=== PATIENT | male | born 1965 | race Caucasian/White ===

== ENCOUNTER 2019-05-18 08:43 | Emergency (ER) | payer MEDICARE, MEDICAID, SELFPAY ==
[2019-05-18 08:57] VITALS: BMI 25.1
[2019-05-18 08:58] VITALS: BP 149/86; PULSE 85; RESP 20; TEMP 36.5; O2SAT 95
[2019-05-18 09:58] VITALS: BP 152/92; PULSE 83; RESP 18; O2SAT 96
--- NOTE | 2019-05-18 09:59 | W.ED.SOB ---
HPI - SOB/Dyspnea General: Chief Complaint: Shortness of Breath/Dyspnea Stated Complaint: SOB Time Seen by Provider: 05/18/19 09:59 PFSH ED PFSH: Social History Smoking and tobacco status: current every day smoker Course Vital Signs: Vital signs: Vital Signs Temperature 97.7 F 05/18/19 08:58 Pulse Rate 85 05/18/19 08:58 Respiratory Rate 20 H 05/18/19 08:58 Blood Pressure 149/86 05/18/19 08:58 Pulse Oximetry 95 05/18/19 08:58 Discharge Plan Discharge Prescriptions: No Action albuterol sulfate 90 mcg/actuation Hfa Aerosol Inhaler 2 puff INHALATION 6XD PRN (Reason: Bronchospasm) RF: 0 Coding Level of Care Code ED Piano Mechanic for Franklin Engel
--- NOTE | 2019-05-18 09:59 | W.ED.SOB ---
HPI - SOB/Dyspnea General: Chief Complaint: Shortness of Breath/Dyspnea Stated Complaint: SOB Time Seen by Provider: 05/18/19 09:59 Source: patient Mode of arrival: ambulatory Limitations: no limitations History of Present Illness: HPI Narrative: Patient is a 53-year-old male with a history of COPD here for a refill request of his albuterol inhaler. Patient states he has to use his albuterol inhaler every few days and normally takes this in conjunction with an Advair inhaler. States he is currently having trouble with his Medicaid and has not been able to get these filled. Patient denies fever/chills. He is in no respiratory distress. MD elicited complaint: shortness of breath Pertinent past history: COPD Onset (ago): day(s) Timing: constant Severity: mild Known history of: COPD Associated symptoms: Reports no associated symptoms; Deny chest congestion, chest pain, fever(s), hemoptysis, lightheadedness, palpitations or syncope Review of Systems Const: Denies: fever, chills, body aches, change in appetite, change in weight or fatigue Card: Denies: chest pain, palpitations, irregular heart rhythm, edema, swelling of feet/ankles, lightheadedness, syncope or pre-syncope Resp: Reports: shortness of breath; Denies: productive cough, non-productive cough, pain on inspiration, change in phlegm color, coughing up blood or chest congestion PFSH ED PFSH: Social History Smoking and tobacco status: current every day smoker Physical Exam Const: COMMON NORMALS: no apparent distress, average body habitus, oriented x3, no limitations, alert and well nourished Resp: COMMON NORMALS: normal respiratory effort and clear to auscultation bilaterally AUSCULTATION: clear to auscultation bilaterally Cardio: COMMON NORMALS: regular rate and regular rhythm RATE: regular rate RHYTHM: regular rhythm Neuro: COMMON NORMALS: oriented x3 SENSORIUM/ORIENTATION: Yes alert Skin: COMMON NORMALS: no rashes or lesions noted GENERAL SKIN EXAM: no rashes or lesions noted Course Vital Signs: Vital signs: Vital Signs Temperature 97.7 F 05/18/19 08:58 Pulse Rate 84 05/18/19 10:26 Respiratory Rate 18 05/18/19 10:24 Blood Pressure 152/92 05/18/19 10:24 Pulse Oximetry 96 05/18/19 10:24 MDM - SOB/Dyspnea MDM Narrative: Medical decision making narrative: Patient refuses any form of work-up today including labs or x-ray imaging. Ultimately based on vitals and patient's clinical appearance I do not feel these are going to change person. Patient will be given an Albuterol inhaler here and given a prescription for his Advair. Recommend he follow-up with PCP once his Medicaid goes through. Return to ED precautions given. Discharge Plan Discharge Patient Disposition: Home, Self-Care Clinical Impression: COPD (chronic obstructive pulmonary disease) Qualifiers: COPD type: unspecified COPD Qualified Code(s): J44.9 - Chronic obstructive pulmonary disease, unspecified Condition: Stable Prescriptions: New Advair Diskus 250-50 mcg/dose blister with device 1 inh INHALATION BID Qty: 14 RF: 0 No Action albuterol sulfate 90 mcg/actuation Hfa Aerosol Inhaler 2 puff INHALATION 6XD PRN (Reason: Bronchospasm) RF: 0 Discharge Orders: Discharge Order (Routine); Ordered 05/18/19 Ordered By: Joie Lugo Referrals: Olinda Meraz DO [Family Provider] - Discharge Diet: Usual diet Discharge Activity: Increase activity as tolerated Activity Restrictions/Additional Instructions: Follow up with primary care as soon as you get your Medicaid approved. Discharge Date/Time: 05/18/19 10:26 Coding Level of Care Code ED [facility] for Franklin Engel
--- NOTE | 2019-05-18 10:01 | PC.NURSE ---
Patient reports that he is out of his inhaler and has been unable to get medications filled as he is having problems with covering his medications. Patient declined Joie's request for chest xray and stated he just needed his medication.
[2019-05-18] MEDS: albuterol 8 gm MDI 2 PUFF INHALATION (10:21)
[2019-05-18 10:24] VITALS: BP 152/92; PULSE 83; PULSE 85; RESP 18; O2SAT 94; O2SAT 96
[2019-05-18 10:26] VITALS: PULSE 84
== END 2019-05-18 10:26 | disposition home or self-care (01) ==
PROVIDERS: Emergency Provider Physician Assistant; Family Provider Family Medicine
DX: J44.9 Chronic obstructive pulmonary disease, unspecified (principal); F17.200 Nicotine dependence, unspecified, uncomplicated
CPT/HCPCS: 94640; 99281; 99282; J3535

== ENCOUNTER 2020-05-09 17:29 | Inpatient (IN) | payer MEDICARE, MEDICAID, SELFPAY ==
[2020-05-09] VITALS (18 sets, daily range): BP systolic 106–191; BP diastolic 59–119; PULSE 86–113; RESP 14–33; TEMP 37.3; O2SAT 90–100; BMI 27.6
--- NOTE | 2020-05-09 17:32 | ECG_ITS ---
[facility] Test Date: 2020-05-09 Pat Name: Kervin Karimi Department: Room: Gender: Male Pulverizer Operator: : 1965 Requested By: Mikayla Noramn Order Number: [id number] Bora MD: MARA HDEZ Measurements Intervals [place] Rate: 106 P: 79 AR: 151 QRS: 85 QRSD: 102 T: 76 QT: 308 QTc: 410 Interpretive Statements SINUS TACHYCARDIA POSSIBLE RIGHT ATRIAL ENLARGEMENT [0.25mV P WAVE] POSSIBLE LEFT ATRIAL ENLARGEMENT [-0.1mV P WAVE IN V1/V2] INCOMPLETE RIGHT BUNDLE BRANCH BLOCK [90+ ms QRS DURATION, TERMINAL R IN V1/V2, 40+ ms S IN I/aVL/V4/V5/V6] ABNORMAL RHYTHM ECG Compared to ECG 01/29/2019 18:06:39 Sinus rhythm no longer present Indeterminate axis no longer present Electronically Signed On 05-09-2020 18:15:12 C D STRIPPER by MARA HDEZ [id number]
--- NOTE | 2020-05-09 17:32 | XRR_ITS ---
PROCEDURE INFORMATION: Exam: XR Chest, 1 View Exam date and time: 05/09/2020 6:11 PM Age: 54 years old Clinical indication: Cough and shortness of breath; Additional info: Short of breath TECHNIQUE: Imaging protocol: XR of the chest Views: 1 view. COMPARISON: CR Chest 1 [place] [id number] 01/29/2019 1:21 PM FINDINGS: Lungs: There is a streaky airspace opacities in the right upper lobe and left retrocardiac region. No consolidation. No pleural effusion or pneumothorax. Pleural spaces: See Lungs finding. Heart/Mediastinum: Stable cardiomediastinal silhouette. Bones/joints: Unremarkable. XR/XR chest 1V portable [id number] IMPRESSION: Streaky opacities in the right upper lobe and left retrocardiac region, which may represent atelectasis or pneumonia in the adequate clinical setting.
[2020-05-09] MEDS: ipratropium-albuterol 3 mL Neb 9 ML INHALATION (17:58)
--- NOTE | 2020-05-09 18:08 | W.ED.SOB ---
HPI - SOB/Dyspnea General: Chief Complaint: Shortness of Breath/Dyspnea Stated Complaint: SOB/ COUGH Time Seen by Provider: 05/09/20 17:31 History of Present Illness: HPI Narrative: This patient is a 54-year-old gentleman who presents by EMS. He is here with severe shortness of breath that is been going on for several days. He has a history of COPD. He uses oxygen at home. He supposed to just use it at night but he has been using it during the day. He said he has been using 4 L nasal cannula. EMS reports that he was not on oxygen when they arrived. Also complains of coughing up green sputum. He denies history of heart problems or heart failure. He does have a history of drug abuse. He has not had any exposure to Covid that he is aware of. He said he has nebulizer treatments at home but he has not been using them as he supposed to. He is in quite a bit of distress. MD elicited complaint: shortness of breath and cough Pertinent past history: COPD and other (Drug use, unknown if IV) Onset (ago): day(s) (Several) Context: medication noncompliance Timing: constant and progressively worsening Severity: severe Exacerbating factors: lying flat, movement, coughing, talking and deep breaths Relieving factors: oxygen Known history of: COPD and recurrent pneumonia Associated symptoms: Reports chest congestion, chest pain, cough, extremity pain, lightheadedness and myalgias; Deny abdominal pain, fever(s), nausea or vomiting Treatment prior to arrival: oxygen, bronchodilator and other (Solu-Medrol) Review of Systems General: Reports: 10 or more systems reviewed and unremarkable except in HPI and below Const: Reports: fatigue and malaise; Denies: fever(s) or chills Eyes: Denies: change in vision ENMT: Denies: odynophagia Card: Reports: chest pain and lightheadedness Resp: Reports: dyspnea, productive cough, wheezing and chest congestion GI: Denies: abdominal pain, nausea or vomiting : Denies: flank pain Musc: Reports: extremity pain Skin/Breast: Denies: rash Neuro: Denies: headache(s), numbness in extremities or weakness in extremities Haroldo/Lymph: Denies: easy bruising or easy bleeding PFS ED PFSH: Medical History Asthma COPD (chronic obstructive pulmonary disease) Depression Nicotine abuse ILIR (obstructive sleep apnea) Pancreatitis seroquel related PUD (peptic ulcer disease) Surgical History H/O hernia repair Family History Other CAD (coronary artery disease) Cancer Social History Smoking and tobacco status: current every day smoker cigarettes Packs smoked per day: 0.5 Second hand smoke exposure: Yes Alcohol intake: never Substance/Drug Use: current Substance/Drug use frequency: few times a month Substance/Drug use type: Marijuana Physical Exam Const: COMMON NORMALS: patient oriented x3 and alert GENERAL APPEARANCE: in distress, anxious and appears older than stated age ORIENTATION/CONSCIOUSNESS: Yes awake, Yes oriented to person and Yes confused HENMT: HEAD & SCALP: normal to inspection FACE & SINUS: normal facial exam Eye: GENERAL EYE: appearance normal, both eyes and all related structures Neck/C-Spine: COMMON NORMALS: supple, no meningeal signs and no JVD Chest: COMMONS NORMALS: normal inspection of the chest Resp: EFFORT & INSPECTION: Yes tachypneic, Yes respiratory distress, Yes labored, Yes retractions and Yes uses accessory muscles AUSCULTATION: wheezes (Bilateral, severe) and diminished lung sounds (Left greater than right) Cardio: COMMON NORMALS: no JVD, regular rhythm and No murmurs present (Cardio) RATE: tachycardic RHYTHM: regular rhythm GI: COMMON NORMALS: Normal to inspection, nondistended, normoactive bowel sounds present, Soft to palpation and non-tender INSPECTION: Yes normal to inspection AUSCULTATION: Yes normoactive bowel sounds PALPATION: Yes Soft to palpation Back/Pelvis: COMMON NORMALS: thoracic and lumbar spine normal to inspection Extremity: COMMON NORMALS: normal to inspection Neuro: COMMON NORMALS: patient oriented x3, moves all extremities, no focal motor deficits and no sensory deficits noted SENSORIUM/ORIENTATION: Yes alert and Yes oriented to person MENINGEAL SIGNS: Yes no meningeal signs Psych: COMMON NORMALS: mental status grossly normal, cooperative and normal affect Skin: COMMON NORMALS: no rashes or lesions noted and turgor normal GENERAL SKIN EXAM: no rashes or lesions noted and turgor normal Procedures Intubation Time out performed: Yes sedative: Etomidate Mg Given: 20 paralytic: Succinylcholine Mg Given: 125 Laryngoscope: fiber optic video scope ET Tube Size: 8 Tube Secured Location: lips (22) Tube Placement Confirmation: visualized tube passing through cords, equal breath sounds bilaterally, no breath sounds over epigastrium and confirmation by capnometry Patient Tolerated Procedure: well Intubation Complications: none Additional Comments: Area was edematous, copious purulent material in the airway. I placed the OG tube with the video laryngoscope as well. Placed and confirmed placement with x-ray and air. Course ED course: Patient presented by ambulance with respiratory distress. He had markedly decreased breath sounds particularly on the left. He had significant wheezing throughout. He is somewhat confused and a difficult historian. He has a history of COPD as well as pneumonia. He also has a history of substance abuse and is a smoker. Covid was done and was negative. Chest x-ray does show some bilateral infiltrates. He coughed up some very thick copious yellow sputum while in the ED. We tried him on BiPAP for a while however his pH dropped from 7.2-7.15 and his CO2 went from 70-90. He did not improve clinically and we decided to go ahead and intubate him. He was alert enough to discuss this with me and seem to understand the plan. He was intubated and will be admitted to the ICU. I gave him antibiotics for pneumonia. His blood pressure has been elevated. I did also give morphine and Ativan to help him tolerate the BiPAP mask which was making him quite anxious. Vital Signs: Vital signs: Vital Signs Temperature 99.1 F 05/09/20 17:34 Pulse Rate 97 05/09/20 21:26 Respiratory Rate 14 05/09/20 21:26 Blood Pressure 128/73 05/09/20 21:26 Pulse Oximetry 96 05/09/20 21:26 MDM - SOB/Dyspnea MDM Narrative: Medical decision making narrative: COPD exacerbation. Pneumonia. Covid. CHF. SC. PE. Septic emboli. Lab Data: Labs: Lab Results 05/09/20 05/09/20 05/09/20 Range/Units 18:03 18:03 18:03 WBC 9.9 (4.0-10.0) 10^3/ uL RBC 5.04 (4.1-5.3) 10^6/u L Hgb 14.2 (11.7-16.6) g/dL Hct 47.0 (42.0-52.0) % MCV 93.3 (80-94) fL MCH 28.2 (28.0-34.0) pg MCHC 30.2 (30.0-36.0) g/dL RDW 13.8 (12.1-15.1) % Plt Count 226 (130-400) 10^3/c mm MPV 11.2 H (7.4-10.4) fL Neut % (Auto) 75.6 % Lymph % (Auto) 12.0 % Dickinson % (Auto) 10.9 % Eos % (Auto) 0.9 % Baso % (Auto) 0.3 % Neut # (Auto) 7.52 (1.8-7.7) 10^3/u L Lymph # (Auto) 1.2 (0.8-4.8) 10^3/u L Dickinson # (Auto) 1.1 H (0.2-0.9) 10^3/u L Eos # (Auto) 0.1 (0.0-0.8) 10^3/u L Baso # (Auto) 0.0 (0.0-0.1) 10^3/u L Nucleated RBC % (a uto) 0 % Nucleated RBCs # 0.0 /100WBC PT 13.50 (12.1-14.9) SECO NDS INR 1.00 (0.8-1.2) D-Dimer 0.61 H (0-0.59) ug/mIFE U Specimen Type Sample Site ABG pH (7.35-7.45) ABG pCO2 (35-45) mmHg ABG pO2 (80.0-100.0) mmH g ABG HCO3 (22-26) mmol/L ABG Base Excess (-2.0-2.0) mmol/ L Everardo Test Hematocrit (42-52) % O2 Delivery Device O2 Liters/Min % Intensive Care Ambulance Paramedic ID Sodium 139 (136-145) mmol/L Potassium 5.2 H (3.5-5.1) mmol/L Chloride 98 (98-107) mmol/L Carbon Dioxide 30 H (22-29) mmol/L Anion Gap 16.2 (5-19) BUN 14 (6-20) mg/dL Creatinine 0.9 (0.7-1.2) mg/dL GFR Calculation 87.6 L (90-130) mL/min Glucose 102 (65-115) mg/dL Calculated Osmolal ity 289 (285-295) mOsm/k g Lactic Acid (0.5-2.2) mmol/L Calcium 8.4 L (8.5-10.5) mg/dL Total Bilirubin 0.3 (0.15-1.2) mg/dL AST 20 (0-40) U/L ALT 16 (0-41) U/L Alkaline Phosphata se 104 (40-130) IU/L Troponin T Baselin e (0-15) ng/L NT-Pro-B Natriuret Pep 154 H (0-125) pg/mL Total Protein 6.6 (6.6-8.7) g/dL Albumin 3.6 (3.5-5.2) g/dL Globulin 3.0 (1.3-4.6) g/dL Urine Color (Yellow) Urine Appearance (CLEAR) Urine pH (5-7) Ur Specific Gravit y (1.005-1.030) Urine Protein (Negative) Urine Glucose (UA) (Normal) Urine Ketones (Negative) Urine Blood (Negative) Urine Nitrate (Negative) Urine Bilirubin (Negative) Urine Urobilinogen (Negative) mg/dL Ur Leukocyte Homa ase (Negative) Urine RBC (0-2) /hpf Urine WBC (0-5) /hpf Ur Squamous Epith Cells (0-5) /hpf Amorphous Sediment /hpf Urine Bacteria (NONE) /hpf Hyaline Casts /lpf Urine Mucus /hpf Urine Opiates Scre en (Negative) ng/mL Ur Barbiturates Sc reen (Negative) ng/mL Ur Phencyclidine S crn (Negative) ng/mL Ur Amphetamines Sc reen (Negative) ng/mL U Benzodiazepines Scrn (Negative) ng/mL Urine Cocaine Scre en (Negative) ng/mL U Marijuana (THC) Screen (Negative) ng/mL SARS-CoV-2 Ag (Rap id) (Negative) 05/09/20 05/09/20 05/09/20 Range/Units 18:03 18:03 18:03 WBC (4.0-10.0) 10^3/ uL RBC (4.1-5.3) 10^6/u L Hgb (11.7-16.6) g/dL Hct (42.0-52.0) % MCV (80-94) fL MCH (28.0-34.0) pg MCHC (30.0-36.0) g/dL RDW (12.1-15.1) % Plt Count (130-400) 10^3/c mm MPV (7.4-10.4) fL Neut % (Auto) % Lymph % (Auto) % Dickinson % (Auto) % Eos % (Auto) % Baso % (Auto) % Neut # (Auto) (1.8-7.7) 10^3/u L Lymph # (Auto) (0.8-4.8) 10^3/u L Dickinson # (Auto) (0.2-0.9) 10^3/u L Eos # (Auto) (0.0-0.8) 10^3/u L Baso # (Auto) (0.0-0.1) 10^3/u L Nucleated RBC % (a uto) % Nucleated RBCs # /100WBC PT (12.1-14.9) SECO NDS INR (0.8-1.2) D-Dimer (0-0.59) ug/mIFE U Specimen Type Sample Site ABG pH (7.35-7.45) ABG pCO2 (35-45) mmHg ABG pO2 (80.0-100.0) mmH g ABG HCO3 (22-26) mmol/L ABG Base Excess (-2.0-2.0) mmol/ L Everardo Test Hematocrit (42-52) % O2 Delivery Device O2 Liters/Min % Intensive Care Ambulance Paramedic ID Sodium (136-145) mmol/L Potassium (3.5-5.1) mmol/L Chloride (98-107) mmol/L Carbon Dioxide (22-29) mmol/L Anion Gap (5-19) BUN (6-20) mg/dL Creatinine (0.7-1.2) mg/dL GFR Calculation (90-130) mL/min Glucose (65-115) mg/dL Calculated Osmolal ity (285-295) mOsm/k g Lactic Acid 1.1 (0.5-2.2) mmol/L Calcium (8.5-10.5) mg/dL Total Bilirubin (0.15-1.2) mg/dL AST (0-40) U/L ALT (0-41) U/L Alkaline Phosphata se (40-130) IU/L Troponin T Baselin e 16 H (0-15) ng/L NT-Pro-B Natriuret Pep (0-125) pg/mL Total Protein (6.6-8.7) g/dL Albumin (3.5-5.2) g/dL Globulin (1.3-4.6) g/dL Urine Color Yellow (Yellow) Urine Appearance Clear (CLEAR) Urine pH 5 (5-7) Ur Specific Gravit y 1.025 (1.005-1.030) Urine Protein 3+ H (Negative) Urine Glucose (UA) Norm (Normal) Urine Ketones Negative (Negative) Urine Blood 2+ H (Negative) Urine Nitrate Negative (Negative) Urine Bilirubin Neg (Negative) Urine Urobilinogen Norm (Negative) mg/dL Ur Leukocyte Homa ase Negative (Negative) Urine RBC 0-4 H (0-2) /hpf Urine WBC 0-4 H (0-5) /hpf Ur Squamous Epith Cells 0-4 H (0-5) /hpf Amorphous Sediment 1+ /hpf Urine Bacteria 1+ H (NONE) /hpf Hyaline Casts 0-4 H /lpf Urine Mucus 2+ /hpf Urine Opiates Scre en (Negative) ng/mL Ur Barbiturates Sc reen (Negative) ng/mL Ur Phencyclidine S crn (Negative) ng/mL Ur Amphetamines Sc reen (Negative) ng/mL U Benzodiazepines Scrn (Negative) ng/mL Urine Cocaine Scre en (Negative) ng/mL U Marijuana (THC) Screen (Negative) ng/mL SARS-CoV-2 Ag (Rap id) (Negative) 05/09/20 05/09/20 05/09/20 Range/Units 18:03 18:16 18:25 WBC (4.0-10.0) 10^3/ uL RBC (4.1-5.3) 10^6/u L Hgb (11.7-16.6) g/dL Hct (42.0-52.0) % MCV (80-94) fL MCH (28.0-34.0) pg MCHC (30.0-36.0) g/dL RDW (12.1-15.1) % Plt Count (130-400) 10^3/c mm MPV (7.4-10.4) fL Neut % (Auto) % Lymph % (Auto) % Dickinson % (Auto) % Eos % (Auto) % Baso % (Auto) % Neut # (Auto) (1.8-7.7) 10^3/u L Lymph # (Auto) (0.8-4.8) 10^3/u L Dickinson # (Auto) (0.2-0.9) 10^3/u L Eos # (Auto) (0.0-0.8) 10^3/u L Baso # (Auto) (0.0-0.1) 10^3/u L Nucleated RBC % (a uto) % Nucleated RBCs # /100WBC PT (12.1-14.9) SECO NDS INR (0.8-1.2) D-Dimer (0-0.59) ug/mIFE U Specimen Type Arterial Sample Site Brachial, left ABG pH 7.26 L (7.35-7.45) ABG pCO2 70.5 H* (35-45) mmHg ABG pO2 60.0 L (80.0-100.0) mmH g ABG HCO3 31.9 H (22-26) mmol/L ABG Base Excess 2.4 H (-2.0-2.0) mmol/ L Everardo Test Pos Hematocrit 47.2 (42-52) % O2 Delivery Device Nc O2 Liters/Min 4.0 % Intensive Care Ambulance Paramedic ID jmn Sodium (136-145) mmol/L Potassium (3.5-5.1) mmol/L Chloride (98-107) mmol/L Carbon Dioxide (22-29) mmol/L Anion Gap (5-19) BUN (6-20) mg/dL Creatinine (0.7-1.2) mg/dL GFR Calculation (90-130) mL/min Glucose (65-115) mg/dL Calculated Osmolal ity (285-295) mOsm/k g Lactic Acid (0.5-2.2) mmol/L Calcium (8.5-10.5) mg/dL Total Bilirubin (0.15-1.2) mg/dL AST (0-40) U/L ALT (0-41) U/L Alkaline Phosphata se (40-130) IU/L Troponin T Baselin e (0-15) ng/L NT-Pro-B Natriuret Pep (0-125) pg/mL Total Protein (6.6-8.7) g/dL Albumin (3.5-5.2) g/dL Globulin (1.3-4.6) g/dL Urine Color (Yellow) Urine Appearance (CLEAR) Urine pH (5-7) Ur Specific Gravit y (1.005-1.030) Urine Protein (Negative) Urine Glucose (UA) (Normal) Urine Ketones (Negative) Urine Blood (Negative) Urine Nitrate (Negative) Urine Bilirubin (Negative) Urine Urobilinogen (Negative) mg/dL Ur Leukocyte Homa ase (Negative) Urine RBC (0-2) /hpf Urine WBC (0-5) /hpf Ur Squamous Epith Cells (0-5) /hpf Amorphous Sediment /hpf Urine Bacteria (NONE) /hpf Hyaline Casts /lpf Urine Mucus /hpf Urine Opiates Scre en Negative (Negative) ng/mL Ur Barbiturates Sc reen Negative (Negative) ng/mL Ur Phencyclidine S crn Negative (Negative) ng/mL Ur Amphetamines Sc reen Positive H (Negative) ng/mL U Benzodiazepines Scrn Negative (Negative) ng/mL Urine Cocaine Scre en Negative (Negative) ng/mL U Marijuana (THC) Screen Positive H (Negative) ng/mL SARS-CoV-2 Ag (Rap id) Negative (Negative) Critical Care Time Critical Care Time: Total Critical Care Time: 40 Attestation: I provided 40 minutes of critical care time to this patient exclusive of other procedures. This time included multiple reevaluations of respiratory status, vitals, pH and other ABG results. I adjusted the BiPAP for decreasing sats. Consultation with hospitalist for admission to the ICU. History per EMS and family members. Discharge Plan Discharge Admit Provider: Jennie Ramírez Coding Level of Care Code ED Linen Controller for Chg Fwd Exam Comprehensive
[2020-05-09 18:12] LABS: Basophils % 0.3 %; Eosinophils # 0.1 10^3/uL (0.0-0.8); Eosinophils % 0.9 %; Hemoglobin 14.2 g/dL (11.7-16.6); Lymphocytes # 1.2 10^3/uL (0.8-4.8); Mean Corpuscular HGB Conc 30.2 g/dL (30.0-36.0); Mean Corpuscular Hemoglobin 28.2 pg (28.0-34.0); Mean Corpuscular Volume 93.3 fL (80-94); Mean Platelet Volume 11.2 fL (7.4-10.4); Monocytes # 1.1 10^3/uL (0.2-0.9); Monocytes % 10.9 %; Neutrophils # 7.52 10^3/uL (1.8-7.7); Neutrophils % 75.6 %; Nucleated Red Blood Cells % 0 %; Platelet Count 226 10^3/cmm (130-400); Red Blood Count 5.04 10^6/uL (4.1-5.3); Red Cell Distribution Width 13.8 % (12.1-15.1); White Blood Count 9.9 10^3/uL (4.0-10.0)
--- NOTE | 2020-05-09 18:23 | PC.NURSE ---
EKG done at 1748 and shown to ER doctor
[2020-05-09 18:27] LABS: ABG PH Result 7.26 (7.35-7.45); Arterial Blood Gas Hematocrit 47.2 % (42-52); Base Excess ABG 2.4 mmol/L (-2.0-2.0); Blood Gas Allen Test Pos; Blood Gas Sample Site Brachial, left; Blood Gas Sample Type Arterial; HCO3 ABG 31.9 mmol/L (22-26); Oxygen Device NC
[2020-05-09 18:28] LABS: ABG PCO2 70.5 mmHg (35-45)
[2020-05-09 18:33] LABS: Troponin(5th) Baseline 16 ng/L (0-15)
[2020-05-09 18:34] LABS: Lactic Sepsis W/Reflex 1.1 mmol/L (0.5-2.2)
[2020-05-09 18:40] LABS: Alanine Aminotransferase 16 U/L (0-41); Albumin Level 3.6 g/dL (3.5-5.2); Alkaline Phosphatase 104 IU/L (40-130); Blood Urea Nitrogen 14 mg/dL (6-20); Calcium 8.4 mg/dL (8.5-10.5); Carbon Dioxide 30 mmol/L (22-29); Chloride 98 mmol/L (98-107); Glomerular Filtration Rate 87.6 mL/min (90-130); Glucose 102 mg/dL (65-115); NT Pro B Type Natriuretic Pept 154 pg/mL (0-125); Osmolality Calculated 289 mOsm/kg (285-295); Sodium 139 mmol/L (136-145); Total Bilirubin 0.3 mg/dL (0.15-1.2); Total Protein 6.6 g/dL (6.6-8.7)
[2020-05-09 18:43] LABS: Anion Gap 16.2 (5-19); Aspartate Amino Transferase 20 U/L (0-40); Potassium 5.2 mmol/L (3.5-5.1)
[2020-05-09] MEDS: morphine 4 mg/mL SDV 1 mL IVP (18:43)
[2020-05-09] MEDS: LORazepam 2 mg/mL INJ 1 mL 1 MG IVP (18:43)
[2020-05-09 18:47] LABS: Amphetamines Screen Urine Positive (Negative); Barbiturates Screen Urine Negative (Negative); Benzodiazepines Screen Urine Negative (Negative); Cocaine Screen Urine Negative (Negative); Opiate Screen Urine Negative (Negative); PCP Screen Urine Negative (Negative); THC Screen Urine Positive (Negative)
[2020-05-09 18:49] LABS: Specific Gravity, Urine 1.025 (1.005-1.030); Urine Appearance Clear (CLEAR); Urine Color Yellow (Yellow); pH Urine 5 (5-7)
[2020-05-09 18:50] LABS: Add Urine Microscopic? YES; Amorphous Sediment Urine 1+ /hpf; Bacteria Urine 1+ /hpf; Bilirubin Urine Neg (Negative); Blood Urine 2+ (Negative); Glucose Urine UA Norm (Normal); Hyaline Casts Urine 0-4 /lpf; Ketones Urine Negative (Negative); Leukocyte Esterase Urine Negative (Negative); Mucus Urine 2+ /hpf; Nitrate Urine Negative (Negative); Protein Urine 3+ (Negative); RBC Urine 0-4 /hpf (0-2); Squamous Epithelial Cell Urine 0-4 /hpf (0-5); Urobilinogen Urine Norm (Negative); WBC Urine 0-4 /hpf (0-5)
[2020-05-09 18:52] LABS: SARS Covid-2 Antigen Negative (Negative)
[2020-05-09 19:10] LABS: D Dimer 0.61 ug/mIFEU (0-0.59)
--- NOTE | 2020-05-09 19:32 | ECG_ITS ---
[facility] Test Date: 2020-05-09 Pat Name: Kervin Karimi Department: Room: ICU07 Gender: Male Pediatrics Hospitalist: : 1965 Requested By: Mikayla Norman Order Number: [id number] Bora MD: Edvin Godwin M.D. Measurements Intervals [place] Rate: 117 P: IN: QRS: 92 QRSD: 109 T: 72 QT: 316 QTc: 441 Interpretive Statements Sinus tachycardia Possible left atrial enlargement BORDERLINE RIGHT AXIS DEVIATION [QRS AXIS > 90] INCOMPLETE RIGHT BUNDLE BRANCH BLOCK [90+ ms QRS DURATION, TERMINAL R IN V1/V2, 40+ ms S IN I/aVL/V4/V5/V6] ABNORMAL RHYTHM ECG Compared to ECG 05/09/2020 17:48:27 Sinus tachycardia no longer present Electronically Signed On 05-10-2020 16:10:14 DOUGHNUT DOUGH MIXER by Edvin Godwin M.D. [id number]
--- NOTE | 2020-05-09 19:53 | P.HP_ITS ---
Providers/Chief Complaint Primary Care Provider: Gerry Calixto MD Chief Complaint: SOB/ COUGH History of Present Illness Kervin Karimi is a 54 year old male who has history of polysubstance abuse, oxygen dependent COPD, presented today with chief complaint of respiratory distress. Patient is endorsing that usually he uses 2 to 3 L of oxygen at night but recently because of respiratory stress he has started using 4 L [id number]. He called EMS because of respiratory distress however at the time of EMS evaluation he was not on any supplemental oxygen. He was put on nonrebreather mask. Initial ABG revealed hypoxia and hypercapnic respiratory failure, repeat blood gas showed worsening hence he was intubated in the ER before my interview with him. When I entered the room Dr. Roberts had just intubated him with a ET size 8, e tomidate and succinylcholine were used, he was very agitated propofol was increased up to 30 and fentanyl 50 mcg IV push was given, I requested fentanyl infusion as well, patient had thick copious yellowish-green secretions in his ET tube, during intubation a lot of pharyngeal secretions were noted. He was given ceftriaxone and azithromycin in the ER, no leukocytosis but he meets sepsis criteria with tachypnea and tachycardia, chest x-ray showing bilateral perihilar infiltrates, daughter also called us to update regarding his heavy polysubstance abuse history. In the ER he tested positive for marijuana and methamphetamines. Hyperkalemia evident on BMP. Lactic acid normal. EKG unremarkable troponin not significantly high. Post intubation chest x-ray revealed endotracheal tube 3 to 4 cm above lance because of his active agitation his endotracheal tube was not advanced. His O2 saturation was 97 to 98% on ventilator settings PRVC FiO2 50%, PEEP 8, tidal volume 550 respiratory rate 14 Review of Systems General: Reports: ROS unobtainable due to endotracheal tube Medications/Allergies Home Medications Medication Instructions Recorded Confirmed Last Taken Type albuterol sulfate 90 mcg/actuation 2 puff INHALATION 6XD PRN #18 gm 11/30/19 03/29/20 Unknown Rx aerosol inhaler fluticasone 250 mcg-salmeterol 50 1 inh INHALATION BID #14 each 11/30/19 03/29/20 Unknown Rx mcg/dose blistr powdr for inhalation oxygen-air delivery systems #1 11/30/19 03/29/20 Unknown History albuterol sulfate 2.5 mg/0.5 mL 2.5 mg INHALATION Q20M 03/29/20 03/29/20 Unknown History solution for nebulization budesonide-formoterol HFA 80 2 puff INHALATION BID #10.2 g 03/29/20 03/29/20 Unknown Rx mcg-4.5 mcg/actuation aerosol inhaler varenicline 0.5 mg (11)-1 mg (42) See Rx Instructions PO PER PKG DIR 03/29/20 03/29/20 Unknown Rx tablets in a dose pack #53 ea Allergies Allergy/AdvReac Type Severity Reaction Status Date / Time No Known Allergies Allergy Verified 03/29/20 10:33 PFSH Acute PFSH: Medical History Asthma COPD (chronic obstructive pulmonary disease) Depression Nicotine abuse ILIR (obstructive sleep apnea) Pancreatitis seroquel related PUD (peptic ulcer disease) Surgical History H/O hernia repair Family History Other CAD (coronary artery disease) Cancer Social History Smoking and tobacco status: current every day smoker cigarettes Packs smoked per day: 0.5 Second hand smoke exposure: Yes Alcohol intake: never Substance/Drug Use: current Substance/Drug use frequency: few times a month Substance/Drug use type: Marijuana Vitals/I&O/Wt Last Vital Signs Temp 99.1 F 05/09/20 17:34 Pulse 98 05/09/20 19:25 Resp 33 H 05/09/20 18:46 BP 167/98 05/09/20 18:46 Pulse Ox 96 05/09/20 19:25 Weight last 48 hrs Weight 89.811 kg Physical Exam Narrative: EXAM NARRATIVE: Middle-age male who appears stated age Facial flushing noticed, track conti noticed on upper extremities No active cellulitis Patient very agitated, currently intubated with ET tube size 8 on PRVC settings mentioned in HPI Conjunctival hyperemia bilaterally Copious yellowish-green mucoid secretions noted S1, S2 sinus tachycardia Abdomen soft, nondistended Lower extremity no edema gangrene ulcer Neuro exam limited because of mechanical intubation and current agitation Data : 05/09/20 18:03 05/09/20 18:03 Micro: Microbiology 05/09/20 17:48 Blood Culture - Preliminary Blood SPECIMEN COLLECTED 05/09/20 18:03 Blood Culture - Preliminary Blood SPECIMEN COLLECTED A&P Assessment and plan (1) Acute on chronic respiratory failure with hypoxia and hypercapnia: Status: Acute (2) Polysubstance abuse: Status: Acute (3) COPD exacerbation: Status: Acute (4) Sepsis: Status: Acute (5) Hyperkalemia: Status: Acute Additional A&P Information Acute hypoxic hypercapnic respiratory failure requiring mechanical ventilation Patient tested positive for marijuana and methamphetamine, history of IV drug abuse and alcohol abuse We will request alcohol level Currently intubated and sedated PRVC vent settings tidal volume 550 respiratory rate 14 PEEP 8 FiO2 50% Sedated with propofol and fentanyl, propofol at 30 and fentanyl running at 50 He is hypertensive and tachycardic Sepsis with COPD exacerbation Considering polysubstance abuse and alcohol dependence I would cover him for strep pneumo and Klebsiella Most likely etiology is pneumonia Copious yellowish-green pharyngeal secretions noted Patient is afebrile without leukocytosis, x-ray showing bilateral perihilar infiltrates, D-dimer 0.6 We will cover him with ceftriaxone and azithromycin, Mucomyst+ DuoNeb Check urine antigen Keep him on CIWA protocol Add thiamine before D5 half-normal maintenance fluid Hyperkalemia Mild hyperkalemia potassium 5.2, we will check CPK and phosphorus level along magnesium No XU noted No EKG changes of hyperkalemia Monitor for now Full code N.p.o. DVT prophylaxis Lovenox Attestations Medical Necessity Statement*: Need ICU for acute hypoxic hypercapnic respiratory failure anticipating stay in the hospital cross more than 2 midnights Time Spent in Patient Care: (>than 50% of time spent in counselling and/or direct pt care on unit) . 40mins Coding Level of Care Code Acute Security Consultant for [facility] Fwd Diagnoses Acute on chronic respiratory failure with hypoxia and hypercapnia J96.21; J96.22 Polysubstance abuse F19.10 COPD exacerbation J44.1 Sepsis A41.9 Hyperkalemia E87.5
[2020-05-09 20:09] LABS: Arterial Blood Gas Hematocrit 46.4 % (42-52); Base Excess ABG 0.1 mmol/L (-2.0-2.0); Blood Gas Allen Test Pos; Blood Gas Sample Site Radial, left; Blood Gas Sample Type Arterial; HCO3 ABG 32.3 mmol/L (22-26); Oxygen Device BIPAP
[2020-05-09 20:10] LABS: ABG PCO2 93.2 mmHg (35-45); ABG PH Result 7.15 (7.35-7.45)
[2020-05-09] MEDS: succinylcholine 20 mg/mL SDV 10mL 125 MG IVP (20:25)
--- NOTE | 2020-05-09 20:32 | PC.NURSE ---
EKG done at 2030 and shown to ER doctor and hospitalist
[2020-05-09] MEDS: propofol 1,000 MG/100 ML INJ 5.4 MG IV (20:35)
--- NOTE | 2020-05-09 20:35 | XRR_ITS ---
PROCEDURE INFORMATION: Exam: XR Chest, 1 View Exam date and time: 05/09/2020 8:39 PM Age: 54 years old Clinical indication: Device placement; Ett placement (vent status); Additional info: Tube placement TECHNIQUE: Imaging protocol: XR of the chest Views: 1 view. COMPARISON: CR XR chest 1V portable [id number] 05/09/2020 5:51 PM FINDINGS: Tubes, catheters and devices: Endotracheal tube is in satisfactory position. A feeding tube is in place. Lungs: There is mildly increased bilateral interstitial markings, possible hazy airspace opacities in the right lung. No consolidation. The lung bases are excluded. Pleural spaces: Unremarkable. No pleural effusion. No pneumothorax. Heart/Mediastinum: Stable cardiomediastinal silhouette. Prominent central pulmonary arteries. Bones/joints: Unremarkable. XR/XR chest 1V portable [id number] IMPRESSION: 1. Nonspecific imaging findings, which can be seen with mild pulmonary congestion or pneumonia. Clinical correlation is recommended. 2. Enlarged central pulmonary arteries, suggestive of pulmonary hypertension.
[2020-05-09] MEDS: fentaNYL 50 mcg/mL INJ 2mL IVP (20:38)
[2020-05-09] MEDS: fentaNYL 50 mcg/mL INJ 2mL 100 MCG IVP (20:45)
--- NOTE | 2020-05-09 21:13 | PC.RESP ---
ET tube pushed down 2 cm to 26 a the lip.
[2020-05-09 21:15] LABS: Troponin 5 2HR 17.42 ng/L (0-15); Troponin 5 2HR Delta 1.42 ABS# (0-10)
[2020-05-09 21:23] LABS: NT Pro B Type Natriuretic Pept 183 pg/mL (0-125)
[2020-05-09 21:28] LABS: Creatine Phosphokinase 215 U/L (39-308); Magnesium 1.8 mg/dL (1.7-2.3); Phosphorus 3.4 mg/dL (2.5-4.5)
[2020-05-09 21:47] LABS: ABG PH Result 7.19 (7.35-7.45); Arterial Blood Gas Hematocrit 42.5 % (42-52); Blood Gas Sample Site Radial, left; Blood Gas Sample Type Arterial; Blood Gas Tidal Volume 0.55; HCO3 ABG 31.9 mmol/L (22-26); Oxygen Device VENT; PO2 ABG 89.1 mmHg (80.0-100.0)
[2020-05-09 21:48] LABS: ABG PCO2 84.3 mmHg (35-45)
--- NOTE | 2020-05-09 21:50 | PC.NURSE ---
icu will call back for report
[2020-05-09] MEDS: cefTRIAXone 1,000 MG in sodium chloride 0.9% (plus) 50 ML 100 MG IV (21:53)
[2020-05-09 23:20] LABS: ABG PH Result 7.25 (7.35-7.45); Arterial Blood Gas Hematocrit 46.9 % (42-52); Blood Gas Sample Site Radial, left; Blood Gas Sample Type Arterial; Blood Gas Tidal Volume 0.55; HCO3 ABG 31.7 mmol/L (22-26); Oxygen Device VENT; PO2 ABG 72.9 mmHg (80.0-100.0)
[2020-05-09 23:21] LABS: ABG PCO2 72.2 mmHg (35-45)
[2020-05-09] MEDS: azithromycin 500 MG in sodium chloride 0.9% 250 ML 250 MG IV (23:38)
[2020-05-09 23:41] LABS: Alcohol Level < 10 mg/dL (0-10)
[2020-05-10] VITALS (48 sets, daily range): BP systolic 95–139; BP diastolic 54–74; PULSE 60–100; RESP 16–18; TEMP 36.5–37; O2SAT 91–97
[2020-05-10 00:29] LABS: Troponin 5 6HR 20.82 ng/L (0-15); Troponin 5 6HR Delta 4.82 ng/L (0-12)
[2020-05-10] MEDS: propofol 1,000 MG/100 ML INJ 16.2 MG IV (00:48)
[2020-05-10] MEDS: azithromycin 500 MG in sodium chloride 0.9% 250 ML 250 MG IV ×2 (00:49→22:51)
[2020-05-10] MEDS: enoxaparin 40 mg/0.4 mL Syringe SUBCUT ×2 (00:49→22:51)
[2020-05-10] MEDS: dextrose 5%-sod chloride 0.45% 1,000 ML 75 ML IV ×2 (00:50→11:22)
--- NOTE | 2020-05-10 02:59 | PC.NURSE ---
Addendum entered by Jacob Ling RN 05/10/20 03:57: verified waste with RN Original Note: PROPOFOL WASTE 50 mL wasted with Jarrell Ling RN
[2020-05-10 04:38] LABS: ABG PH Result 7.27 (7.35-7.45); Arterial Blood Gas Hematocrit 41.8 % (42-52); Base Excess ABG 2.2 mmol/L (-2.0-2.0); Blood Gas Sample Site Brachial, left; Blood Gas Sample Type Arterial; Blood Gas Tidal Volume 0.55; Oxygen Device VENT; PO2 ABG 75.1 mmHg (80.0-100.0)
[2020-05-10 05:08] LABS: ABG PCO2 67.3 mmHg (35-45)
[2020-05-10 05:23] LABS: Basophils % 0.1 %; Lymphocytes # 0.3 10^3/uL (0.8-4.8); Lymphocytes % 3.7 %; Mean Corpuscular HGB Conc 30.2 g/dL (30.0-36.0); Mean Corpuscular Hemoglobin 28.5 pg (28.0-34.0); Mean Corpuscular Volume 94.3 fL (80-94); Mean Platelet Volume 11.2 fL (7.4-10.4); Monocytes # 0.3 10^3/uL (0.2-0.9); Neutrophils # 7.63 10^3/uL (1.8-7.7); Nucleated Red Blood Cells % 0 %; Platelet Count 230 10^3/cmm (130-400); Red Blood Count 4.56 10^6/uL (4.1-5.3); Red Cell Distribution Width 14.1 % (12.1-15.1); White Blood Count 8.2 10^3/uL (4.0-10.0)
[2020-05-10] MEDS: LORazepam 2 mg/mL INJ 1 mL IVP (05:27)
--- NOTE | 2020-05-10 05:30 | PC.NURSE ---
FENTANYL MAX per Dr. Ramírez, fentanyl may be increased to 200
[2020-05-10 05:38] LABS: Blood Urea Nitrogen 25 mg/dL (6-20); Calcium 8.2 mg/dL (8.5-10.5); Carbon Dioxide 30 mmol/L (22-29); Chloride 98 mmol/L (98-107); Glucose 134 mg/dL (65-115); Osmolality Calculated 288 mOsm/kg (285-295); Sodium 136 mmol/L (136-145)
[2020-05-10 05:39] LABS: Creatinine Clr Calc Pharmacy 50.3938
[2020-05-10 05:40] LABS: Anion Gap 13.9 (5-19); Potassium 5.9 mmol/L (3.5-5.1)
[2020-05-10] MEDS: ipratropium-albuterol 3 mL Neb INHALATION ×3 (08:16→19:57)
[2020-05-10] MEDS: acetylcysteine 200 mg/mL SDV 4 mL 100 MG INHALATION ×3 (08:16→20:02)
[2020-05-10] MEDS: thiamine 100 mg Tablet PO (08:44)
[2020-05-10] MEDS: folic acid 1 mg Tablet PO (08:44)
[2020-05-10] MEDS: multivitamin therapeutic Tablet 1 TAB PO (08:45)
[2020-05-10] MEDS: cefTRIAXone 1,000 MG in sodium chloride 0.9% (plus) 50 ML 100 MG IV (08:45)
--- NOTE | 2020-05-10 09:48 | PC.PHAR ---
pt unable to verify medications due to being intubated-ext med history shows symbicort 80-4.5mcg 2 puffs bid filled on 05/08/20-proair 2 puffs 6 times a day filled on 05/08/20-chantix starting month filled on 03/29/20-called daughter jerri no answer
[2020-05-10] MEDS: piperacillin-tazobactam 3.375 GM in sodium chloride 0.9% (plus) 50 ML IV ×2 (09:53→17:00)
--- NOTE | 2020-05-10 13:39 | P.PN_ITS ---
Subjective Subjective: Interval history: Patient was seen and examined this morning. Currently he is intubated and sedated. No acute events overnight, continues to remain on mechanical ventilation. PRVC: Tidal volume 540, rate 17, PEEP 10, FiO2 45%. Vitals/I&O/Wt Last Vital Signs Temp 98.6 F 05/10/20 11:00 Pulse 77 05/10/20 13:22 Resp 17 05/10/20 11:51 BP 108/67 05/10/20 12:00 Pulse Ox 93 05/10/20 12:00 05/09/20 05/10/20 05/10/20 22:59 06:59 14:59 Intake Total 50.45 / 50.45 527.564 / 578.014 933.033 / 933.033 Output Total 100 / 100 100 / 100 Balance 50.45 / 50.45 427.564 / 478.014 833.033 / 833.033 Weight last 48 hrs Weight 89.811 kg Physical Exam Narrative: EXAM NARRATIVE: Currently intubated and sedated. Off sedation GCS is 10 T. HENMT: COMMON NORMALS: normocephalic and atraumatic HEAD & SCALP: normocephalic and atraumatic Resp: EFFORT & INSPECTION: Yes symmetric chest movement OTHER: Expiratory wheezing present in both the lungs, no crackles no rhonchi present. Cardio: COMMON NORMALS: regular rate, regular rhythm, S1 normal heart sound present, S2 normal heart sound present, No gallops present (Cardio), No murmurs present (Cardio), No rub (Cardio) and Peripheral pulses 2+ throughout RATE: regular rate RHYTHM: regular rhythm HEART SOUNDS: S1 normal heart sound present and S2 normal heart sound present PERIPHERAL PULSES: Peripheral pulses 2+ throughout GI: COMMON NORMALS: Normal to inspection, nondistended, normoactive bowel sounds present, Soft to palpation, non-tender, No hepatosplenomegaly present and no masses AUSCULTATION: Yes normoactive bowel sounds PALPATION: Yes Soft to palpation and Yes No hepatosplenomegaly present RECTAL EXAM: Yes deferred Extremity: COMMON NORMALS: no clubbing, cyanosis or edema and no pedal edema Urinary Catheter Management^: Ramirez: Cath Placed During This Visit: yes Reason for Continuing Indwelling Catheter: Accurate Measurement of Urinary Output in Critically Ill Patients Urinary Catheter Date of Insertion: 05/09/20 Urinary Catheter Time of Insertion: 20:34 Data : 05/10/20 04:07 05/10/20 04:07 Micro: Microbiology 05/09/20 17:48 Blood Culture - Preliminary Blood SPECIMEN COLLECTED 05/09/20 18:03 Blood Culture - Preliminary Blood SPECIMEN COLLECTED A&P Assessment and plan (1) Acute on chronic respiratory failure with hypoxia and hypercapnia: Acute on chronic hypoxic hypercapnic respiratory failure secondary to COPD exacerbation secondary to pneumonia. ABG: pH 7.27, PCO2: 67, PO2: 75 FiO2: 45% P/F : 75/0.75 On mechanical ventilation: PRVC: Tidal volume 540, rate 17, PEEP 10, FiO2 45%. Solu-Medrol 60 IV every 12H DuoNebS X-ray chest: Blood cultures: Sputum culture: Lactic acid; 1.1 Zosyn 3.375 g every 8 hours Status: Acute (2) Sepsis: Sepsis secondary pneumonia. Plan is 1 Status: Acute (3) Pneumonia: Status: Acute (4) COPD exacerbation: Status: Acute (5) Alcohol abuse: Currently on CIWA protocol: Continue IV hydration, folic acid, thiamine. Status: Acute (6) XU (acute kidney injury): Likely prerenal secondary to dehydration secondary to alcohol abuse. Baseline serum creatinine 0.9. Monitor BMP Avoid nephrotoxic Continue IV hydration Status: Acute (7) Polysubstance abuse: Status: Acute (8) Asthma: COPD asthma overlap syndrome. Plan is 1 Status: Acute Attestations Medical Necessity Statement*: Patient needs to be in hospital for the management of respiratory failure. Critical Care Time: 40 minutes of critical care time was spent on the, mechanical ventilation review, telemetry review, medication and chart review. Critical Care Time (min): 40 Coding Level of Care Code Acute Swaging Machine Adjuster for [facility] Fwd Diagnoses Acute on chronic respiratory failure with hypoxia and hypercapnia J96.21; J96.22 Sepsis A41.9 Pneumonia J18.9 COPD exacerbation J44.1 Alcohol abuse F10.10 XU (acute kidney injury) N17.9 Polysubstance abuse F19.10 Asthma J45.909
[2020-05-10] MEDS: HYDROmorphone 1 mg/mL INJ 1 mL IVP (23:27)
[2020-05-11] VITALS (41 sets, daily range): BP systolic 121–154; BP diastolic 61–91; PULSE 85–103; RESP 13–18; TEMP 36.4–37; O2SAT 92–97
[2020-05-11] MEDS: dextrose 5%-sod chloride 0.45% 1,000 ML 75 ML IV ×2 (00:45→08:59)
[2020-05-11] MEDS: piperacillin-tazobactam 3.375 GM in sodium chloride 0.9% (plus) 50 ML IV ×3 (01:36→17:07)
[2020-05-11] MEDS: HYDROmorphone 1 mg/mL INJ 1 mL IVP (02:00)
[2020-05-11] MEDS: ipratropium-albuterol 3 mL Neb INHALATION ×4 (02:04→19:48)
[2020-05-11 02:30] LABS: Arterial Blood Gas Hematocrit 44.5 % (42-52); Blood Gas Allen Test Pos; Blood Gas Operator Identificat HARKR; Blood Gas Sample Site Radial, right; Blood Gas Sample Type Arterial; Oxygen Device VENT; PO2 ABG 64.9 mmHg (80.0-100.0)
[2020-05-11 02:42] LABS: ABG PCO2 88.4 mmHg (35-45); ABG PH Result 7.11 (7.35-7.45)
[2020-05-11] MEDS: propofol 1,000 MG/100 ML INJ 8.1 MG IV (02:46)
[2020-05-11 04:59] LABS: ABG PCO2 62.2 mmHg (35-45); ABG PH Result 7.25 (7.35-7.45); Base Excess ABG -1.6 mmol/L (-2.0-2.0); HCO3 ABG 26.9 mmol/L (22-26); Oxygen Device VENT; PO2 ABG 69.4 mmHg (80.0-100.0)
[2020-05-11 05:00] LABS: Arterial Blood Gas Hematocrit 40.2 % (42-52); Blood Gas Sample Type ARTERIAL
[2020-05-11 05:45] LABS: Basophils % 0.1 %; Hematocrit 42.4 % (42.0-52.0); Hemoglobin 12.7 g/dL (11.7-16.6); Lymphocytes # 0.3 10^3/uL (0.8-4.8); Lymphocytes % 2.1 %; Mean Corpuscular Hemoglobin 28.2 pg (28.0-34.0); Mean Corpuscular Volume 94.2 fL (80-94); Mean Platelet Volume 10.9 fL (7.4-10.4); Monocytes # 0.5 10^3/uL (0.2-0.9); Monocytes % 4.2 %; Neutrophils # 11.82 10^3/uL (1.8-7.7); Neutrophils % 93.1 %; Nucleated Red Blood Cells % 0 %; Platelet Count 217 10^3/cmm (130-400); Red Cell Distribution Width 14.1 % (12.1-15.1); White Blood Count 12.7 10^3/uL (4.0-10.0)
[2020-05-11 06:13] LABS: Alanine Aminotransferase 10 U/L (0-41); Alkaline Phosphatase 76 IU/L (40-130); Anion Gap 15.8 (5-19); Aspartate Amino Transferase 13 U/L (0-40); Blood Urea Nitrogen 46 mg/dL (6-20); Calcium 7.9 mg/dL (8.5-10.5); Carbon Dioxide 25 mmol/L (22-29); Chloride 98 mmol/L (98-107); Globulin 3.5 g/dL (1.3-4.6); Glomerular Filtration Rate 19.6 mL/min (90-130); Glucose 168 mg/dL (65-115); Osmolality Calculated 294 mOsm/kg (285-295); Potassium 4.8 mmol/L (3.5-5.1); Sodium 134 mmol/L (136-145); Total Bilirubin 0.2 mg/dL (0.15-1.2); Total Protein 6.5 g/dL (6.6-8.7)
[2020-05-11] MEDS: acetylcysteine 200 mg/mL SDV 4 mL 100 MG INHALATION ×4 (07:41→19:59)
[2020-05-11] MEDS: sodium chloride 0.9% 1,000 ML 999 ML IV (08:58)
[2020-05-11] MEDS: folic acid 1 mg Tablet PO (08:58)
[2020-05-11] MEDS: multivitamin therapeutic Tablet 1 TAB PO (08:58)
[2020-05-11] MEDS: thiamine 100 mg Tablet PO (08:58)
[2020-05-11] MEDS: chlordiazePOXIDE 25 mg Capsule 50 MG PO ×2 (08:58→17:07)
[2020-05-11] MEDS: propofol 1,000 MG/100 ML INJ 16.2 MG IV ×3 (08:59→21:19)
[2020-05-11 09:54] LABS: Blood Gas Allen Test POS
--- NOTE | 2020-05-11 14:57 | PM.PN ---
Subjective Subjective: Interval history: Patient was seen and examined this morning.He remains intubated sedated and on mechanical vent. Serum creatinine has worsened to;3.3 as compared to admission serum creatinine of 0.9. He remain afebrile. His other Vitals and labs have been reviewed. Medications: Reviewed: Yes Vitals/I&O/Wt Last Vital Signs Temp 97.8 F 05/11/20 11:00 Pulse 86 05/11/20 14:28 Resp 14 05/11/20 14:28 BP 134/78 05/11/20 14:00 Pulse Ox 95 05/11/20 14:28 05/10/20 05/11/20 05/11/20 22:59 06:59 14:59 Intake Total 149 / 0470.083 6102.490 / 2762.523 875.853 / 875.853 Output Total 100 / 300 450 / 750 350 / 350 Balance 49 / 579.798 7698.490 / 2012.523 525.853 / 525.853 Weight last 48 hrs Weight 89.811 kg Physical Exam Narrative: EXAM NARRATIVE: Currently intubated and sedated. Off sedation GCS is 10 T. HENMT: COMMON NORMALS: normocephalic and atraumatic HEAD & SCALP: normocephalic and atraumatic Resp: EFFORT & INSPECTION: Yes symmetric chest movement OTHER: Expiratory wheezing present in both the lungs, no crackles no rhonchi present. Cardio: COMMON NORMALS: regular rate, regular rhythm, S1 normal heart sound present, S2 normal heart sound present, No gallops present (Cardio), No murmurs present (Cardio), No rub (Cardio) and Peripheral pulses 2+ throughout RATE: regular rate RHYTHM: regular rhythm HEART SOUNDS: S1 normal heart sound present and S2 normal heart sound present PERIPHERAL PULSES: Peripheral pulses 2+ throughout GI: COMMON NORMALS: Normal to inspection, nondistended, normoactive bowel sounds present, Soft to palpation, non-tender, No hepatosplenomegaly present and no masses AUSCULTATION: Yes normoactive bowel sounds PALPATION: Yes Soft to palpation and Yes No hepatosplenomegaly present RECTAL EXAM: Yes deferred Extremity: COMMON NORMALS: no clubbing, cyanosis or edema and no pedal edema Urinary Catheter Management^: Ramirez: Cath Placed During This Visit: yes Reason for Continuing Indwelling Catheter: Accurate Measurement of Urinary Output in Critically Ill Patients Urinary Catheter Date of Insertion: 05/09/20 Urinary Catheter Time of Insertion: 20:34 Data : 05/11/20 05:19 05/11/20 14:17 Micro: Microbiology 05/09/20 18:03 Blood Culture - Preliminary Blood Gram positive cocci 05/09/20 17:48 Blood Culture - Preliminary Blood NEGATIVE TO DATE A&P Assessment and plan (1) Acute on chronic respiratory failure with hypoxia and hypercapnia: Acute on chronic hypoxic hypercapnic respiratory failure secondary to COPD exacerbation secondary to pneumonia. ABG: pH 7.27, PCO2: 67, PO2: 75 FiO2: 45% P/F : 75/0.75 On mechanical ventilation: PRVC: Tidal volume 540, rate 17, PEEP 10, FiO2 45%. Solu-Medrol 60 IV every 24 H DuoNebS X-ray chest: Blood cultures: Sputum culture: Lactic acid; 1.1 Zosyn 3.375 g every 8 hours Status: Acute (2) Sepsis: Sepsis secondary pneumonia. Plan is 1 Status: Acute (3) Pneumonia: Status: Acute (4) COPD exacerbation: Status: Acute (5) Alcohol abuse: Currently on CIWA protocol: Continue IV hydration, folic acid, thiamine. Status: Acute (6) XU (acute kidney injury): Likely prerenal secondary to dehydration secondary to alcohol abuse. Baseline serum creatinine 0.9. Monitor BMP Avoid nephrotoxic Continue IV hydration Status: Acute (7) Polysubstance abuse: Status: Acute (8) Asthma: COPD asthma overlap syndrome. Plan is 1 Status: Acute Additional A&P Information Acute hypoxic hypercapnic respiratory failure requiring mechanical ventilation Patient tested positive for marijuana and methamphetamine, history of IV drug abuse and alcohol abuse We will request alcohol level Currently intubated and sedated PRVC vent settings tidal volume 550 respiratory rate 14 PEEP 8 FiO2 50% Sedated with propofol and fentanyl, propofol at 30 and fentanyl running at 50 He is hypertensive and tachycardic Sepsis with COPD exacerbation Considering polysubstance abuse and alcohol dependence I would cover him for strep pneumo and Klebsiella Most likely etiology is pneumonia Copious yellowish-green pharyngeal secretions noted Patient is afebrile without leukocytosis, x-ray showing bilateral perihilar infiltrates, D-dimer 0.6 We will cover him with ceftriaxone and azithromycin, Mucomyst+ DuoNeb Check urine antigen Keep him on CIWA protocol Add thiamine before D5 half-normal maintenance fluid Hyperkalemia Mild hyperkalemia potassium 5.2, we will check CPK and phosphorus level along magnesium No XU noted No EKG changes of hyperkalemia Monitor for now Full code N.p.o. DVT prophylaxis Lovenox Attestations Medical Necessity Statement*: Needs to be in hospital for management of respiratory failure, pneumonia, alcohol withdrawal. Coding Level of Care Code Acute Wallpaper Installer for g Fwd Diagnoses Acute on chronic respiratory failure with hypoxia and hypercapnia J96.21; J96.22 Sepsis A41.9 Pneumonia J18.9 COPD exacerbation J44.1 Alcohol abuse F10.10 XU (acute kidney injury) N17.9 Polysubstance abuse F19.10 Asthma J45.909
[2020-05-11 15:12] LABS: Anion Gap 15.1 (5-19); Blood Urea Nitrogen 52 mg/dL (6-20); Calcium 8.1 mg/dL (8.5-10.5); Carbon Dioxide 25 mmol/L (22-29); Chloride 98 mmol/L (98-107); Glomerular Filtration Rate 20.3 mL/min (90-130); Glucose 130 mg/dL (65-115); Osmolality Calculated 292 mOsm/kg (285-295); Potassium 5.1 mmol/L (3.5-5.1); Sodium 133 mmol/L (136-145)
[2020-05-11] MEDS: sodium chloride 0.9% 1,000 ML 75 ML IV (17:06)
--- NOTE | 2020-05-11 18:29 | PC.NURSE ---
[address] Thomas. Discussed plan of care. Reviwed labs, I&O, and meds. Orders for 1L bolus, Librium jozef, and BMP @ 1500. 1610 Dr[address] Thomas at bedside. Reported low UOP, color change to NGT output, and reviewed labs. Orders to give patient a sedation vacation. 1715 Patient woke up, opened his eyes to command, moved all extremities, shook his head No to question of pain. Sedation restated.
--- NOTE | 2020-05-11 19:00 | PC.NURSE ---
1200 Reported 1 of 4 blood cultures positive to Dr. Thomas.
[2020-05-11] MEDS: azithromycin 500 MG in sodium chloride 0.9% 250 ML 250 MG IV (22:15)
[2020-05-11] MEDS: enoxaparin 30 mg/0.3 mL Syringe SUBCUT (22:16)
--- NOTE | 2020-05-11 23:00 | PC.NURSE ---
Bladder scan completed based on low u/o. 800+ mL resulted from scan. RN flushed and irrigated chambers cath. Large amounts of sediment with instant clear/pale urine backwash. No further issues.
[2020-05-12] VITALS (38 sets, daily range): BP systolic 101–135; BP diastolic 56–77; PULSE 75–93; RESP 14–18; TEMP 36.4–37.4; O2SAT 91–96
[2020-05-12] MEDS: propofol 1,000 MG/100 ML INJ 16.2 MG IV (01:50)
[2020-05-12] MEDS: piperacillin-tazobactam 3.375 GM in sodium chloride 0.9% (plus) 50 ML IV ×3 (01:59→17:28)
[2020-05-12] MEDS: ipratropium-albuterol 3 mL Neb INHALATION ×4 (03:34→20:08)
[2020-05-12] MEDS: acetylcysteine 200 mg/mL SDV 4 mL 100 MG INHALATION ×4 (03:35→20:10)
[2020-05-12 04:28] LABS: Arterial Blood Gas Hematocrit 41.1 % (42-52); Base Excess ABG -4.3 mmol/L (-2.0-2.0); Blood Gas Allen Test Pos; Blood Gas Sample Type Arterial; Carboxyhemoglobin 0.4 %THgb (0.4-20.1); HCO3 ABG 25.4 mmol/L (22-26); Ionized Calcium Level - ABG 1.2 mmol/L (1.1-1.4); Methemoglobin 0.6 % (0.4-1.5); PO2 ABG 84.7 mmHg (80.0-100.0); Potassium Level - ABG 5.1 mmol/L (3.5-5.0); Total Hemoglobin 13.4 g/dL (14-18)
[2020-05-12 04:29] LABS: ABG PCO2 67.8 mmHg (35-45); ABG PH Result 7.18 (7.35-7.45)
[2020-05-12 04:37] LABS: Basophils % 0.1 %; Eosinophils # 0.1 10^3/uL (0.0-0.8); Eosinophils % 0.4 %; Hematocrit 41.1 % (42.0-52.0); Hemoglobin 12.1 g/dL (11.7-16.6); Lymphocytes # 0.4 10^3/uL (0.8-4.8); Lymphocytes % 3.7 %; Mean Corpuscular HGB Conc 29.4 g/dL (30.0-36.0); Mean Corpuscular Hemoglobin 28.3 pg (28.0-34.0); Mean Corpuscular Volume 96.3 fL (80-94); Mean Platelet Volume 10.8 fL (7.4-10.4); Monocytes # 0.5 10^3/uL (0.2-0.9); Neutrophils # 10.13 10^3/uL (1.8-7.7); Neutrophils % 91.1 %; Nucleated Red Blood Cells % 0 %; Platelet Count 212 10^3/cmm (130-400); Red Blood Count 4.27 10^6/uL (4.1-5.3); Red Cell Distribution Width 14.4 % (12.1-15.1); White Blood Count 11.1 10^3/uL (4.0-10.0)
[2020-05-12 05:03] LABS: Alanine Aminotransferase 8 U/L (0-41); Albumin Level 2.8 g/dL (3.5-5.2); Alkaline Phosphatase 92 IU/L (40-130); Anion Gap 16.3 (5-19); Aspartate Amino Transferase 11 U/L (0-40); Blood Urea Nitrogen 60 mg/dL (6-20); Calcium 7.7 mg/dL (8.5-10.5); Carbon Dioxide 24 mmol/L (22-29); Chloride 100 mmol/L (98-107); Globulin 3.5 g/dL (1.3-4.6); Glomerular Filtration Rate 19.6 mL/min (90-130); Glucose 102 mg/dL (65-115); NT Pro B Type Natriuretic Pept 311 pg/mL (0-125); Osmolality Calculated 297 mOsm/kg (285-295); Potassium 5.3 mmol/L (3.5-5.1); Sodium 135 mmol/L (136-145); Total Bilirubin 0.2 mg/dL (0.15-1.2); Total Protein 6.3 g/dL (6.6-8.7)
--- NOTE | 2020-05-12 05:37 | PC.NURSE ---
New orders: RN notified MD Darrell delivery professional of pt's pH result;7.18. MD also updated on pt status, and current sedation level. No indication of pt overbreathing/underbreathing vent settings, or any other respiratory distress. End tidal CO2 volume fluctuates between 30-40. Pt calm, and well rested throughout shift. MD gave orders to bag pt for 5 minsin attempts to hyperventilate, increase sedation meds, and repeat ABG at 0600. RT and RN at bedside manually bagging pt. Gtt changed, (See MAR). End tidal CO2 ivone significantly. Bagging then stopped. RT placed pt back on vent with ordered vent setting changes.
[2020-05-12] MEDS: propofol 1,000 MG/100 ML INJ 26.9 MG IV ×4 (05:55→16:36)
--- NOTE | 2020-05-12 06:00 | XRR_ITS ---
PROCEDURE INFORMATION: Exam: XR Chest, 1 View Exam date and time: 05/12/2020 5:51 AM Age: 54 years old Clinical indication: Condition or disease; Lung condition and disease; Pneumonia; Cough and shortness of breath; Additional info: Pna TECHNIQUE: Imaging protocol: XR of the chest Views: 1 view. COMPARISON: CR XR chest 1V portable [id number] 05/09/2020 8:22 PM FINDINGS: Tubes, catheters and devices: Endotracheal tube is in satisfactory position. Feeding tube is in satisfactory position. Lungs: See Pleural spaces finding. Pleural spaces: There is a small left pleural effusion. There is airspace opacities in the lower lungs. No pneumothorax. Heart/Mediastinum: Stable cardiomediastinal silhouette. Bones/joints: Unremarkable. XR/XR chest 1V portable [id number] IMPRESSION: Bibasilar airspace opacities and small left pleural effusion. Pneumonia should be excluded clinically. Mild pulmonary edema can have this appearance.
[2020-05-12 06:26] LABS: Blood Gas Allen Test Pos; Blood Gas Operator Identificat JB; Blood Gas Sample Site Radial, right; Blood Gas Sample Type Arterial; Oxygen Device VENT
[2020-05-12 06:38] LABS: ABG PH Result 7.27 (7.35-7.45); Arterial Blood Gas Hematocrit 36.8 % (42-52); Base Excess ABG -2.4 mmol/L (-2.0-2.0); HCO3 ABG 25.2 mmol/L (22-26); PO2 ABG 65.4 mmHg (80.0-100.0)
[2020-05-12] MEDS: sodium chloride 0.9% 1,000 ML 75 ML IV ×2 (07:15→19:25)
[2020-05-12] MEDS: chlordiazePOXIDE 25 mg Capsule 50 MG PO ×2 (09:49→17:27)
[2020-05-12] MEDS: multivitamin therapeutic Tablet 1 TAB PO (09:50)
[2020-05-12] MEDS: folic acid 1 mg Tablet PO (09:50)
[2020-05-12] MEDS: thiamine 100 mg Tablet PO (09:50)
--- NOTE | 2020-05-12 14:40 | PC.SOCIAL ---
Pg 2 IMM Pt is intubated at this time. Left a message on pt's daughter's voicemail & explained IMM. SS number provided if she has any questions. Left a copy a pt's bedside. Initialed, dated, & timed a copy & placed in chart.
[2020-05-12 15:58] LABS: ABG PCO2 51.5 mmHg (35-45); ABG PH Result 7.28 (7.35-7.45); Alveolar-Arterial Oxygen Gradi 28.4 mmHg (5-10); Arterial Blood Gas Hematocrit 37.2 % (42-52); Base Excess ABG -3.2 mmol/L (-2.0-2.0); Blood Gas Allen Test Pos; Blood Gas Sample Site Brachial, right; Blood Gas Sample Type Arterial; Carboxyhemoglobin 0.6 %THgb (0.4-20.1); HGB O2 Sat 92.6 % (95-100); Ionized Calcium Level - ABG 1.1 mmol/L (1.1-1.4); Methemoglobin 1.1 % (0.4-1.5); Oxygen Device VENT; Oxygen Saturation ABG 94.2; Potassium Level - ABG 4.7 mmol/L (3.5-5.0); Total Hemoglobin 12.1 g/dL (14-18)
[2020-05-12 17:00] LABS: Anion Gap 16.8 (5-19); Blood Urea Nitrogen 68 mg/dL (6-20); Carbon Dioxide 22 mmol/L (22-29); Chloride 102 mmol/L (98-107); Glomerular Filtration Rate 20.3 mL/min (90-130); Glucose 114 mg/dL (65-115); Osmolality Calculated 303 mOsm/kg (285-295); Potassium 4.8 mmol/L (3.5-5.1); Sodium 136 mmol/L (136-145)
--- NOTE | 2020-05-12 17:30 | P.PN_ITS ---
Subjective Subjective: Interval history: Mr. Araujo was seen and examined this morning,he continues to remain on mechanical ventilation.Off sedation GCS : 10 T Serum creatinine has peaked: 3.2, though BUN is trending up:68, Solu-Medrol use can contribute to trending up. Chest x-ray in the morning : Bibasilar airspace opacities and small left pleural effusion. ABG: pH: 7.28, PCO2: 51, PO2: 74, FiO2: 50% Medications: Reviewed: Yes Vitals/I&O/Wt Last Vital Signs Temp 97.5 F L 05/12/20 15:00 Pulse 81 05/12/20 17:00 Resp 18 05/12/20 17:12 BP 111/70 05/12/20 17:00 Pulse Ox 93 05/12/20 17:00 05/12/20 05/12/20 05/12/20 06:59 14:59 22:59 Intake Total 1558.465 / 2729.918 355.593 / 355.593 104.035 / 459.628 Output Total 1100 / 1500 600 / 600 Balance 458.465 / 1229.918 355.593 / 355.593 -495.965 / -140.372 Physical Exam Narrative: EXAM NARRATIVE: Currently intubated and sedated. Off sedation GCS is 10 T. HENMT: COMMON NORMALS: normocephalic and atraumatic HEAD & SCALP: normocephalic and atraumatic Resp: EFFORT & INSPECTION: Yes symmetric chest movement OTHER: B/L Diminished Breath sounds. Cardio: COMMON NORMALS: regular rate, regular rhythm, S1 normal heart sound present, S2 normal heart sound present, No gallops present (Cardio), No murmurs present (Cardio), No rub (Cardio) and Peripheral pulses 2+ throughout RATE: regular rate RHYTHM: regular rhythm HEART SOUNDS: S1 normal heart sound present and S2 normal heart sound present PERIPHERAL PULSES: Peripheral pulses 2+ throughout GI: COMMON NORMALS: Normal to inspection, nondistended, normoactive bowel sounds present, Soft to palpation, non-tender, No hepatosplenomegaly present and no masses AUSCULTATION: Yes normoactive bowel sounds PALPATION: Yes Soft to palpation and Yes No hepatosplenomegaly present RECTAL EXAM: Yes deferred Extremity: COMMON NORMALS: no clubbing, cyanosis or edema and no pedal edema Urinary Catheter Management^: Ramirez: Cath Placed During This Visit: yes Reason for Continuing Indwelling Catheter: Accurate Measurement of Urinary Output in Critically Ill Patients Urinary Catheter Date of Insertion: 05/09/20 Urinary Catheter Time of Insertion: 20:34 Data : 05/12/20 03:07 05/12/20 16:35 Micro: Microbiology 05/09/20 18:03 Blood Culture - Preliminary Blood Coagulase negativ staphylococc A&P Assessment and plan (1) Acute on chronic respiratory failure with hypoxia and hypercapnia: Acute on chronic hypoxic hypercapnic respiratory failure secondary to COPD exacerbation secondary to pneumonia. Chest x-ray : Bibasilar airspace opacities and small left pleural effusion. ABG: pH: 7.28, PCO2: 51, PO2: 74, FiO2: 50% On mechanical ventilation: PRVC: Tidal volume 600, rate 18, PEEP 10, FiO2 45%. Initially on Solu-Medrol 60 IV every 24 H have been Discontinued DuoNebS Monitor X-ray chest: Blood cultures: Coagulase negative staph: Likely skin contaminant. Sputum culture: Lactic acid; 1.1 Zosyn 3.375 g every 8 hours Azithromycin 500 mg I.V Daily Status: Acute (2) Sepsis: Sepsis secondary pneumonia. Plan is 1 Status: Acute (3) Pneumonia: Status: Acute (4) COPD exacerbation: Status: Acute (5) Alcohol abuse: Currently on CIWA protocol: Continue IV hydration, folic acid, thiamine. Status: Acute (6) XU (acute kidney injury): Likely prerenal secondary to dehydration secondary to alcohol abuse. Baseline serum creatinine 0.9. Monitor BMP Avoid nephrotoxic Continue IV hydration Status: Acute (7) Polysubstance abuse: Status: Acute (8) Asthma: COPD asthma overlap syndrome. Plan is 1 Status: Acute Additional A&P Information Acute hypoxic hypercapnic respiratory failure requiring mechanical ventilation Patient tested positive for marijuana and methamphetamine, history of IV drug abuse and alcohol abuse Currently intubated and sedated PRVC vent settings tidal volume 600 respiratory rate 18 PEEP 10 FiO2: 40% Sedated with propofol and fentanyl, and versed Sepsis with COPD exacerbation Considering polysubstance abuse and alcohol dependence I would cover him for strep pneumo and Klebsiella Most likely etiology is pneumonia Copious yellowish-green pharyngeal secretions noted Patient is afebrile without leukocytosis, x-ray showing bilateral perihilar infiltrates, D-dimer 0.6 We will cover him with Zosyn and azithromycin, Mucomyst+ DuoNeb Check urine antigen Monitor CIWA protocol thiamine Folic Acid N.S @125 CC/HR Hyperkalemia: Resolved Full code N.p.o. DVT prophylaxis Lovenox Attestations Medical Necessity Statement*: Needs to be in hospital for management of hypercapnic respiratory failure as well sepsis secondary to pneumonia Coding Level of Care Code Acute Production Operations Manager for [facility] Fwd Exam Detailed Diagnoses Acute on chronic respiratory failure with hypoxia and hypercapnia J96.21; J96.22 Sepsis A41.9 Pneumonia J18.9 COPD exacerbation J44.1 Alcohol abuse F10.10 XU (acute kidney injury) N17.9 Polysubstance abuse F19.10 Asthma J45.909
--- NOTE | 2020-05-12 18:34 | PC.NURSE ---
sputum to lab.
[2020-05-12] MEDS: propofol 1,000 MG/100 ML INJ 21.6 MG IV ×2 (19:25→23:00)
--- NOTE | 2020-05-12 19:52 | PC.NURSE ---
Received bed side shift report from off going nurse. Pt's plan of care reviewed. Pt is currently intubate and sedated. Pt appears to be resting comfortably at this time. Respirations are even and unlabored. No s/sx of distress noted. Pt responds to pain stimuli but falls back to sleep. Pt is currently on 150mcg of Fentanly, 40mcg/kg/min of Propofol, and 3mg/hr of versed. Pt is sating 93% on vent with settings of 45% Fi02, 600 Tv, PEEP of 10, and a rate of 18. Bed in lowest and locked position, call light within reach, x's 4 rails up, x's 2 soft wrist restraints. Bed alarm on. Will continue to monitor pt.
--- NOTE | 2020-05-12 20:52 | PC.PHAR ---
Vancomycin is dosed at 1000mg IVPB every 24 hours to produce a predicted trough level of 17.63 (population based pharmacokinetic analysis) A trough level has been ordered from the lab to be obtained before the fourth dose to confirm and adjust if needed.
[2020-05-12] MEDS: vancomycin 1,000 MG in sodium chloride 0.9% 250 ML 250 MG IV (21:32)
[2020-05-12] MEDS: enoxaparin 30 mg/0.3 mL Syringe SUBCUT (21:33)
[2020-05-12] MEDS: azithromycin 500 MG in sodium chloride 0.9% 250 ML 250 MG IV (22:38)
[2020-05-13] VITALS (41 sets, daily range): BP systolic 104–152; BP diastolic 61–89; PULSE 74–94; RESP 17–19; TEMP 36.4–36.9; O2SAT 92–95
[2020-05-13] MEDS: piperacillin-tazobactam 3.375 GM in sodium chloride 0.9% (plus) 50 ML IV ×3 (02:17→17:45)
[2020-05-13] MEDS: ipratropium-albuterol 3 mL Neb INHALATION ×4 (03:09→20:09)
[2020-05-13] MEDS: acetylcysteine 200 mg/mL SDV 4 mL 100 MG INHALATION ×3 (03:15→20:09)
[2020-05-13] MEDS: propofol 1,000 MG/100 ML INJ 16.2 MG IV ×5 (03:15→23:28)
[2020-05-13] MEDS: sodium chloride 0.9% 1,000 ML 125 ML IV ×3 (03:19→17:55)
[2020-05-13 04:52] LABS: ABG PCO2 53.1 mmHg (35-45); ABG PH Result 7.26 (7.35-7.45); Arterial Blood Gas Hematocrit 38.2 % (42-52); Base Excess ABG -4.1 mmol/L (-2.0-2.0); Blood Gas Allen Test Pos; Blood Gas Operator Identificat JB; Blood Gas Sample Site Radial, left; Blood Gas Sample Type Arterial; Carboxyhemoglobin 0.5 %THgb (0.4-20.1); HCO3 ABG 23.5 mmol/L (22-26); HGB O2 Sat 91.9 % (95-100); Ionized Calcium Level - ABG 1.1 mmol/L (1.1-1.4); Methemoglobin 1.1 % (0.4-1.5); Oxygen Device VENT; Oxygen Saturation ABG 93.5; PO2 ABG 72.1 mmHg (80.0-100.0); Potassium Level - ABG 4.7 mmol/L (3.5-5.0); Total Hemoglobin 12.5 g/dL (14-18)
--- NOTE | 2020-05-13 05:44 | PC.NURSE ---
Pt noted to have 100mL of urine in chambers at end of shift. Sediment is seen throughout chambers tubing. Bladder distention noted when palpated. Tried irrigating chambers with sterile irrigation solution but was unable to flush past chambers cath. Removed 14F chambers and placed an 18F chambers using aseptic technique. 900mL of cloudy/sediment urine return noted. Inflated bulb with 10mL of NS. Pt tolerated well.
[2020-05-13 05:51] LABS: Basophils % 0.2 %; Eosinophils % 0.1 %; Hematocrit 39.4 % (42.0-52.0); Hemoglobin 11.8 g/dL (11.7-16.6); Mean Corpuscular HGB Conc 29.9 g/dL (30.0-36.0); Mean Corpuscular Volume 93.6 fL (80-94); Mean Platelet Volume 10.6 fL (7.4-10.4); Monocytes # 0.8 10^3/uL (0.2-0.9); Monocytes % 8.8 %; Neutrophils # 7.22 10^3/uL (1.8-7.7); Neutrophils % 78.8 %; Nucleated Red Blood Cells % 0 %; Platelet Count 222 10^3/cmm (130-400); Red Blood Count 4.21 10^6/uL (4.1-5.3); Red Cell Distribution Width 14.5 % (12.1-15.1); White Blood Count 9.2 10^3/uL (4.0-10.0)
[2020-05-13 06:08] LABS: Alanine Aminotransferase 8 U/L (0-41); Albumin Level 2.8 g/dL (3.5-5.2); Alkaline Phosphatase 71 IU/L (40-130); Anion Gap 15.9 (5-19); Aspartate Amino Transferase 11 U/L (0-40); Blood Urea Nitrogen 74 mg/dL (6-20); Calcium 7.8 mg/dL (8.5-10.5); Carbon Dioxide 22 mmol/L (22-29); Chloride 104 mmol/L (98-107); Globulin 3.3 g/dL (1.3-4.6); Glucose 86 mg/dL (65-115); Osmolality Calculated 305 mOsm/kg (285-295); Potassium 4.9 mmol/L (3.5-5.1); Sodium 137 mmol/L (136-145); Total Bilirubin 0.2 mg/dL (0.15-1.2); Total Protein 6.1 g/dL (6.6-8.7)
[2020-05-13] MEDS: chlordiazePOXIDE 25 mg Capsule 50 MG PO ×2 (08:16→17:44)
[2020-05-13] MEDS: thiamine 100 mg Tablet PO (08:16)
[2020-05-13] MEDS: folic acid 1 mg Tablet PO (08:16)
[2020-05-13] MEDS: multivitamin therapeutic Tablet 1 TAB PO (08:16)
[2020-05-13] MEDS: pantoprazole 40 mg SDV IVP ×2 (08:46→21:42)
--- NOTE | 2020-05-13 09:32 | PC.CHAP ---
Pastoral Care Encounter/Spiritual Assessment Type of Contact [] Declined electronic scale subassembler visit [] Patient/Family/Request visit [] Outpatient visit [] Follow-up visit [] Physician referral [] Code/Alert [x] Routine visit [] Staff referral [] Actively dying [] Patient sleeping [] Family support [] [] Out of room [] Palliative care [] [] Receiving care in room [] Pre-surgical visit [] Trauma [] Long length of stay [x] ICU visit [x] Other: ventilator x Relational/Emotional Strength [] Patient feels connected with others/family/visitors/staff [] Distress [] Loneliness/isolation [] Abandonment Spirituality of Patient [] Person of Breana [] Attends Mosque of their Breana [] Believes in Prayer [] Reads Bible or Shinto materials [] There are Spiritual issues to be addressed Choker Hooker Interventions [x] Prayer [] Active listening [] Non-anxious presence [] Spiritual/emotional support [] Crisis/trauma care [] Spiritual counseling [] Bereavement support [] Provided bereavement packet [] Provided Bible/devotional materials [] Provided toy/stuffed animal, coloring book to patient or family member [] Provided Communion [] Anointing/[place] [] Salvation [x] Completed spiritual assessment [] Other: Impact on Illness or Injury [] Angry [] Fearful [] Anxious [] Often cries [] Exhaustion [] Unable to work [] Unable to attend religion [] Unable to walk/stand [] Unable to read [] Unable to drive [] Unable to eat/drink [] Unable to sleep [] Unable to be with family [] Patient intubated [] Other: Summary Time spent with patient
--- NOTE | 2020-05-13 17:52 | P.PN_ITS ---
Subjective Subjective: Interval history: Cr at 3.2, U/O 2200ml, afebrile, net + 6 L since admission Medications: Reviewed: Yes Vitals/I&O/Wt Last Vital Signs Temp 98.3 F 05/13/20 15:00 Pulse 89 05/13/20 16:00 Resp 18 05/13/20 17:18 BP 135/79 05/13/20 16:00 Pulse Ox 93 05/13/20 16:00 05/13/20 05/13/20 05/13/20 06:59 14:59 22:59 Intake Total 1221.232 / 3046.643 1420.253 / 1420.253 Output Total 1000 / 1600 800 / 800 Balance 221.232 / 1446.643 620.253 / 620.253 Physical Exam Narrative: EXAM NARRATIVE: GEN:intubated, sedated CVS: S1S2 N RS: CTA B/L Abd: Soft, nt/nd , bs+ TRAIL CONSTRUCTION WORKER: unable to assess Urinary Catheter Management^: Ramirez: Cath Placed During This Visit: yes Reason for Continuing Indwelling Catheter: Accurate Measurement of Urinary Output in Critically Ill Patients Urinary Catheter Date of Insertion: 05/09/20 Urinary Catheter Time of Insertion: 20:34 Data : 05/13/20 04:38 05/13/20 04:38 A&P Assessment and plan (1) Acute on chronic respiratory failure with hypoxia and hypercapnia: Acute on chronic hypoxic hypercapnic respiratory failure secondary to COPD exacerbation, secondary to pneumonia. Net +6L since admission lasix 40mg iv today Status: Acute (2) Sepsis: Sepsis secondary pneumonia. on zosyn, vanc currently d/c vancomycin , check MRSA swab, vanc level in am Status: Acute (3) Pneumonia: currently on zosyn and vanc s/c vanc Status: Acute (4) COPD exacerbation: Status: Acute (5) Alcohol abuse: Currently on CIWA protocol: Continue IV hydration, folic acid, thiamine. intubated, sedated currently Status: Acute (6) XU (acute kidney injury): Likely prerenal secondary to dehydration secondary to alcohol abuse. Baseline serum creatinine 0.9. worsening, stop IVF today net + 6L since admissiobn, trial of lasix check echo to estimate EF Status: Acute (7) Polysubstance abuse: Status: Acute (8) Asthma: COPD asthma overlap syndrome. Plan is 1 Status: Acute Attestations Medical Necessity Statement*: ongoing respireatory support, mechanical ventilation Coding Level of Care Code Acute Machine Splitter for Chg Fwd Diagnoses Acute on chronic respiratory failure with hypoxia and hypercapnia J96.21; J96.22 Sepsis A41.9 Pneumonia J18.9 COPD exacerbation J44.1 Alcohol abuse F10.10 XU (acute kidney injury) N17.9 Polysubstance abuse F19.10 Asthma J45.909
[2020-05-13] MEDS: FUROsemide 10 mg/mL SDV 4mL 40 MG IVP (21:44)
[2020-05-13] MEDS: enoxaparin 30 mg/0.3 mL Syringe SUBCUT (23:29)
[2020-05-13] MEDS: azithromycin 500 MG in sodium chloride 0.9% 250 ML 250 MG IV (23:29)
[2020-05-14] VITALS (40 sets, daily range): BP systolic 117–176; BP diastolic 59–85; PULSE 83–102; RESP 18–20; TEMP 36.8–37.6; O2SAT 83–94
[2020-05-14] MEDS: acetylcysteine 200 mg/mL SDV 4 mL 100 MG INHALATION ×3 (02:59→20:22)
[2020-05-14] MEDS: ipratropium-albuterol 3 mL Neb INHALATION ×4 (02:59→20:22)
[2020-05-14] MEDS: piperacillin-tazobactam 3.375 GM in sodium chloride 0.9% (plus) 50 ML IV ×3 (03:12→18:08)
[2020-05-14 04:39] LABS: ABG PCO2 51.3 mmHg (35-45); ABG PH Result 7.24 (7.35-7.45); Arterial Blood Gas Hematocrit 41.1 % (42-52); Blood Gas Allen Test Pos; Blood Gas Sample Site Radial, left; Blood Gas Sample Type Arterial; Carboxyhemoglobin 0.6 %THgb (0.4-20.1); HCO3 ABG 21.8 mmol/L (22-26); HGB O2 Sat 92.7 % (95-100); Ionized Calcium Level - ABG 1.2 mmol/L (1.1-1.4); Oxygen Saturation ABG 94.1; PO2 ABG 72.5 mmHg (80.0-100.0); Potassium Level - ABG 4.5 mmol/L (3.5-5.0); Total Hemoglobin 13.4 g/dL (14-18)
[2020-05-14 04:40] LABS: Alveolar-Arterial Oxygen Gradi 24.1 mmHg (5-10); Oxygen Device VENT
[2020-05-14] MEDS: propofol 1,000 MG/100 ML INJ 16.2 MG IV ×2 (05:10→11:15)
[2020-05-14 05:40] LABS: Basophils % 0.2 %; Eosinophils # 0.1 10^3/uL (0.0-0.8); Eosinophils % 0.6 %; Hematocrit 41.5 % (42.0-52.0); Hemoglobin 12.6 g/dL (11.7-16.6); Lymphocytes % 12.2 %; Mean Corpuscular HGB Conc 30.4 g/dL (30.0-36.0); Mean Corpuscular Hemoglobin 28.1 pg (28.0-34.0); Mean Corpuscular Volume 92.6 fL (80-94); Mean Platelet Volume 10.3 fL (7.4-10.4); Monocytes % 11.6 %; Nucleated Red Blood Cells % 0 %; Platelet Count 221 10^3/cmm (130-400); Red Blood Count 4.48 10^6/uL (4.1-5.3); Red Cell Distribution Width 14.8 % (12.1-15.1); White Blood Count 8.5 10^3/uL (4.0-10.0)
[2020-05-14 05:51] LABS: D Dimer 0.89 ug/mIFEU (0-0.59)
[2020-05-14 05:52] LABS: Vancomycin Random 7.2 ug/mL (20.0-40.0)
[2020-05-14 06:18] LABS: Alanine Aminotransferase 14 U/L (0-41); Albumin Level 2.9 g/dL (3.5-5.2); Alkaline Phosphatase 83 IU/L (40-130); Anion Gap 18.4 (5-19); Aspartate Amino Transferase 20 U/L (0-40); Calcium 8.3 mg/dL (8.5-10.5); Carbon Dioxide 21 mmol/L (22-29); Chloride 107 mmol/L (98-107); Globulin 3.4 g/dL (1.3-4.6); Glomerular Filtration Rate 18.9 mL/min (90-130); Glucose 73 mg/dL (65-115); Osmolality Calculated 318 mOsm/kg (285-295); Potassium 4.4 mmol/L (3.5-5.1); Sodium 142 mmol/L (136-145); Total Bilirubin 0.3 mg/dL (0.15-1.2); Total Protein 6.3 g/dL (6.6-8.7)
[2020-05-14 06:20] LABS: Lactate (Lactic Acid level) 0.6 mmol/L (0.5-2.2)
[2020-05-14 06:21] LABS: NT Pro B Type Natriuretic Pept 451 pg/mL (0-125)
[2020-05-14 06:34] LABS: Blood Urea Nitrogen 85 mg/dL (6-20)
[2020-05-14] MEDS: thiamine 100 mg Tablet PO (08:57)
[2020-05-14] MEDS: chlordiazePOXIDE 25 mg Capsule 50 MG PO (08:57)
[2020-05-14] MEDS: folic acid 1 mg Tablet PO (08:58)
[2020-05-14] MEDS: multivitamin therapeutic Tablet 1 TAB PO (08:58)
--- NOTE | 2020-05-14 09:08 | USCV_ITS ---
Kervin Karimi Age: 54 Gender: M : 1965 Exam Date: 05/14/2020 09:49 Ordering Phys: Ana Denson MD Technologist: Chase Jo Exam Location: [facility] [place]_ Indication: AFIB HISTORY: ? PE PROCEDURES: The venous duplex Doppler examination of both lower extremities was performed in the standard fashion. The following venous structures were evaluated: common femoral vein, profunda vein, proximal portion of the greater saphenous vein, superficial femoral vein, and the popliteal vein. In addition, the posterior tibial and peroneal trunk were evaluated. Bilaterally, the common femoral, superficial femoral, profunda femoral, popliteal, posterior tibial, greater saphenous veins, and the peroneal trunk were identified and interrogated in the standard fashion. These veins were found to be easily compressible with spontaneous blood flow. No evidence of insufficiency or thrombus noted. FINDINGS: Normal 2-D Doppler and augmentation and compressibility throughout the lower extremity venous structures. Additional imaging through the proximal calf veins also reveals no thrombus. Limited evaluation of the greater saphenous vein is patent with no thrombus.. CONCLUSIONS No evidence of right lower extremity DVT. No evidence of left lower extremity DVT. Vinicio Cook MD (Electronically Signed) Final Date: 14 May 2020 11:53 S
--- NOTE | 2020-05-14 09:08 | CT_ITS ---
WS: [id number] CT CHEST TECHNIQUE: Noncontrast CT of the chest with coronal and sagittal reformatted images. CLINICAL INFORMATION: persistent hypoxia COMPARISON: None. DLP: 1493.[address] scans at [facility] use at least one of these dose optimization techniques: automat ed exposure control; mA and/or kV adjustment per patient size (includes targeted exams where dose is matched to clinical indication); or iterative reconstruction. FINDINGS: Small bilateral pleural effusions with consolidative atelectasis in the left lower lobe. Air bronchog ellis left lower lobe. Recommend correlation for pneumonia.Small amount of compressive atelectasis rig ht lower lobe. Mild chronic emphysematous changes. Upper lungs are well aerated. Endotracheal tube with tip above th e lance. Enteric tube with tip in the stomach. No mediastinal or hilar lymphadenopathy. No axillary lymphadenopathy. Adrenal glands are normal. Partially visualized cholelithiasis. CT/CT chest wo con [id number] IMPRESSION: 1. Small bilateral pleural effusions with compressive atelectasis left lower l obe with air bronchograms. Recommend correlation for pneumonia. 2. Slight patchy atelectasis right lower lobe. 3. Upper lungs are well aerated. 4. Partially visualized cholelithiasis. 5. Endotracheal tube and enteric tube.
--- NOTE | 2020-05-14 09:28 | PC.CHAP ---
Pastoral Care Encounter/Spiritual Assessment Type of Contact [] Declined chart snatcher visit [] Patient/Family/Request visit [] Outpatient visit [] Follow-up visit [] Physician referral [] Code/Alert [x] Routine visit [] Staff referral [] Actively dying [] Patient sleeping [] Family support [] [] Out of room [] Palliative care [] [] Receiving care in room [] Pre-surgical visit [] Trauma [] Long length of stay [x] ICU visit [x] Other:ventilator Relational/Emotional Strength [] Patient feels connected with others/family/visitors/staff [] Distress [] Loneliness/isolation [] Abandonment Spirituality of Patient [] Person of Breana [] Attends Pentecostal of their Breana [] Believes in Prayer [] Reads Bible or Restorationist materials [] There are Spiritual issues to be addressed Environmental Protection Specialist Interventions [x] Prayer [] Active listening [] Non-anxious presence [] Spiritual/emotional support [] Crisis/trauma care [] Spiritual counseling [] Bereavement support [] Provided bereavement packet [] Provided Bible/devotional materials [] Provided toy/stuffed animal, coloring book to patient or family member [] Provided Communion [] Anointing/[place] [] Salvation [x] Completed spiritual assessment [] Other: Impact on Illness or Injury [] Angry [] Fearful [] Anxious [] Often cries [] Exhaustion [] Unable to work [] Unable to attend druze [] Unable to walk/stand [] Unable to read [] Unable to drive [] Unable to eat/drink [] Unable to sleep [] Unable to be with family [] Patient intubated [] Other: Summary Time spent with patient
[2020-05-14] MEDS: pantoprazole 40 mg SDV IVP (10:02)
[2020-05-14] MEDS: enoxaparin 100 mg/mL Syringe 90 MG SUBCUT (10:03)
--- NOTE | 2020-05-14 11:43 | PC.NURSE ---
CT Patient was taken to ct at 1115 by two nurses and RT. All vitals were WNL and patient tolerated well.
--- NOTE | 2020-05-14 14:38 | US_ITS ---
WS: [id number] ULTRASOUND RENAL TECHNIQUE: Ultrasound examination of both kidneys. CLINICAL INFORMATION: renal failure COMPARISON: None. FINDINGS: Tiny parenchymal calcifications. No obstruction. RIGHT: Echogenicity: Normal. Cortical thickness: 2.0 cm; Normal. Hydronephrosis: None. Perinephric fluid: None. Right kidney measures: 10.1 cm x 6.7 cm x 6.4 cm. LEFT: Simple left renal cyst measuring 2.5 x 1.9 x 2.8 cm Echogenicity: Normal. Cortical thickness: 3.5 cm; Normal. Hydronephrosis: None. Perinephric fluid: None. Left kidney measures: 10.9 cm x 6.6 cm x 8.8 cm. Normal visualized aorta. Ramirez catheter. US/US renal BI* [id number] IMPRESSION: 1. Simple left renal cyst measuring 2.5 x 1.9 x 2.8cm 2. No hydronephrosis in either kidney. 3. Ramirez catheter.
--- NOTE | 2020-05-14 14:39 | P.CONIM_ITS ---
Providers/Reason For Consult Consulting Physican/Specialty*: Nephrology Reason for Consult*: Eval for XU Attending Physician: Ana Denson MD Primary Care Provider: Gerry Calixto MD History of Present Illness History of Present Illness Thank you for consultation, today I had the pleasure of reviewing Mr. Karimi for evaluation of acute kidney injury. Initially presented on with increasing shortness of breath. Following admission to the emergency room, he developed respiratory failure from hypoxia (lowest pO2 of 60) and hypercapnia despite nonrebreather mask. He has since been intubated in the intensive care unit. He has required considerable amount of sedation given his history of polysubstance abuse and difficulty keeping him calm. In the emergency room he tested positive for marijuana and methamphetamines. He was initially treated with combination antibiotics including Rocephin, azithromycin to cover for pneumonia. Given the acute kidney injury, he did receive some intravenous fluid and yesterday received normal saline at 125 mL/h. Because of increasing wheezing it was felt to have hypervolemia and was given intravenous diuretics, producing a robust volume of urine of 4.175L yesterday. On admission serum creatinine 0.9, the following day to increase to 1.9, up to 3.3 on the , the remained in the low 3 range, today 3.4 marginally increasing from yesterday. No imaging of his lungs are available at this time on admission urinalysis demonstrated 3+ urinary protein, 2+ blood but no RBCs. Blood pressure when he first arrived 160/119, following admission, will his blood pressure dropped down to 95/54 Other germane testing includes CPK of 215 on admission mild decrease in bicarb level, normokalemia. No exposure to IV contrast, unknown use of other potentially nephrotoxic substances prior to hospitalization including anti-inflammatory medications etc. Review of systems is unobtainable given altered mental status, critical status. Review of Systems Narrative: Review of systems is unobtainable given altered mental status, critical status. Meds/Allergies Home Medications and Allergies Home Medications Medication Instructions Recorded Confirmed Last Taken Type Unable to Assess 05/10/20 05/10/20 Unknown History Allergies Allergy/AdvReac Type Severity Reaction Status Date / Time No Known Allergies Allergy Verified 03/29/20 10:33 Current Medications Current Medications Generic Name Dose Route Start Last Admin Trade Name Freq PRN Reason Stop Dose Admin Acetylcysteine 100 mg 05/11/20 09:00 05/14/20 08:19 Acetylcysteine 200 Mg/Ml Sdv 4 Ml INHALATION 100 mg Q6H.RESPIRATORY NATALIE Administration Albuterol/Ipratropium 3 ml 05/13/20 21:00 05/14/20 14:00 Ipratropium-Albuterol 3 Ml Neb INHALATION 3 ml Q6H.RESPIRATORY NATALIE Administration Chlordiazepoxide 50 mg 05/11/20 09:00 05/14/20 08:57 Chlordiazepoxide 25 Mg Capsule PO 50 mg BID NATALIE Administration Folic Acid 1 mg 05/10/20 09:00 05/14/20 08:58 Folic Acid 1 Mg Tablet PO 1 mg DAILY NATALIE Administration Fentanyl 1,000 mcg/ Sodium 100 mls @ 0 mls/hr 05/09/20 20:45 05/14/20 13:30 Chloride IV 80 mcg/hr .Q0M NATALIE 8 mls/hr Titration Protocol Per Protocol Midazolam HCl 100 mg/ Sodium 100 mls @ 0 mls/hr 05/10/20 03:15 05/14/20 13:30 Chloride IV 1 mg/hr .Q0M NATALIE 1 mls/hr Titration Protocol Per Protocol Piperacillin Sod/Tazobactam 50 mls @ 12.5 mls/hr 05/10/20 10:00 05/14/20 14:18 Sod 3.375 gm/ Sodium Chloride IV 05/15/20 09:59 Infused Q8H NATALIE Infusion Protocol Propofol 1,000 mg in 100 mls @ 0 mls/hr 05/11/20 02:45 05/14/20 11:15 Diprivan IV 30 mcg/kg/min .Q0M NATALIE 16.2 mls/hr Administration Protocol Per Protocol Lorazepam 2 mg 05/09/20 22:45 05/10/20 05:27 Lorazepam 2 Mg/Ml Inj 1 Ml IVP 2 mg PRN PRN Administration WITHDRAWAL Protocol Multivitamins Therapeutic 1 tab 05/10/20 09:00 05/14/20 08:58 Multivitamin Therapeutic Tablet PO 1 tab DAILY NATALIE Administration Pantoprazole Sodium 40 mg 05/13/20 08:00 05/14/20 10:02 Pantoprazole 40 Mg Sdv IVP 40 mg Q12H NATALIE Administration Thiamine Mononitrate 100 mg 05/10/20 09:00 02/23/21 08:57 Thiamine 100 Mg Tablet PO 100 mg DAILY NATALIE Administration PFSH Acute PFSH: Medical History Asthma COPD (chronic obstructive pulmonary disease) Depression Nicotine abuse ILIR (obstructive sleep apnea) Pancreatitis seroquel related PUD (peptic ulcer disease) Surgical History H/O hernia repair Family History Other CAD (coronary artery disease) Cancer Social History Smoking and tobacco status: current every day smoker cigarettes Packs smoked per day: 0.5 Second hand smoke exposure: Yes Alcohol intake: never Substance/Drug Use: current Substance/Drug use frequency: few times a month Substance/Drug use type: Marijuana Vitals/I&O/Wt Last Vital Signs Temp 99.0 F 05/14/20 07:00 Pulse 85 05/14/20 14:06 Resp 18 05/14/20 14:03 BP 120/67 05/14/20 14:00 Pulse Ox 93 05/14/20 14:01 05/13/20 05/14/20 05/14/20 22:59 06:59 14:59 Intake Total 3079.847 / 4500.100 1432.25 / 5932.350 420.15 / 420.15 Output Total 400 / 1200 2850 / 4050 925 / 925 Balance 2679.847 / 3300.100 -1417.75 / 1882.350 -504.85 / -504.85 Physical Exam Narrative: EXAM NARRATIVE: HEENT: Wet mucosa, no jvp, non icteric Lungs: Bilaterally clear without discernible wheeze, rales in all lung zones CVS: S1 S2, no murmurs Abdo: Soft, BS ok Ext 4: Minimal edema, peripheral perfusion with no cyanosis Neurological: Grossly non-focal Urinary Catheter Management^: Ramirez: Cath Placed During This Visit: yes Reason for Continuing Indwelling Catheter: Accurate Measurement of Urinary Output in Critically Ill Patients Urinary Catheter Date of Insertion: 05/09/20 Urinary Catheter Time of Insertion: 20:34 Data Micro: Micro: Microbiology 05/12/20 18:20 Sputum Culture - P reliminary Sputum - Endotrac heal Tube Aspirate Yeast species 05/14/20 04:15 Blood Culture - Pr eliminary Blood SPECIMEN SAMIRA COCHRAN 05/14/20 04:15 Blood Culture - Pr eliminary Blood SPECIMEN [facility] SAMMIE A&P Additional A&P Information 1. XU Picture is most consistent with acute tubular injury, from the precipitous drop in blood pressure following hospitalization from 160 systolic to 95 systolic in the setting of hypoxia. CPK initially 215, will recheck this. Given history of polysubstance abuse will check hepatitis and HIV, however, associated respective glomerulopathies did not present like this. Urine output is robust in response to diuretics, will defer diuretic administ ration today, however will also defer further use of IV fluid. Creatinine has remained relatively stable over the last 48 hours and I suspect we are already seeing a plateau. We will get renal imaging for completion including renal sonogram. We will get a urinalysis with fractional excretion of sodium and urea and also quantify urinary protein. No indication for dialysis, I hope this can be avoided. Strict ins and outs Avoid usual nephrotoxic agents Dose medications for GFR less than 30. 2. Vent dependent respiratory failure Vent settings and management per ICU team. 3. Lytes It is noted that historically his PCO2 was a little elevated as was his bicarb, when he first presented this is also the case, however he did have more of a profound respiratory acidosis to drive down his pH, following intubation, PCO2 is now drifted down to 51, bicarb is also drifted down to 21.8 today, indicating that he does have now have a mixed metabolic and respiratory acidosis. For a chronic PCO2 51.3, the appropriate metabolic compensation will be to increase serum bicarb by ~4. I will give sodium bicarb tabs 650mg po BID x 4 doses to assist in the appropriate renal response . 4. Sepsis Currently receiving Vanco and Zosyn. Goal Vanco trough < 19. 5. 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
[2020-05-14 15:18] LABS: Creatine Phosphokinase 140 U/L (39-308)
--- NOTE | 2020-05-14 15:41 | P.CONIM_ITS ---
Providers/Reason For Consult Consulting Physican/Specialty*: Pulmonary and critical care medicine Reason for Consult*: Inability to extubate Attending Physician: Ana Denson MD Primary Care Provider: Gerry Calixto MD History of Present Illness History of Present Illness Kervin Karimi is a 54 year old male she of polysubstance abuse. Patient is an active abuser. He presented to the hospital on May 19 with worsening shortness of breath. In the emergency department the patient was found to be in acute on chronic hypoxic and hypercapnic respiratory failure. He was subsequently intubated. His urine tox screen at that time was positive for methamphetamine and marijuana. Chest x-ray in the emergency department revealed interstitial opacity in the right upper lobe and alveolar opacity, likely atelectasis in the retrocardiac area. I was asked to evaluate the patient as his mental status did not improve and the patient remains intubated. A CT scan of the chest obtained this morning revealed bilateral pleural effusion left greater than right. The patient has small amount of right-sided pleural effusion. There is atelectasis of the left lower lobe with adjacent pleural effusion. The patient has evidence of emphysematous changes. His endotracheal aspirate culture from May 12 revealed some yeast. Blood culture from 05/09 is positive for coag negative staph likely contaminant. The patient is currently on Zosyn. His WBC count is normal. The patient has suffered from nonoliguric acute kidney injury. His creatinine is stable at 3.4. The BUN is 85. The initial hyperkalemia on admission has resolved. I performed a bedside ultrasound. The patient has bilateral airlines on lung ultrasound. There is small left-sided pleural effusion without any evidence of complexity. The IVC is mildly dilated. The cardiac function was normal. Review of Systems Narrative: Unable to assess Meds/Allergies Home Medications and Allergies Home Medications Medication Instructions Recorded Confirmed Last Taken Type Unable to Assess 05/10/20 05/10/20 Unknown History Allergies Allergy/AdvReac Type Severity Reaction Status Date / Time No Known Allergies Allergy Verified 03/29/20 10:33 Current Medications Current Medications Generic Name Dose Route Start Last Admin Trade Name Freq PRN Reason Stop Dose Admin Acetylcysteine 100 mg 05/11/20 09:00 05/14/20 08:19 Acetylcysteine 200 Mg/Ml Sdv 4 Ml INHALATION 100 mg Q6H.RESPIRATORY NATALIE Administration Albuterol/Ipratropium 3 ml 05/13/20 21:00 05/14/20 14:00 Ipratropium-Albuterol 3 Ml Neb INHALATION 3 ml Q6H.RESPIRATORY NATALIE Administration Chlordiazepoxide 50 mg 05/11/20 09:00 05/14/20 08:57 Chlordiazepoxide 25 Mg Capsule PO 50 mg BID NATALIE Administration Folic Acid 1 mg 05/10/20 09:00 05/14/20 08:58 Folic Acid 1 Mg Tablet PO 1 mg DAILY NATALIE Administration Fentanyl 1,000 mcg/ Sodium 100 mls @ 0 mls/hr 05/09/20 20:45 05/14/20 13:30 Chloride IV 80 mcg/hr .Q0M NATALIE 8 mls/hr Titration Protocol Per Protocol Midazolam HCl 100 mg/ Sodium 100 mls @ 0 mls/hr 05/10/20 03:15 05/14/20 13:30 Chloride IV 1 mg/hr .Q0M NATALIE 1 mls/hr Titration Protocol Per Protocol Piperacillin Sod/Tazobactam 50 mls @ 12.5 mls/hr 05/10/20 10:00 05/14/20 14:18 Sod 3.375 gm/ Sodium Chloride IV 05/15/20 09:59 Infused Q8H NATALIE Infusion Protocol Propofol 1,000 mg in 100 mls @ 0 mls/hr 05/11/20 02:45 05/14/20 11:15 Diprivan IV 30 mcg/kg/min .Q0M NATALIE 16.2 mls/hr Administration Protocol Per Protocol Lorazepam 2 mg 05/09/20 22:45 05/10/20 05:27 Lorazepam 2 Mg/Ml Inj 1 Ml IVP 2 mg PRN PRN Administration WITHDRAWAL Protocol Multivitamins Therapeutic 1 tab 05/10/20 09:00 05/14/20 08:58 Multivitamin Therapeutic Tablet PO 1 tab DAILY NATALIE Administration Pantoprazole Sodium 40 mg 05/13/20 08:00 05/14/20 10:02 Pantoprazole 40 Mg Sdv IVP 40 mg Q12H NATALIE Administration Thiamine Mononitrate 100 mg 05/10/20 09:00 05/14/20 08:57 Thiamine 100 Mg Tablet PO 100 mg DAILY NATALIE Administration PFSH Acute PFSH: Medical History Asthma COPD (chronic obstructive pulmonary disease) Depression Nicotine abuse ILIR (obstructive sleep apnea) Pancreatitis seroquel related PUD (peptic ulcer disease) Surgical History H/O hernia repair Family History Other CAD (coronary artery disease) Cancer Social History Smoking and tobacco status: current every day smoker cigarettes Packs smoked per day: 0.5 Second hand smoke exposure: Yes Alcohol intake: never Substance/Drug Use: current Substance/Drug use frequency: few times a month Substance/Drug use type: Marijuana Vitals/I&O/Wt Last Vital Signs Temp 99.0 F 05/14/20 07:00 Pulse 85 05/14/20 14:06 Resp 18 05/14/20 14:03 BP 120/67 05/14/20 14:00 Pulse Ox 93 05/14/20 14:01 05/14/20 05/14/20 05/14/20 06:59 14:59 22:59 Intake Total 1432.25 / 5932.350 420.15 / 420.15 Output Total 2850 / 4050 925 / 925 Balance -1417.75 / 1882.350 -504.85 / -504.85 Physical Exam Narrative: EXAM NARRATIVE: General: The patient is intubated and sedated HEENT: Bilateral miopic pupil Neck: No JVD Respiratory: Auscultation: Bilateral coarse crackles at lung bases, no wheezing or rhonchi Cardiovascular: Regular rate and rhythm, S1-S2 present, no murmur, no peripheral edema. Abdomen: Soft, nondistended, positive bowel sound Skin: No rash, track conti in bilateral upper extremities Neuro: Unable to assess Urinary Catheter Management^: Ramirez: Cath Placed During This Visit: yes Reason for Continuing Indwelling Catheter: Accurate Measurement of Urinary Output in Critically Ill Patients Urinary Catheter Date of Insertion: 05/09/20 Urinary Catheter Time of Insertion: 20:34 Data Micro: Micro: Microbiology 05/12/20 18:20 Sputum Culture - P reliminary Sputum - Endotrac heal Tube Aspirate Yeast species 05/14/20 04:15 Blood Culture - Pr eliminary Blood SPECIMEN [facility] SAMMIE 05/14/20 04:15 Blood Culture - Pr eliminary Blood SPECIMEN [facility] Other Data: Attestation for Other Data: I personally reviewed and interpreted the following: Other data: I have reviewed his laboratory, microbiologic and radiologic data. Please see the HPI for details. A&P Assessment and plan (1) Acute on chronic respiratory failure with hypoxia and hypercapnia: The patient has chronic hypoxic and hypercapnic respiratory failure at baseline. When he presented to the hospital the patient was suffering from acute on chronic hypoxic and hypercapnic respiratory failure. Currently the patient is intubated and mechanically ventilated. He is on volume control mode with an FiO2 of 45% with good oxygen saturation. The blood gas this morning revealed respiratory acidosis. The etiology for the acute worsening of the respiratory status was likely secondary to pneumonia. The patient is currently on Zosyn. On the CT scan of the chest there is evidence of atelectasis of the left lower lobe with very atelectatic pleural effusion. This is likely secondary to mucous plug. Going to perform a bronchoscopy to clean of the airways as well as obtain respiratory culture. I am going to change his sedation protocol with the hope to waking up tomorrow morning and see if he is ready for extubation. Status: Acute (2) Pneumonia: Patient is currently on Zosyn. We will follow up with the BAL culture. Status: Acute (3) COPD (chronic obstructive pulmonary disease): The patient has a previous diagnosis of COPD and evidence of paraseptal and centrilobular emphysema on the CT scan. I do not have any previous pulmonary function test. The patient does not have any evidence of exacerbation currently. I am going to start the patient on DuoNeb and Pulmicort nebulization. The patient has thick secretion. Currently he is on Mucomyst. I am going to add 3% sodium chloride solution nebulization as well. Status: Acute (4) XU (acute kidney injury): The patient has nonoliguric acute kidney injury. This is likely a combination of the sepsis, pneumonia, hypoxia. The patient does not have any definitive evidence of volume overload at this point. He does have mildly dilated IVC. His urine output is very good. I expect his creatinine and BUN to get better in the near future. Status: Acute (5) Alcohol abuse: The patient is being treated for alcohol withdrawal. However, his daughter told me today that he does not drink alcohol. The patient is a known polysubstance abuser. I did not find any evidence of liver cirrhosis on ultrasound. At this time, I am going to discontinue the Versed. We will start the patient on Precedex and come down on the sedation as much as possible. It would not be unusual for the patient to have toxic metabolic encephalopathy. And if necessary, we will treat him accordingly. Status: Acute Coding Level of Care Code Acute Furnace Combustion Tester for [facility] Fwd Diagnoses Acute on chronic respiratory failure with hypoxia and hypercapnia J96.21; J96.22 Pneumonia J18.9 COPD (chronic obstructive pulmonary disease) J44.9 XU (acute kidney injury) N17.9 Alcohol abuse F10.10
[2020-05-14 15:50] LABS: HIV 1 & 2 Antibody Non-Reactive (Non-Reactiv); HIV 1 & 2 Antigen Non-Reactive (Non-Reactiv)
[2020-05-14 15:52] LABS: Hepatitis A Antibody IgM Non-Reactive (Nonreactive); Hepatitis B Core IgM Non-Reactive (Nonreactive); Hepatitis B Surface Antigen Non-Reactive (Nonreactive); Hepatitis C Virus Antibody Non-Reactive (Nonreactive)
--- NOTE | 2020-05-14 16:06 | P.PN_ITS ---
Subjective Subjective: Interval history: remains intubated, sedated, no acute events overnight cr continues to worsen Medications: Reviewed: Yes Vitals/I&O/Wt Last Vital Signs Temp 99.0 F 05/14/20 07:00 Pulse 85 05/14/20 14:06 Resp 18 05/14/20 15:41 BP 120/67 05/14/20 14:00 Pulse Ox 93 05/14/20 14:01 05/14/20 05/14/20 05/14/20 06:59 14:59 22:59 Intake Total 1432.25 / 5932.350 420.15 / 420.15 Output Total 2850 / 4050 925 / 925 Balance -1417.75 / 1882.350 -504.85 / -504.85 Physical Exam Narrative: EXAM NARRATIVE: GEN: intubated, sedated CVS: S1S2 N RS: CTA B/L Abd: Soft, nt/nd , bs+ TRANSPORT SPECIALIST: unable to assess Urinary Catheter Management^: Ramirez: Cath Placed During This Visit: yes Reason for Continuing Indwelling Catheter: Accurate Measurement of Urinary Output in Critically Ill Patients Urinary Catheter Date of Insertion: 05/09/20 Urinary Catheter Time of Insertion: 20:34 Data : 05/15/20 03:21 05/15/20 03:21 Micro: Microbiology 05/12/20 18:20 Sputum Culture - Preliminary Sputum - Endotracheal Tube Aspirate Yeast species 05/14/20 04:15 Blood Culture - Preliminary Blood SPECIMEN COLLECTED 05/14/20 04:15 Blood Culture - Preliminary Blood SPECIMEN COLLECTED A&P Assessment and plan (1) Acute on chronic respiratory failure with hypoxia and hypercapnia: Acute on chronic hypoxic hypercapnic respiratory failure secondary to COPD exacerbation, secondary to pneumonia. CT chest today to evalute for pneumonia/effusion LE duplex to evaluate for VTE, cannot get CTA chest to evalute for PE due to XU Presumptive lovenox 1mg/kg x 1 until results of LE duplex obtained pulm/critical care consult to assist with extubation ttempts/vent management Status: Acute (2) Sepsis: Sepsis, likely secondary pneumonia. on zosyn Previously on Vanc, level not in toxic range Status: Acute (3) Pneumonia: Status: Acute (4) COPD exacerbation: Status: Acute (5) Alcohol abuse: Currently on CIWA protocol: Continue IV hydration, folic acid, thiamine. intubated, sedated currently Status: Acute (6) XU (acute kidney injury): Likely prerenal secondary to dehydration secondary to alcohol abuse. Baseline serum creatinine 0.9. echo pending nephrology consult for worsening XU, mixed acidosis on ABG Status: Acute (7) Polysubstance abuse: Status: Acute (8) Asthma: COPD asthma overlap syndrome. Plan is 1 Status: Acute Attestations Medical Necessity Statement*: respiratory failure, need for mechanical ventilation Coding Level of Care Code Acute Respiratory Therapy Director for g Fwd Diagnoses Acute on chronic respiratory failure with hypoxia and hypercapnia J96.21; J9 6.22 Sepsis A41.9 Pneumonia J18.9 COPD exacerbation J44.1 Alcohol abuse F10.10 XU (acute kidney injury) N17.9 Polysubstance abuse F19.10 Asthma J45.909
--- NOTE | 2020-05-14 16:12 | PM.ACPR ---
Procedure/Consent Time out: Time Out Performed: Yes Consent: Consent for Procedure: Consent obtained from other (indicate) Procedure Narrative: Name of the procedure: Bronchoscopy inspection of the airway, bronchoalveolar lavage, control of bleeding. Indication: Acute hypoxic respiratory failure with left lower lobe atelectasis. Suspicion for mucous plug. Medication: The patient is on intravenous Versed, propofol and fentanyl drip. Description of the procedure: Consent was obtained for the bronchoscopy procedure from his daughter. The patient was intubated for acute hypoxic respiratory failure. 1% lidocaine 5 mL was introduced through the ET tube. The bronchoscope was as far advanced through the ET tube to the lance was visualized. There was erythema present throughout bilateral airways, more on the left side. Thick pus looking secretion was noted in the bilateral airways, predominantly on the left side. The left lower lobe bronchus was occluded with mucous plug. There was no endobronchial mass lesion or airway obstruction. A bronchoalveolar lavage was obtained from the anterior medial segment of the left lower lobe. 60 cc of normal saline was instilled 15 mL of cloudy return was obtained. Specimen was sent for Gram stain and culture. Acute Procedures Epistaxis Control: Time out performed: Yes
[2020-05-14] MEDS: dexmedetomidine 400 MCG in sodium chloride 0.9% (100 ml) 100 ML 9.3 MCG IV (16:40)
[2020-05-14] MEDS: famotidine 20 mg/2 mL INJ IVP (17:00)
[2020-05-14] MEDS: propofol 1,000 MG/100 ML INJ 8.1 MG IV (18:02)
[2020-05-14] MEDS: sodium bicarbonate 650 mg Tablet PO (18:04)
[2020-05-14 19:11] LABS: Urine Creatinine 62 mg/dL (39-259); Urine Protein Random 15 mg/dL; Urine Random Sodium 70 mmol/L
--- NOTE | 2020-05-14 19:14 | USCV_ITS ---
Trev Kervin Age: 54 Gender: M : 1965 Exam Date: 05/14/2020 06:51 Ordering Phys: Ana Denson MD Technologist: Yin Cortez [place] [facility] [place]: ESTIMATE EF BP: 120 / 63 HR: 85 Rhythm: Sinus Technical Quality: Adequate MEASUREMENTS (Male / Female) Normal Values 2D ECHO LV Diastolic Diameter PLAX 4.6 cm 4.2 - 5.9 / 3.9 - 5.3 cm LV Systolic Diameter PLAX 2.5 cm LV Chamber Size 3.3 cm IVS Diastolic Thickness 1.1 cm 0.6 - 1.0 / 0.6 - 0.9 cm IVS Systolic Thickness 1.7 cm LVPW Diastolic Thickness 1.4 cm 0.6 - 1.0 / 0.6 - 0.9 cm LVPW Systolic Thickness 2.1 cm RV Chamber Size 3.7 cm LVOT Diameter 2.0 cm LV Ejection Fraction 2D Teich 76.8 % LA Diameter 3.7 cm LA Width 3.4 cm LA Height 5.0 cm RA Width 4.0 cm RA Height 4.2 cm Aorta at Sinotubular Diameter 3.1 cm M-MODE LV Diastolic Diameter MM 5.1 cm 4.2 - 5.9 / 3.9 - 5.3 cm LV Systolic Diameter MM 3.3 cm LV Ejection Fraction MM Teich 63.3 % IVS Diastolic Thickness MM 1.1 cm 0.6 - 1.0 / 0.6 - 0.9 cm IVS Systolic Thickness MM 1.6 cm LVPW Diastolic Thickness MM 1.5 cm 0.6 - 1.0 / 0.6 - 0.9 cm LVPW Systolic Thickness MM 2.0 cm RV Diastolic Diameter MM 1.8 cm Aortic Annulus Diameter 3.6 cm LA Ao Ratio MM 1.1 MV E Point Septal Separation 0.5 cm DOPPLER AV Peak Velocity 150.0 cm/s LVOT Peak Velocity 92.0 cm/s AV Area Cont Eq vti 2.7 cm squared AV Area Cont Eq pk 2.0 cm squared MV Area PHT 5.4 cm squared Mitral E to A Ratio 1.4 MV E' Velocity 50.5 cm/s Mitral E to MV E' Ratio 7.2 Mitral E to LV E' Lateral Ratio 6.9 Mitral E to LV E' Septal Ratio 7.5 TR Peak Velocity 136.6 cm/s TR Peak Gradient 7.5 mmHg TR Mean Velocity 91.7 cm/s TR Mean Gradient 4.0 mmHg TR Velocity Time Integral 35.5 cm TV Peak E Velocity 76.0 cm/s Right Atrial Pressure 15.0 mmHg Pulmonary Artery Systolic Pressu 22.5 mmHg PV Peak Velocity 80.0 cm/s RV Acceleration Time 0.2 s RV Ejection Time 0.4 s RV AcT/ET 0.5 FINDINGS Left Ventricle Normal left ventricular cavity size. Normal left ventricular systolic function. No regional wall motion abnormalities. Left ventricular ejection fraction is estimated at 63 %. Normal diastolic function. Right Ventricle The right ventricle is normal in size and function. Right Atrium The right atrium is normal in size. Left Atrium The left atrium is normal in size. Mitral Valve Structurally normal mitral valve without significant stenosis or prolapse. There is no mitral regurgitation. Aortic Valve Structurally normal aortic valve without significant sclerosis or stenosis. There is no aortic regurgitation. Tricuspid Valve Structurally normal tricuspid valve without significant stenosis or regurgitation. Pulmonary artery systolic pressure is normal. Pulmonic Valve Structurally normal pulmonic valve without significant stenosis. There is no pulmonic regurgitation. Pericardium Normal pericardium without effusion. Aorta Normal ascending aorta dimension. CONCLUSIONS 1-Normal left ventricular cavity size. Normal left ventricular systolic function. No regional wall motion abnormalities. Left ventricular ejection fraction is estimated at 63 %. Normal diastolic function. 2-There is no pericardial effusion. 3-No significant valve abnormalities. 4-Pulmonary artery systolic pressure is within normal limits. 5-Right atrial pressure is around 5 mm of mercury. Jennie Khan MD (Electronically Signed) Final Date: 14 May 2020 19:05 S
[2020-05-14] MEDS: budesonide 0.5 mg/2 mL Neb 0.25 MG INHALATION (20:22)
[2020-05-14 21:03] LABS: Add Urine Microscopic? YES; Bilirubin Urine Neg (Negative); Blood Urine 2+ (Negative); Glucose Urine UA Norm (Normal); Ketones Urine Negative (Negative); Leukocyte Esterase Urine Negative (Negative); Nitrate Urine Negative (Negative); Protein Urine Neg (Negative); Specific Gravity, Urine 1.015 (1.005-1.030); Urine Appearance SL Hazy (CLEAR); Urine Color Yellow (Yellow); Urobilinogen Urine Norm (Negative); pH Urine 5 (5-7)
[2020-05-14 21:11] LABS: RBC Urine 25-40 /hpf (0-2); Triple Phosphate Crystal Urine 15-25 /hpf
[2020-05-14 21:12] LABS: Squamous Epithelial Cell Urine 0-4 /hpf (0-5)
[2020-05-14 21:13] LABS: Bacteria Urine 2+ /hpf
[2020-05-14 21:14] LABS: Add Urine Culture? Yes
[2020-05-15] VITALS (42 sets, daily range): BP systolic 132–195; BP diastolic 62–95; PULSE 82–103; RESP 17–26; TEMP 37.4–38.2; O2SAT 92–94
[2020-05-15] MEDS: dexmedetomidine 400 MCG in sodium chloride 0.9% (100 ml) 100 ML 23.4 MCG IV (01:24)
[2020-05-15 02:07] LABS: Urea Nitrogen,Urine Random 539 mg/dL
[2020-05-15] MEDS: piperacillin-tazobactam 3.375 GM in sodium chloride 0.9% (plus) 50 ML IV (02:42)
[2020-05-15] MEDS: ipratropium-albuterol 3 mL Neb INHALATION ×4 (03:14→20:05)
[2020-05-15] MEDS: acetylcysteine 200 mg/mL SDV 4 mL 100 MG INHALATION ×4 (03:14→20:06)
[2020-05-15 04:03] LABS: Basophils % 0.3 %; Eosinophils # 0.1 10^3/uL (0.0-0.8); Eosinophils % 0.7 %; Hematocrit 41.4 % (42.0-52.0); Hemoglobin 12.4 g/dL (11.7-16.6); Lymphocytes # 0.5 10^3/uL (0.8-4.8); Lymphocytes % 7.5 %; Mean Corpuscular Hemoglobin 28.2 pg (28.0-34.0); Mean Corpuscular Volume 94.1 fL (80-94); Mean Platelet Volume 10.4 fL (7.4-10.4); Monocytes # 0.7 10^3/uL (0.2-0.9); Monocytes % 9.2 %; Neutrophils # 5.82 10^3/uL (1.8-7.7); Neutrophils % 80.6 %; Nucleated Red Blood Cells % 0 %; Platelet Count 216 10^3/cmm (130-400); Red Cell Distribution Width 15.2 % (12.1-15.1); White Blood Count 7.2 10^3/uL (4.0-10.0)
[2020-05-15] MEDS: dexmedetomidine 400 MCG in sodium chloride 0.9% (100 ml) 100 ML 18.7 MCG IV ×2 (04:20→12:03)
[2020-05-15 04:28] LABS: Alanine Aminotransferase 17 U/L (0-41); Albumin Level 2.9 g/dL (3.5-5.2); Alkaline Phosphatase 93 IU/L (40-130); Anion Gap 21.1 (5-19); Aspartate Amino Transferase 19 U/L (0-40); Calcium 8.4 mg/dL (8.5-10.5); Carbon Dioxide 19 mmol/L (22-29); Chloride 110 mmol/L (98-107); Globulin 3.7 g/dL (1.3-4.6); Glomerular Filtration Rate 17.1 mL/min (90-130); Glucose 113 mg/dL (65-115); Osmolality Calculated 329 mOsm/kg (285-295); Sodium 144 mmol/L (136-145); Total Bilirubin 0.3 mg/dL (0.15-1.2); Total Protein 6.6 g/dL (6.6-8.7)
[2020-05-15 04:32] LABS: Blood Urea Nitrogen 96 mg/dL (6-20)
[2020-05-15 04:33] LABS: Potassium 6.1 mmol/L (3.5-5.1)
[2020-05-15 04:45] LABS: ABG PCO2 45.7 mmHg (35-45); ABG PH Result 7.27 (7.35-7.45); Arterial Blood Gas Hematocrit 40.2 % (42-52); Blood Gas Sample Type Arterial; HCO3 ABG 20.9 mmol/L (22-26); PO2 ABG 80.1 mmHg (80.0-100.0)
[2020-05-15 04:48] LABS: Blood Gas Sample Site Brachial, right; Oxygen Device VENT
[2020-05-15] MEDS: famotidine 20 mg/2 mL INJ IVP ×2 (05:54→16:49)
[2020-05-15] MEDS: calcium gluconate 0.1 gm/mL 10% SDV 10mL 1 GM IVP (06:27)
[2020-05-15] MEDS: FUROsemide 10 mg/mL SDV 4mL 40 MG IVP (06:28)
[2020-05-15] MEDS: dextrose 50% syringe 50 mL IVP (06:28)
[2020-05-15] MEDS: sodium polystyrene sulfonate 15 gm/60 mL Btl 30 GM PO (06:28)
[2020-05-15] MEDS: insulin regular-human 10 UNIT in SYRINGE 1 EACH IVP (06:40)
--- NOTE | 2020-05-15 06:44 | PM.PN ---
Subjective Subjective: Interval history: intubated, sedated, unable to obtain a ROS Medications: Reviewed: Yes Medication Review Details: Current Medications Acetaminophen (Acetaminophen 325 Mg Tablet) 325 mg PO Q6H PRN PRN Reason: fever Acetylcysteine (Acetylcysteine 200 Mg/Ml Sdv 4 Ml) 100 mg INHALATION Q6H.RESPIRATORY NATALIE Last Admin: 05/15/20 03:14 Dose: 100 mg Documented by: Albuterol/Ipratropium (Ipratropium-Albuterol 3 Ml Neb) 3 ml INHALATION Q6H.RESPIRATORY NATALIE Last Admin: 05/15/20 03:14 Dose: 3 ml Documented by: Budesonide (Budesonide 0.5 Mg/2 Ml Neb) 0.25 mg INHALATION BID.RESPIRATORY NATALIE Last Admin: 05/14/20 20:22 Dose: 0.25 mg Documented by: Enoxaparin Sodium (Enoxaparin 40 Mg/0.4 Ml Syringe) 40 mg SUBCUT Q24H NATALIE Famotidine (Famotidine 20 Mg/2 Ml Inj) 20 mg IVP Q12H NATALIE Last Admin: 05/15/20 05:54 Dose: 20 mg Documented by: Folic Acid (Folic Acid 1 Mg Tablet) 1 mg PO DAILY NATALIE Last Admin: 05/14/20 08:58 Dose: 1 mg Documented by: Fentanyl 1,000 mcg/ Sodium (Chloride) 100 mls @ 0 mls/hr IV .Q0M NATALIE; Protocol Last Titration: 05/15/20 04:24 Dose: 75 mcg/hr, 7.5 mls/hr Documented by: Piperacillin Sod/Tazobactam (Sod 3.375 gm/ Sodium Chloride) 50 mls @ 12.5 mls/hr IV Q8H NATALIE; Protocol Stop: 05/15/20 09:59 Last Admin: 05/15/20 02:42 Dose: 12.5 mls/hr Documented by: Propofol (Diprivan) 1,000 mg in 100 mls @ 0 mls/hr IV .Q0M NATALIE; Protocol Last Titration: 05/15/20 01:25 Dose: 0 mcg/kg/min, 0 mls/hr Documented by: Dexmedetomidine HCl 400 mcg/ (Sodium Chloride) 104 mls @ 0 mls/hr IV .Q0M NATALIE; Protocol Last Titration: 05/15/20 04:55 Dose: 0.7 mcg/kg/hr, 16.3 mls/hr Documented by: Sodium Bicarbonate 150 meq/ (Dextrose) 1,150 mls @ 100 mls/hr IV .[id number] [facility] Multivitamins Therapeutic (Multivitamin Therapeutic Tablet) 1 tab PO DAILY [facility] Last Admin: 05/14/20 08:58 Dose: 1 tab Documented by: Thiamine Mononitrate (Thiamine 100 Mg Tablet) 100 mg PO DAILY [facility] Last Admin: 05/14/20 08:57 Dose: 100 mg Documented by: Vitals/I&O/Wt Last Vital Signs Temp 99.3 F 05/15/20 06:00 Pulse 86 05/15/20 06:15 Resp 21 H 05/15/20 06:00 BP 148/71 05/15/20 06:00 Pulse Ox 94 05/15/20 06:00 05/14/20 05/14/20 05/15/20 14:59 22:59 06:59 Intake Total 420.15 / 420.15 291.077 / 711.227 234.193 / 945.420 Output Total 925 / 925 400 / 1325 1200 / 2525 Balance -504.85 / -504.85 -108.923 / -613.773 -965.807 / -1579.580 Physical Exam Narrative: EXAM NARRATIVE: sedated, off of pressers vent TV 600/PEEP 10/ RR 18/ Fio2=45% henet- nc/at neck supple lungs scattered crackles heart reg, no rub abd soft, nt, nd, +BS ext 1+ b/l edema neuro- sedated no rashes appreciated exam by RN, telehealth visit Urinary Catheter Management^: Ramirez: Cath Placed During This Visit: yes Reason for Continuing Indwelling Catheter: Accurate Measurement of Urinary Output in Critically Ill Patients Urinary Catheter Date of Insertion: 05/09/20 Urinary Catheter Time of Insertion: 20:34 Data : 05/15/20 03:21 05/15/20 03:21 Micro: Microbiology 05/14/20 04:15 Blood Culture - Preliminary Blood NEGATIVE TO DATE 05/14/20 04:15 Blood Culture - Preliminary Blood NEGATIVE TO DATE 05/09/20 17:48 Blood Culture - Final Blood NO GROWTH AFTER 5 DAYS 05/09/20 18:03 Blood Culture - Final Blood Coagulase negativ staphylococc 05/12/20 18:20 Sputum Culture - Preliminary Sputum - Endotracheal Tube Aspirate Yeast species A&P Additional A&P Information 1. XU - working dx is ATN -good uop -u/a 2+ blood, 25-40 rbc, multiple uric acvid and triple phos crystals -high ur na of 70 hep serologies and hiv neg will check mary, anca, anti-gbm -q if drug effect on kidneys -rising cr and k -start bicarb drip 2. hyperkalemia- from XU, also feeds -stop feeds -rx k medically- ca, d50, reg insulin, kayexalate -repeat chem 7 at 11 am -if no improvement, may need HD soon 3. acid/ base status- combined resp and met acidosis -adjust vent and bicarb drip 4. Vent dependent respiratory failure Vent settings and management per ICU team. 5. Sepsis Currently receiving Vanco and Zosyn. Goal Vanco trough < 19. 6. Alcohol and drug withdrawal -per hospitalist 7. hgb excellent 8. monitor phos Patient seen and examined via telemedicine, with the assistance of the bedside RN > 25 min spent in evaluation and mgmt of patient Attestations Medical Necessity Statement*: xu, VDRF, sepsis, hyperkalemia, met and resp acidosis Time Spent in Patient Care: Greater than 35 minutes Coding Level of Care Code Acute Automatic Data Processing Planner for [employer]
[2020-05-15] MEDS: sodium bicarbonate 150 MEQ in dextrose 5% 1,000 ML 100 MEQ IV ×2 (06:45→19:50)
[2020-05-15] MEDS: budesonide 0.5 mg/2 mL Neb 0.25 MG INHALATION ×2 (07:30→20:04)
[2020-05-15] MEDS: multivitamin therapeutic Tablet 1 TAB PO (08:11)
[2020-05-15] MEDS: enoxaparin 40 mg/0.4 mL Syringe SUBCUT (08:11)
[2020-05-15] MEDS: folic acid 1 mg Tablet PO (08:11)
[2020-05-15] MEDS: thiamine 100 mg Tablet PO (08:11)
--- NOTE | 2020-05-15 09:12 | PC.CHAP ---
Pastoral Care Encounter/Spiritual Assessment Type of Contact [] Declined cost accounting clerk visit [] Patient/Family/Request visit [] Outpatient visit [] Follow-up visit [] Physician referral [] Code/Alert [x] Routine visit [] Staff referral [] Actively dying [] Patient sleeping [] Family support [] [] Out of room [] Palliative care [] [] Receiving care in room [] Pre-surgical visit [] Trauma [] Long length of stay [x] ICU visit [x] Other:ventilator Relational/Emotional Strength [] Patient feels connected with others/family/visitors/staff [] Distress [] Loneliness/isolation [] Abandonment Spirituality of Patient [] Person of Breana [] Attends Holiness of their Breana [] Believes in Prayer [] Reads Bible or Zoroastrianism materials [] There are Spiritual issues to be addressed Platform Material Handler Manager Interventions [x] Prayer [] Active listening [] Non-anxious presence [] Spiritual/emotional support [] Crisis/trauma care [] Spiritual counseling [] Bereavement support [] Provided bereavement packet [] Provided Bible/devotional materials [] Provided toy/stuffed animal, coloring book to patient or family member [] Provided Communion [] Anointing/[place] [] Salvation [x] Completed spiritual assessment [] Other: Impact on Illness or Injury [] Angry [] Fearful [] Anxious [] Often cries [] Exhaustion [] Unable to work [] Unable to attend gnosticist [] Unable to walk/stand [] Unable to read [] Unable to drive [] Unable to eat/drink [] Unable to sleep [] Unable to be with family [] Patient intubated [] Other: Summary Time spent with patient
[2020-05-15 11:56] LABS: Alanine Aminotransferase 16 U/L (0-41); Albumin Level 2.6 g/dL (3.5-5.2); Alkaline Phosphatase 99 IU/L (40-130); Anion Gap 18.3 (5-19); Aspartate Amino Transferase 19 U/L (0-40); Calcium 8.8 mg/dL (8.5-10.5); Carbon Dioxide 19 mmol/L (22-29); Chloride 108 mmol/L (98-107); Globulin 4.2 g/dL (1.3-4.6); Glomerular Filtration Rate 18.9 mL/min (90-130); Glucose 156 mg/dL (65-115); Osmolality Calculated 322 mOsm/kg (285-295); Potassium 5.3 mmol/L (3.5-5.1); Sodium 140 mmol/L (136-145); Total Bilirubin 0.4 mg/dL (0.15-1.2); Total Protein 6.8 g/dL (6.6-8.7)
[2020-05-15 12:02] LABS: Blood Urea Nitrogen 93 mg/dL (6-20)
[2020-05-15] MEDS: midazolam 1 mg/mL INJ 2 mL 2 MG IVP (14:45)
[2020-05-15] MEDS: dexmedetomidine 400 MCG in sodium chloride 0.9% (100 ml) 100 ML 28 MCG IV ×3 (15:43→23:46)
--- NOTE | 2020-05-15 19:00 | PM.PN ---
Subjective Subjective: Interval history: Failed extubation attempt in the morning as became increasingly agitated and tachypneic, remained on fentanyl and precedex. Moves extremities in response to pain and touch, however does not follow commands. Cr stable at 3.4, good urine output Medications: Reviewed: Yes Vitals/I&O/Wt Last Vital Signs Temp 99 F 05/16/20 04:00 Pulse 87 05/16/20 06:00 Resp 18 05/16/20 06:08 BP 164/82 05/16/20 06:00 Pulse Ox 93 05/16/20 06:00 05/15/20 05/15/20 05/16/20 14:59 22:59 06:59 Intake Total 257.353 / 458.280 4154.017 / 1455.701 7296.667 / 2873.037 Output Total 1450 / 1450 1900 / 3350 925 / 4275 Balance -1192.647 / -1192.647 -528.983 / -1721.630 319.667 / -1401.963 Physical Exam Narrative: EXAM NARRATIVE: GEN: Intubated, sedated, moves extremities in respons eto touch CVS: S1S2 N RS: CTA B/L anteriorly Abd: Soft, nt/nd , bs+ DISPLAY TRIMMER: unable to assess EXt: no pitting edema Urinary Catheter Management^: Ramirez: Cath Placed During This Visit: yes Reason for Continuing Indwelling Catheter: Accurate Measurement of Urinary Output in Critically Ill Patients Urinary Catheter Date of Insertion: 05/09/20 Urinary Catheter Time of Insertion: 20:34 Data : 05/16/20 04:26 05/16/20 04:26 Micro: Microbiology 05/15/20 19:56 Blood Culture - Preliminary Blood SPECIMEN COLLECTED 05/15/20 19:55 Blood Culture - Preliminary Blood SPECIMEN COLLECTED 05/12/20 18:20 Sputum Culture - Preliminary Sputum - Endotracheal Tube Aspirate Yeast species 05/14/20 17:18 Gram Stain - Final Sputum - Endotracheal Wash 05/14/20 04:15 Blood Culture - Preliminary Blood NEGATIVE TO DATE 05/14/20 04:15 Blood Culture - Preliminary Blood NEGATIVE TO DATE A&P Assessment and plan (1) Acute on chronic respiratory failure with hypoxia and hypercapnia: Acute on chronic hypoxic hypercapnic respiratory failure secondary to COPD exacerbation, secondary to pneumonia. CT chest 05/14 with B/L pleural effusion, atelactasis Unable to obtain CTA chest due to XU, mild elevated d dimer, LE duplex negative for VTE, less likely PE on appropriate ppx Rapid Covid Ag negative Nirali reports patient has a h/o COPD, is supposed to be on Bipap and home 02, however is non compliant with the same, only uses prn inhalers appreciate pulm/critical care consult to assist with extubation ttempts/vent management Sedation changed from versed/fentanyl/propofol to fentanyl/precedex, failed weaning trial this morning Status: Acute (2) Sepsis: Sepsis, likely secondary pneumonia s/p CTX 05/09-05/10, Zosyn 05/10-05/15, azithromycin 05/09-05/14, vancomycin 05/12 overall received 7 days of appropriate therapy , discontinued abx now No leukocytosis CT chest without empyema or complicated effusions sputum cx with few yeast , no bacterial growth s/p bedside bronch on 05/14, mucus plugging cleared. T max 100.8F on 05/15 evening, check blood cx, monitor off antimicrobials Status: Acute (3) Pneumonia: s/p appropriate rx as above Status: Acute (4) COPD exacerbation: Status: Acute (5) Alcohol abuse: this is now excluded, h/o polysubstance abuse, no alcohol Status: Acute (6) XU (acute kidney injury): Likely prerenal secondary to dehydration secondary to alcohol abuse. Baseline serum creatinine 0.9. echo grossly normal appreciate nephrology consult Status: Acute (7) Polysubstance abuse: Status: Acute (8) Asthma: Status: Acute Attestations Medical Necessity Statement*: ongoing mechanical ventilation, resp failure Coding Level of Care Code Acute Staff Analyst for [facility] Fwd Diagnoses Acute on chronic respiratory failure with hypoxia and hypercapnia J96.21; J96.22 Sepsis A41.9 Pneumonia J18.9 COPD exacerbation J44.1 Alcohol abuse F10.10 XU (acute kidney injury) N17.9 Polysubstance abuse F19.10 Asthma J45.909
[2020-05-16] VITALS (57 sets, daily range): BP systolic 151–206; BP diastolic 76–114; PULSE 79–100; RESP 14–24; TEMP 37.2–38.7; O2SAT 91–94
[2020-05-16] MEDS: ipratropium-albuterol 3 mL Neb INHALATION ×4 (03:32→20:01)
[2020-05-16] MEDS: acetylcysteine 200 mg/mL SDV 4 mL 100 MG INHALATION (03:32)
[2020-05-16] MEDS: dexmedetomidine 400 MCG in sodium chloride 0.9% (100 ml) 100 ML 28 MCG IV ×2 (03:35→07:36)
[2020-05-16] MEDS: sodium bicarbonate 150 MEQ in dextrose 5% 1,000 ML 100 MEQ IV (05:12)
[2020-05-16 05:13] LABS: Basophils % 0.4 %; Eosinophils # 0.1 10^3/uL (0.0-0.8); Eosinophils % 1.3 %; Hematocrit 39.2 % (42.0-52.0); Hemoglobin 12.2 g/dL (11.7-16.6); Lymphocytes # 0.9 10^3/uL (0.8-4.8); Lymphocytes % 12.2 %; Mean Corpuscular HGB Conc 31.1 g/dL (30.0-36.0); Mean Corpuscular Hemoglobin 28.2 pg (28.0-34.0); Mean Corpuscular Volume 90.7 fL (80-94); Mean Platelet Volume 10.4 fL (7.4-10.4); Monocytes # 0.7 10^3/uL (0.2-0.9); Monocytes % 9.8 %; Neutrophils # 5.56 10^3/uL (1.8-7.7); Neutrophils % 73.8 %; Nucleated Red Blood Cells % 0 %; Platelet Count 194 10^3/cmm (130-400); Red Blood Count 4.32 10^6/uL (4.1-5.3); Red Cell Distribution Width 14.6 % (12.1-15.1); White Blood Count 7.5 10^3/uL (4.0-10.0)
[2020-05-16] MEDS: famotidine 20 mg/2 mL INJ IVP ×2 (05:15→17:43)
[2020-05-16 05:34] LABS: Alanine Aminotransferase 13 U/L (0-41); Albumin Level 2.8 g/dL (3.5-5.2); Alkaline Phosphatase 82 IU/L (40-130); Anion Gap 13.7 (5-19); Aspartate Amino Transferase 16 U/L (0-40); Calcium 8.6 mg/dL (8.5-10.5); Carbon Dioxide 30 mmol/L (22-29); Chloride 109 mmol/L (98-107); Globulin 3.5 g/dL (1.3-4.6); Glomerular Filtration Rate 18.9 mL/min (90-130); Glucose 119 mg/dL (65-115); Magnesium 2.5 mg/dL (1.7-2.3); Osmolality Calculated 334 mOsm/kg (285-295); Phosphorus 5.4 mg/dL (2.5-4.5); Potassium 4.7 mmol/L (3.5-5.1); Sodium 148 mmol/L (136-145); Total Bilirubin 0.3 mg/dL (0.15-1.2); Total Protein 6.3 g/dL (6.6-8.7)
[2020-05-16 05:59] LABS: Calcium 8.3 mg/dL (8.5-10.5); Parathyroid Hormone 71.4 pg/mL (15-65)
[2020-05-16 06:02] LABS: Blood Urea Nitrogen 87 mg/dL (6-20)
--- NOTE | 2020-05-16 07:02 | CTR_ITS ---
PROCEDURE INFORMATION: Exam: CT Head Without Contrast Exam date and time: 05/16/2020 4:21 PM Age: 54 years old Clinical indication: Altered mental status/memory loss TECHNIQUE: Imaging protocol: Computed tomography of the head without contrast. Radiation optimization: All CT scans at this facility use at least one of these dose optimization techniques: automated exposure control; mA and/or kV adjustment per patient size (includes targeted exams where dose is matched to clinical indication); or iterative reconstruction. COMPARISON: No relevant prior studies available. RADIATION DOSE METRICS: Total DLP (mGy-cm): 918.34 FINDINGS: Brain: Mild diffuse cerebral cortical atrophy. No hemorrhage. Unremarkable white matter. No mass effect. Cerebral ventricles: No ventriculomegaly. Bones/joints: Unremarkable. No acute fracture. Paranasal sinuses: Scattered mucosal thickening of ethmoid air cells and sphenoid sinuses. Mastoid air cells: Visualized mastoid air cells are well aerated. Soft tissues: Unremarkable. CT/CT head wo con* [id number] IMPRESSION: Negative for acute intracranial abnormality. Radiation Dose CTDIVOL = (mGy): DLP = 918.34 (mGy-cm)
--- NOTE | 2020-05-16 07:11 | PM.PN ---
Subjective Subjective: Interval history: Na 148, hco3 30, HTN through last evening, no gross imrpovement in mentation with change in sedation regimen, no leukocytosis, t 99F this am , cr stable Medications: Reviewed: Yes Vitals/I&O/Wt Last Vital Signs Temp 99 F 05/16/20 04:00 Pulse 87 05/16/20 06:00 Resp 18 05/16/20 06:08 BP 164/82 05/16/20 06:00 Pulse Ox 93 05/16/20 06:00 05/15/20 05/16/20 05/16/20 22:59 06:59 14:59 Intake Total 1371.017 / 9274.839 2247.667 / 2873.037 Output Total 1900 / 3350 925 / 4275 Balance -528.983 / -1721.630 319.667 / -1401.963 Physical Exam Narrative: EXAM NARRATIVE: GEN: Intubated, sedated, moves extremities in respons eto touch CVS: S1S2 N RS: CTA B/L anteriorly Abd: Soft, nt/nd , bs+ ADVERTISING STATISTICAL CLERK: unable to assess EXt: no pitting edema Urinary Catheter Management^: Ramirez: Cath Placed During This Visit: yes Reason for Continuing Indwelling Catheter: Accurate Measurement of Urinary Output in Critically Ill Patients Urinary Catheter Date of Insertion: 05/09/20 Urinary Catheter Time of Insertion: 20:34 Data : 05/16/20 04:26 05/16/20 04:26 Micro: Microbiology 05/14/20 15:57 Urine Culture - Preliminary Urine,Clean Catch 05/15/20 19:56 Blood Culture - Preliminary Blood SPECIMEN COLLECTED 05/15/20 19:55 Blood Culture - Preliminary Blood SPECIMEN COLLECTED 05/12/20 18:20 Sputum Culture - Preliminary Sputum - Endotracheal Tube Aspirate Yeast species 05/14/20 17:18 Gram Stain - Final Sputum - Endotracheal Wash 05/14/20 04:15 Blood Culture - Preliminary Blood NEGATIVE TO DATE 05/14/20 04:15 Blood Culture - Preliminary Blood NEGATIVE TO DATE A&P Assessment and plan (1) Acute on chronic respiratory failure with hypoxia and hypercapnia: Acute on chronic hypoxic hypercapnic respiratory failure secondary to COPD exacerbation, secondary to pneumonia. CT chest 05/14 with B/L pleural effusion, atelactasis Unable to obtain CTA chest due to XU, mild elevated d dimer, LE duplex negative for VTE, less likely PE on appropriate ppx Rapid Covid Ag negative Nirali reports patient has a h/o COPD, is supposed to be on Bipap and home 02, however is non compliant with the same, only uses prn inhalers appreciate pulm/critical care consult to assist with extubation ttempts/vent management Sedation changed from versed/fentanyl/propofol to fentanyl/precedex, failed weaning trial 05/15, attempt again today Status: Acute (2) Sepsis: Sepsis, likely secondary pneumonia s/p CTX 05/09-05/10, Zosyn 05/10-05/15, azithromycin 05/09-05/14, vancomycin 05/12 overall received 7 days of appropriate therapy , discontinued abx now No leukocytosis CT chest without empyema or complicated effusions sputum cx with few yeast , no bacterial growth s/p bedside bronch on 05/14, mucus plugging cleared. T max 100.8F on 05/15 evening, check blood cx, monitor off antimicrobials for now Status: Acute (3) Pneumonia: s/p appropriate rx as above Status: Acute (4) COPD exacerbation: Status: Acute (5) Alcohol abuse: this is now excluded, h/o polysubstance abuse, no alcohol Status: Acute (6) XU (acute kidney injury): Likely prerenal secondary to dehydration secondary to alcohol abuse. Baseline serum creatinine 0.9. echo grossly normal appreciate nephrology consult Status: Acute (7) Polysubstance abuse: Status: Acute (8) Asthma: Status: Acute Additional A&P Information Discontinue sodium bicarbonate infusion as Na at 148 now, bicarb 30 DVT ppx: lovenox Full code Updates discussed with daughter Attestations Medical Necessity Statement*: respiratory failure, difficult ventilator weaning Coding Level of Care Code Acute Marketing Administrative Assistant for [facility] Fwd Diagnoses Acute on chronic respiratory failure with hypoxia and hypercapnia J96.21; J96.22 Sepsis A41.9 Pneumonia J18.9 COPD exacerbation J44.1 Alcohol abuse F10.10 XU (acute kidney injury) N17.9 Polysubstance abuse F19.10 Asthma J45.909
--- NOTE | 2020-05-16 07:24 | P.PN_ITS ---
Subjective Subjective: Interval history: Patient was seen and examined this morning. Spontaneously opens his eyes and moves all his extremities however is not following any commands. Responds to painful stimulus. I have put the patient on pressure support ventilation. He is on PSV of 15/8 FiO2 of 40% and minute ventilation is between 6 to 8 L with good tidal volumes. The patient received bicarb drip yesterday for hyperkalemia and metabolic acidosis. The acidosis is resolved. His serum bicarbonate level is 30. The patient is having post ATN diuresis. His serum sodium is up to 148. Medications: Reviewed: Yes Vitals/I&O/Wt Last Vital Signs Temp 99 F 05/16/20 04:00 Pulse 87 05/16/20 06:00 Resp 18 05/16/20 06:08 BP 164/82 05/16/20 06:00 Pulse Ox 93 05/16/20 06:00 05/15/20 05/16/20 05/16/20 22:59 06:59 14:59 Intake Total 1371.017 / 2992.862 0446.667 / 2873.037 Output Total 1900 / 3350 925 / 4275 Balance -528.983 / -1721.630 319.667 / -1401.963 Physical Exam Narrative: EXAM NARRATIVE: General: The patient is intubated and sedated, nonpurposeful movement, not following any commands HEENT: Bilateral miopic pupil Neck: No JVD Respiratory: Auscultation: No significant crackles, wheezing or rhonchi Cardiovascular: Regular rate and rhythm, S1-S2 present, no murmur, no peripheral edema. Abdomen: Soft, nondistended, positive bowel sound Skin: No rash, track conti in bilateral upper extremities Neuro: The patient is not following commands. He is spontaneously moving all extremities Urinary Catheter Management^: Ramirez: Cath Placed During This Visit: yes Reason for Continuing Indwelling Catheter: Accurate Measurement of Urinary Output in Critically Ill Patients Urinary Catheter Date of Insertion: 05/09/20 Urinary Catheter Time of Insertion: 20:34 Data : 05/16/20 04:26 05/16/20 04:26 Micro: Microbiology 05/14/20 15:57 Urine Culture - Preliminary Urine,Clean Catch 05/15/20 19:56 Blood Culture - Preliminary Blood SPECIMEN COLLECTED 05/15/20 19:55 Blood Culture - Preliminary Blood SPECIMEN COLLECTED 05/12/20 18:20 Sputum Culture - Preliminary Sputum - Endotracheal Tube Aspirate Yeast species 05/14/20 17:18 Gram Stain - Final Sputum - Endotracheal Wash 05/14/20 04:15 Blood Culture - Preliminary Blood NEGATIVE TO DATE 05/14/20 04:15 Blood Culture - Preliminary Blood NEGATIVE TO DATE Attestation for Other Data: I personally reviewed and interpreted the following: Other data: I reviewed the patient's laboratory, microbiologic and radiologic data. His white count is normal. The bronchoalveolar lavage culture did not grow any organism. The patient has developed hyponatremia likely secondary to post ATN diuresis and free water deficit. A&P Assessment and plan (1) Pneumonia: The patient has received a 7-day course of antibiotic. His bronchoalveolar lavage culture was negative. Currently he is off of antibiotics. Status: Acute (2) COPD (chronic obstructive pulmonary disease): Patient will receive DuoNeb and Pulmicort nebulization. Currently he is on pressure support ventilation 15/8 with FiO2 of 40%. We will try to come down on the fentanyl while providing support with the Precedex. Status: Acute (3) Polysubstance abuse: Patient is a known polysubstance abuser. His urine tox screen was positive for methamphetamine and marijuana when he presented to the hospital Status: Acute (4) XU (acute kidney injury): ATN. Currently the patient is in diuretic phase of ATN. Yesterday, he had hyperkalemia which is currently resolved with the bicarb drip. Patient has however developed hyponatremia likely secondary to free water deficit from the post ATN diuresis. I went to restart the patient on Nepro. Free water flush 250 cc every 6 hours for now. May need to go up to compensate for the diuresis. Status: Acute (5) Hypertension: We will start the patient on amlodipine. Status: Acute Attestations Medical Necessity Statement*: Will defer to the primary team Coding Level of Care Code Acute Welding Robot Operator for [facility] Diagnoses Pneumonia J18.9 COPD (chronic obstructive pulmonary disease) J44.9 Polysubstance abuse F19.10 XU (acute kidney injury) N17.9 Hypertension I10
[2020-05-16] MEDS: thiamine 100 mg Tablet PO (08:04)
[2020-05-16] MEDS: folic acid 1 mg Tablet PO (08:04)
[2020-05-16] MEDS: enoxaparin 40 mg/0.4 mL Syringe SUBCUT (08:05)
[2020-05-16] MEDS: amlodipine 10 mg Tablet PO (08:05)
[2020-05-16] MEDS: multivitamin therapeutic Tablet 1 TAB PO (08:05)
[2020-05-16] MEDS: budesonide 0.5 mg/2 mL Neb 0.25 MG INHALATION ×2 (08:06→20:01)
[2020-05-16 09:53] LABS: Anti-streptolysin O <50 IU/mL (<200)
[2020-05-16] MEDS: labetalol 5 mg/mL SDV 20mL 10 MG IVP (10:16)
[2020-05-16] MEDS: LORazepam 2 mg/mL INJ 1 mL IVP ×2 (11:13→16:44)
[2020-05-16] MEDS: dexmedetomidine 400 MCG in sodium chloride 0.9% (100 ml) 100 ML 35 MCG IV (11:34)
[2020-05-16] MEDS: hyDRALAzine 10 mg Tablet PO (13:02)
[2020-05-16 14:03] LABS: Anti-Nuclear Antibody Screen NEGATIVE (NEGATIVE)
[2020-05-16] MEDS: acetaminophen 325 mg Tablet PO ×2 (15:20→18:03)
--- NOTE | 2020-05-16 16:26 | PM.PN ---
Subjective Subjective: Interval history: Remains heavily sedated to maintain ability to vent him. No new issues since yesterday he remains otherwise relatively stable. Bicarb gtt stopped Medications: Reviewed: Yes Medication Review Details: Current Medications Acetaminophen (Acetaminophen 325 Mg Tablet) 325 mg PO Q6H PRN PRN Reason: fever Acetylcysteine (Acetylcysteine 200 Mg/Ml Sdv 4 Ml) 100 mg INHALATION Q6H.RESPIRATORY NATALIE Last Admin: 05/15/20 03:14 Dose: 100 mg Documented by: Albuterol/Ipratropium (Ipratropium-Albuterol 3 Ml Neb) 3 ml INHALATION Q6H.RESPIRATORY NATALIE Last Admin: 05/15/20 03:14 Dose: 3 ml Documented by: Budesonide (Budesonide 0.5 Mg/2 Ml Neb) 0.25 mg INHALATION BID.RESPIRATORY NATALIE Last Admin: 05/14/20 20:22 Dose: 0.25 mg Documented by: Enoxaparin Sodium (Enoxaparin 40 Mg/0.4 Ml Syringe) 40 mg SUBCUT Q24H NATALIE Famotidine (Famotidine 20 Mg/2 Ml Inj) 20 mg IVP Q12H NATALIE Last Admin: 05/15/20 05:54 Dose: 20 mg Documented by: Folic Acid (Folic Acid 1 Mg Tablet) 1 mg PO DAILY NATALIE Last Admin: 05/14/20 08:58 Dose: 1 mg Documented by: Fentanyl 1,000 mcg/ Sodium (Chloride) 100 mls @ 0 mls/hr IV .Q0M NATALIE; Protocol Last Titration: 05/15/20 04:24 Dose: 75 mcg/hr, 7.5 mls/hr Documented by: Piperacillin Sod/Tazobactam (Sod 3.375 gm/ Sodium Chloride) 50 mls @ 12.5 mls/hr IV Q8H NATALIE; Protocol Stop: 05/15/20 09:59 Last Admin: 05/15/20 02:42 Dose: 12.5 mls/hr Documented by: Propofol (Diprivan) 1,000 mg in 100 mls @ 0 mls/hr IV .Q0M NATALIE; Protocol Last Titration: 05/15/20 01:25 Dose: 0 mcg/kg/min, 0 mls/hr Documented by: Dexmedetomidine HCl 400 mcg/ (Sodium Chloride) 104 mls @ 0 mls/hr IV .Q0M NATALIE; Protocol Last Titration: 05/15/20 04:55 Dose: 0.7 mcg/kg/hr, 16.3 mls/hr Documented by: Sodium Bicarbonate 150 meq/ (Dextrose) 1,150 mls @ 100 mls/hr IV .[id number] [facility] Multivitamins Therapeutic (Multivitamin Therapeutic Tablet) 1 tab PO DAILY NATALIE Last Admin: 05/14/20 08:58 Dose: 1 tab Documented by: Thiamine Mononitrate (Thiamine 100 Mg Tablet) 100 mg PO DAILY NATALIE Last Admin: 05/14/20 08:57 Dose: 100 mg Documented by: Vitals/I&O/Wt Last Vital Signs Temp 100.7 F H 05/16/20 11:00 Pulse 83 05/16/20 14:36 Resp 18 05/16/20 15:15 BP 194/90 05/16/20 13:00 Pulse Ox 92 05/16/20 14:30 05/16/20 05/16/20 05/16/20 06:59 14:59 22:59 Intake Total 1244.667 / 2873.037 548.000 / 548.000 Output Total 925 / 4275 700 / 700 Balance 319.667 / -1401.963 -152.000 / -152.000 Physical Exam Narrative: EXAM NARRATIVE: HEENT: Wet mucosa, no jvp, non icteric Lungs: Bilaterally clear without discernible wheeze, rales in all lung zones CVS: S1 S2, no murmurs Abdo: Soft, BS ok Ext 4: Minimal edema, peripheral perfusion with no cyanosis Neurological: Sedated Urinary Catheter Management^: Ramirez: Cath Placed During This Visit: yes Reason for Continuing Indwelling Catheter: Accurate Measurement of Urinary Output in Critically Ill Patients Urinary Catheter Date of Insertion: 05/09/20 Urinary Catheter Time of Insertion: 20:34 Data : 05/16/20 04:26 05/16/20 04:26 Micro: Microbiology 05/09/20 15:57 Legionella Urinary Antigen - Final Urine,Clean Catch Bacterial Antigens - Final 05/12/20 18:20 Sputum Culture - Final Sputum - Endotracheal Tube Aspirate Johnna albicans 05/14/20 17:18 Gram Stain - Final Sputum - Endotracheal Wash Sputum Culture - Preliminary 05/14/20 15:57 Urine Culture - Preliminary Urine,Clean Catch 05/15/20 19:56 Blood Culture - Preliminary Blood SPECIMEN COLLECTED 05/15/20 19:55 Blood Culture - Preliminary Blood SPECIMEN COLLECTED A&P Additional A&P Information 1. XU Picture is most consistent with acute tubular injury, from the precipitous drop in blood pressure following hospitalization from 160 systolic to 95 systolic in the setting of hypoxia. Creatinine has come down to 3.4 and remains stable, robust urine output without diuretics Strict ins and outs Avoid usual nephrotoxic agents Dose medications for GFR less than 30. 2. Vent dependent respiratory failure Vent settings and management per ICU team. 3. Lytes Alkalosis now given bicarb gtt, now held Lytes otherwise well balanced 4. Sepsis Currently receiving Vanco and Zosyn. Goal Vanco trough < 19. 5. Alcohol and drug withdrawal Complicating his care; CIWA protocol inc thiamine and sedatives Will need full detox and rehab 6. Hypertension Will add scheduled metoprolol 50mg po bid Jacob Castellanos MD Nephrology [phone] Patient seen and examined via telemedicine, with the assistance of the bedside RN > 25 min spent in evaluation and mgmt of patient Attestations Medical Necessity Statement*: eval for XU Coding Level of Care Code Acute Gear Milling Machine Set Up Operator for [facility]
--- NOTE | 2020-05-16 19:12 | PC.NURSE ---
Dr Girard rounded early in the morning and placed patient on a SBT, patient respiratory rate climbed into the 30s and 40s and he became very restless, patient failed SBT, Dr Denson gave a verbal order to increase precidex to 1.5 and add lorazapam 2mg every 6 hours at 1055, informed her of patients rising temp of 100.7 and then told her of temp 101.7 at [address] at 1530 tolerated trip well, back in room at 1600, patient left on portable vent with 2 RNs and an RT
[2020-05-16] MEDS: metoprolol tartrate 50 mg Tablet PO (20:41)
[2020-05-16] MEDS: piperacillin-tazobactam 3.375 GM in sodium chloride 0.9% (plus) 50 ML IV (20:41)
[2020-05-17] VITALS (32 sets, daily range): BP systolic 124–179; BP diastolic 81–107; PULSE 78–98; RESP 18–24; TEMP 37.2–38.1; O2SAT 92–94
[2020-05-17] MEDS: ipratropium-albuterol 3 mL Neb INHALATION ×3 (02:09→14:09)
[2020-05-17] MEDS: acetaminophen 325 mg Tablet 650 MG PO (03:28)
[2020-05-17] MEDS: LORazepam 2 mg/mL INJ 1 mL IVP ×2 (03:29→10:27)
[2020-05-17] MEDS: hyDRALAzine 10 mg Tablet PO (03:29)
--- NOTE | 2020-05-17 04:00 | XR_ITS ---
WS: [id number] Exam: XR chest 1V portable [id number] Date/Time of Exam: 05/17/2020 5:08 AM Reason For Exam: tube positioing, pneumonia Comparison 05/12/2020. ET tube is in place ending about 7 cm above the lance in good position. An enteric tube extends belo w the diaphragm of the tip is not visible. The heart is not enlarged for technique. Increasing infilt rate in the right basal area since prior study. Unchanged left basilar opacity that may represent ple ural effusion and atelectasis. XR/XR chest 1V portable [id number] IMPRESSION: 1. Increasing right basal infiltrate since prior study. 2. Unchanged left basilar opacity that probably represents pleural effusion wit h some compressive atelectasis of the left lower lobe. 3. ET tube and enteric tube in satisfactory position.
[2020-05-17 04:39] LABS: Basophils # 0.1 10^3/uL (0.0-0.1); Basophils % 0.6 %; Eosinophils # 0.2 10^3/uL (0.0-0.8); Eosinophils % 2.7 %; Hematocrit 41.6 % (42.0-52.0); Hemoglobin 12.5 g/dL (11.7-16.6); Lymphocytes # 1.1 10^3/uL (0.8-4.8); Lymphocytes % 13.3 %; Mean Corpuscular Hemoglobin 27.8 pg (28.0-34.0); Mean Corpuscular Volume 92.4 fL (80-94); Mean Platelet Volume 10.6 fL (7.4-10.4); Monocytes # 0.9 10^3/uL (0.2-0.9); Neutrophils # 5.71 10^3/uL (1.8-7.7); Neutrophils % 69.6 %; Nucleated Red Blood Cells % 0 %; Platelet Count 219 10^3/cmm (130-400); Red Cell Distribution Width 14.6 % (12.1-15.1); White Blood Count 8.2 10^3/uL (4.0-10.0)
[2020-05-17 04:54] LABS: ABG PCO2 46.5 mmHg (35-45); ABG PH Result 7.45 (7.35-7.45); Alveolar-Arterial Oxygen Gradi 21.2 mmHg (5-10); Base Excess ABG 6.8 mmol/L (-2.0-2.0); Blood Gas Allen Test Pos; Blood Gas Operator Identificat JB; Blood Gas Sample Site Radial, right; Blood Gas Sample Type Arterial; Carboxyhemoglobin 0.9 %THgb (0.4-20.1); HCO3 ABG 31.9 mmol/L (22-26); HGB O2 Sat 91.5 % (95-100); Ionized Calcium Level - ABG 1.1 mmol/L (1.1-1.4); Methemoglobin 0.9 % (0.4-1.5); Oxygen Device VENT; Oxygen Saturation ABG 93.1; PO2 ABG 65.9 mmHg (80.0-100.0); Potassium Level - ABG 5.1 mmol/L (3.5-5.0); Total Hemoglobin 13.4 g/dL (14-18)
[2020-05-17] MEDS: piperacillin-tazobactam 3.375 GM in sodium chloride 0.9% (plus) 50 ML IV ×2 (04:54→11:59)
[2020-05-17] MEDS: famotidine 20 mg/2 mL INJ IVP (04:54)
[2020-05-17 05:03] LABS: Procalcitonin 0.24 ng/mL (0-0.5)
[2020-05-17 05:16] LABS: Alanine Aminotransferase 19 U/L (0-41); Albumin Level 2.9 g/dL (3.5-5.2); Alkaline Phosphatase 81 IU/L (40-130); Anion Gap 18.1 (5-19); Aspartate Amino Transferase 40 U/L (0-40); Calcium 8.9 mg/dL (8.5-10.5); Carbon Dioxide 28 mmol/L (22-29); Chloride 111 mmol/L (98-107); Globulin 3.8 g/dL (1.3-4.6); Glucose 94 mg/dL (65-115); Magnesium 2.4 mg/dL (1.7-2.3); Osmolality Calculated 339 mOsm/kg (285-295); Phosphorus 4.5 mg/dL (2.5-4.5); Potassium 5.1 mmol/L (3.5-5.1); Sodium 152 mmol/L (136-145); Total Bilirubin 0.5 mg/dL (0.15-1.2); Total Protein 6.7 g/dL (6.6-8.7)
[2020-05-17 05:27] LABS: Blood Urea Nitrogen 84 mg/dL (6-20)
[2020-05-17] MEDS: budesonide 0.5 mg/2 mL Neb 0.25 MG INHALATION (08:28)
[2020-05-17] MEDS: metoprolol tartrate 50 mg Tablet PO (08:34)
[2020-05-17] MEDS: amlodipine 10 mg Tablet PO (08:34)
[2020-05-17] MEDS: folic acid 1 mg Tablet PO (08:34)
[2020-05-17] MEDS: enoxaparin 40 mg/0.4 mL Syringe SUBCUT (08:35)
[2020-05-17] MEDS: thiamine 100 mg Tablet PO (08:35)
[2020-05-17] MEDS: multivitamin therapeutic Tablet 1 TAB PO (08:35)
--- NOTE | 2020-05-17 10:12 | PC.CHAP ---
Pastoral Care Encounter/Spiritual Assessment Type of Contact [] Declined veterans service officer visit [] Patient/Family/Request visit [] Outpatient visit [] Follow-up visit [] Physician referral [] Code/Alert [x] Routine visit [] Staff referral [] Actively dying [] Patient sleeping [] Family support [] [] Out of room [] Palliative care [] [] Receiving care in room [] Pre-surgical visit [] Trauma [] Long length of stay [x] ICU visit [x] Other: still on ventilator Relational/Emotional Strength [] Patient feels connected with others/family/visitors/staff [] Distress [] Loneliness/isolation [] Abandonment Spirituality of Patient [] Person of Breana [] Attends Holiness of their Breana [] Believes in Prayer [] Reads Bible or Confucianism materials [] There are Spiritual issues to be addressed Office Support Specialist Interventions [x] Prayer [] Active listening [] Non-anxious presence [] Spiritual/emotional support [] Crisis/trauma care [] Spiritual counseling [] Bereavement support [] Provided bereavement packet [] Provided Bible/devotional materials [] Provided toy/stuffed animal, coloring book to patient or family member [] Provided Communion [] Anointing/[place] [] Salvation [x] Completed spiritual assessment [] Other: Impact on Illness or Injury [] Angry [] Fearful [] Anxious [] Often cries [] Exhaustion [] Unable to work [] Unable to attend faith [] Unable to walk/stand [] Unable to read [] Unable to drive [] Unable to eat/drink [] Unable to sleep [] Unable to be with family [] Patient intubated [] Other: Summary Time spent with patient
--- NOTE | 2020-05-17 11:44 | PM.DCS ---
Discharge Providers Date of Admission: 05/09/20 19:46 Date of Discharge: May 17, 2020 Attending Provider at Admission: Jennie Ramírez MD Attending Provider at Discharge: Ana Denson MD Primary Care Provider: Gerry Calixto MD Diagnoses at Discharge Discharge Diagnosis (1) Acute on chronic respiratory failure with hypoxia and hypercapnia: Status: Acute (2) Sepsis: Status: Acute (3) Pneumonia: Status: Acute (4) COPD exacerbation: Status: Acute (5) Alcohol abuse: Status: Acute (6) XU (acute kidney injury): Status: Acute (7) Polysubstance abuse: Status: Acute (8) Asthma: Status: Acute Reason for Visit Reason for Visit: SOB/ COUGH Hospital Course Hospital Course 54 male with a past medical history of polysubstance abuse, oxygen dependent COPD, noncompliant with BiPAP who [place] [facility] [place] in [place] distress. Initial ABG revealed hypoxia and hypercapnic respiratory failure for which she was eventually intubated in the ER. Urine tox screen tested positive for marijuana and methamphetamines. Hyperkalemia was present on initial labs and is subsequently subsided. Received treatment initially with methylprednisolone, inhaled DuoNebs. Suspicion for pneumonia for which she received broad-spectrum antibiotics initially with ceftriaxone and azithromycin then changed to piperacillin tazobactam and vancomycin. He received 7 days of this regimen. CT of the chest was performed on May 14 which showed bilateral pleural effusion left greater than right. Was also noted some atelectasis in the left lower lobe with adjacent pleural effusion. Blood culture from May 09 at 1 1 for coag negative staph, likely to be a contaminant. BAL cultures have not shown growth of any bacterial organisms. Bronchoscopy as the ICU on May 14 during which erythema was noted throughout bilateral airways left greater than right. Thick pus looking secretion was noted also in the bilateral airways predominantly on the left side with occlusion of the left lower lobe bronchus. Mucous plug was removed. A BAL was obtained from the anterior medial segment of the left lower lobe. Culture from this remains with no growth to date. Hospital course has been complicated by development of acute kidney injury with creatinine peaking at 3.4. Currently this is downtrending at 3.1. Patient has good urine output 2 L/day. It has been difficult to wean the patient off of ventilator. Attempts at weaning are met with increasing agitation, tachycardia, hypertension. Patient is experiencing low-grade fever since 225, however without any leukocytosis, procalcitonin negative at 0.24, blood cx sent and pending , overall lower suspicion for untreated infective process, may be related to substance withdrawal. mild hy[pernatremia on labs today for which he is on free water flushes. [facility] [place] today to continue weaning attempts and detention acute care. 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: no focal neuro deficits Urinary Catheter Management^: Ramirez: Cath Placed During This Visit: yes Reason for Continuing Indwelling Catheter: Accurate Measurement of Urinary Output in Critically Ill Patients Urinary Catheter Date of Insertion: 05/09/20 Urinary Catheter Time of Insertion: 20:34 Discharge Data Data Completed and Pending: Completed Studies During Hospitalization Category Date Time Status CT chest wo con 7 1250 Routine Cat Scan 05/14/20 09:[address] head wo con* 7 0450 Routine Cat Scan 05/16/20 07:02 Completed XR chest 1V lesly ble [id number] AM LABS Exams 05/17/20 04:00 Completed XR chest 1V lesly ble [id number] Routine Exams 05/12/20 06:00 Completed XR chest 1V lesly ble [id number] Stat Exams 05/09/20 17:32 Completed XR chest 1V lesly ble 05508 Stat Exams 05/09/20 20:35 Completed CV echo complete* [id number] Routine Ultrasound 05/14/20 19:14 [place] [id number] Routin e Ultrasound 05/14/20 09:08 Completed US renal BI* [id number] 0 Routine Ultrasound 05/14/20 14:38 Completed Pending at discharge Category Date Time Status EEG electroenceph alogram Routine Exams 05/16/20 07:02 Ordered LOUIS Screen w/ Ref jody Routine Lab 05/15/20 11:20 Results Anti-Neutrophil C ytoplasmic AB Rout ine Lab 05/15/20 11:20 Received Blood Culture AM LABS Lab 05/14/20 04:15 Results Blood Culture AM LABS Lab 05/17/20 03:27 Results Blood Culture Sta t Lab 05/15/20 19:56 Results Complete Blood Co unt w/Auto AM LABS Lab 05/18/20 04:00 Ordered Comprehensive Met abolic Panel AM LA BS Lab 05/18/20 04:00 Ordered Magnesium AM LABS Lab 05/18/20 04:00 Ordered Phosphorus AM LAB S Lab 05/18/20 04:00 Ordered Labs from last 24 hours 05/17/20 05/17/20 05/17/20 04:40 03:27 03:27 WBC 8.2 RBC 4.50 Hgb 12.5 Hct 41.6 L MCV 92.4 MCH 27.8 L MCHC 30.0 RDW 14.6 Plt Count 219 MPV 10.6 H Neut % (Auto) 69.6 Lymph % (Auto) 13.3 [place] % (Auto) 11.0 Eos % (Auto) 2.7 Baso % (Auto) 0.6 Neut # (Auto) 5.71 Lymph # (Auto) 1.1 [place] # (Auto) 0.9 Eos # (Auto) 0.2 Baso # (Auto) 0.1 Nucleated RBC % (a uto) 0 Nucleated RBCs # 0.0 Specimen Type Arterial Sample Site Radial, right ABG pH 7.45 ABG pCO2 46.5 H ABG pO2 65.9 L ABG HCO3 31.9 H ABG O2 Saturation 93.1 ABG Base Excess 6.8 H [place] Test Pos A-a O2 Gradient 21.2 H Hematocrit 41.0 L Hgb O2 Saturation 91.5 L Carboxyhemoglobin 0.9 Methemoglobin 0.9 Total Hemoglobin 13.4 L Ionized Calcium 1.1 O2 Delivery Device Vent FiO2 40.0 Tidal Volume 0.60 PEEP 8.0 Casualty Underwriter ID Jonathan Sodium 156.0 H 152 H Potassium 5.1 H 5.1 Chloride 111 H Carbon Dioxide 28 Anion Gap 18.1 BUN 84 H* Creatinine 3.1 H GFR Calculation 21.0 L Glucose 102.0 94 Calculated Osmolal ity 339 H Calcium 8.9 Phosphorus 4.5 Magnesium 2.4 H Total Bilirubin 0.5 AST 40 ALT 19 Alkaline Phosphata se 81 Total Protein 6.7 Albumin 2.9 L Globulin 3.8 Procalcitonin 0.24 L[place]IS Screen 05/15/20 11:20 WBC RBC Hgb Hct MCV MCH MCHC RDW Plt Count MPV Neut % (Auto) Lymph % (Auto) [place] % (Auto) Eos % (Auto) Baso % (Auto) Neut # (Auto) Lymph # (Auto) [place] # (Auto) Eos # (Auto) Baso # (Auto) Nucleated RBC % (a uto) Nucleated RBCs # Specimen Type Sample Site ABG pH ABG pCO2 ABG pO2 ABG HCO3 ABG O2 Saturation ABG Base Excess Ever[place] Test A-a O2 Gradient Hematocrit Hgb O2 Saturation Carboxyhemoglobin Methemoglobin Total Hemoglobin Ionized Calcium O2 Delivery Device FiO2 Tidal Volume PEEP Casualty Underwriter ID Sodium Potassium Chloride Carbon Dioxide Anion Gap BUN Creatinine GFR Calculation Glucose Calculated Osmolal ity Calcium Phosphorus Magnesium Total Bilirubin AST ALT Alkaline Phosphata se Total Protein Albumin Globulin Procalcitonin L[place]IS Screen Negative Addt'l Data from Hospital Stay: Microbiology 05/14/20 17:18 Sputum - Endotracheal Wash Gram Stain - Final 05/14/20 17:18 Sputum - Endotracheal Wash Sputum Culture - Final 05/14/20 15:57 Urine,Clean Catch Urine Culture - Final 05/17/20 03:27 Blood Blood Culture - Preliminary SPECIMEN COLLECTED 05/17/20 03:27 Blood Blood Culture - Preliminary SPECIMEN COLLECTED 05/15/20 19:56 Blood Blood Culture - Preliminary NEGATIVE TO DATE 05/15/20 19:55 Blood Blood Culture - Preliminary NEGATIVE TO DATE 05/09/20 15:57 Urine,Clean Catch Legionella Urinary Antigen - Final- negative 05/09/20 15:57 Urine,Clean Catch Bacterial Antigens - Final- negative 05/12/20 18:20 Sputum - Endotracheal Tube Aspirate Sputum Culture - Final Johnna albicans 05/14/20 04:15 Blood Blood Culture - Preliminary NEGATIVE TO DATE 05/14/20 04:15 Blood Blood Culture - Preliminary NEGATIVE TO DATE 05/09/20 17:48 Blood Blood Culture - Final NO GROWTH AFTER 5 DAYS 05/09/20 18:03 Blood Blood Culture - Final Coagulase negativ staphylococc Laboratory Results WBC 8.2 10^3/uL (4.0- 10.0) 05/17/20 03:27 RBC 4.50 10^6/uL (4.1 -5.3) 05/17/20 03:27 Hgb 12.5 g/dL (11.7-1 6.6) 05/17/20 03:27 Hct 41.6 % (42.0-52.0 ) L 05/17/20 03:27 MCV 92.4 fL (80-94) 05/17/20 03:27 MCH 27.8 pg (28.0-34. 0) L 05/17/20 03: MCHC 30.0 g/dL (30.0-3 6.0) 05/17/20 03: RDW 14.6 % (12.1-15.1 ) 05/17/20 03:27 Plt Count 219 10^3/cmm (130 -400) 05/17/20 03: MPV 10.6 fL (7.4-10.4 ) H 05/17/20 03:27 Neut % (Auto) 69.6 % 05/17/20 03:27 Lymph % (Auto) 13.3 % 05/17/20 03:27 [place] % (Auto) 11.0 % 05/17/20 03: Eos % (Auto) 2.7 % 05/17/20 03: Baso % (Auto) 0.6 % 05/17/20 03: Neut # (Auto) 5.71 10^3/uL (1.8 -7.7) 05/17/20 03: Lymph # (Auto) 1.1 10^3/uL (0.8- 4.8) 05/17/20 03:27 [place] # (Auto) 0.9 10^3/uL (0.2- 0.9) 05/17/20 03:27 Eos # (Auto) 0.2 10^3/uL (0.0- 0.8) 05/17/20 03: Baso # (Auto) 0.1 10^3/uL (0.0- 0.1) 05/17/20 03: Nucleated RBC % (a uto) 0 % 05/17/20 03: Nucleated RBCs # 0.0 /100WBC 05/17/20 03:27 PT 13.50 SECONDS (12 .1-14.9) 05/09/20 18:03 INR 1.00 (0.8-1.2) 05/09/20 18:03 D-Dimer 0.89 ug/mIFEU (0- 0.59) H 05/14/20 04:15 Specimen Type Arterial 05/17/20 04:40 Sample Site Radial, right 05/17/20 04:40 ABG pH 7.45 (7.35-7.45) 05/17/20 04:40 ABG pCO2 46.5 mmHg (35-45) H 05/17/20 04:40 ABG pO2 65.9 mmHg (80.0-1 00.0) L 05/17/20 04:40 ABG HCO3 31.9 mmol/L (22-2 6) H 05/17/20 04:40 ABG O2 Saturation 93.1 05/17/20 04:40 ABG Base Excess 6.8 mmol/L (-2.0- 2.0) H 05/17/20 04:40 Everardo Test Pos 05/17/20 04:40 A-a O2 Gradient 21.2 mmHg (5-10) H 05/17/20 04:40 Hematocrit 41.0 % (42-52) L 05/17/20 04:40 Hgb O2 Saturation 91.5 % (95-100) L 05/17/20 04:40 Carboxyhemoglobin 0.9 %THgb (0.4-20 .1) 05/17/20 04:40 Methemoglobin 0.9 % (0.4-1.5) 05/17/20 04:40 Total Hemoglobin 13.4 g/dL (14-18) L 05/17/20 04:40 Sodium 156.0 mmol/L (131 -143) H 05/17/20 04:40 Potassium 5.1 mmol/L (3.5-5 .0) H 05/17/20 04:40 Glucose 102.0 mg/dL (70-1 15) 05/17/20 04:40 Ionized Calcium 1.1 mmol/L (1.1-1 .4) 05/17/20 04:40 Respiration Rate 17.0 % 05/11/20 04:50 O2 Delivery Device Vent 05/17/20 04:40 O2 Liters/Min 4.0 % 05/09/20 18:16 Mechanical Rate 19.0 05/14/20 04:10 Spontaneous Rate 17.0 % 05/11/20 04:50 FiO2 40.0 % 05/17/20 04:40 Tidal Volume 0.60 05/17/20 04:40 PEEP 8.0 cmH20 05/17/20 04:40 Specimen Drawn By Kristel 05/11/20 04:50 Casualty Underwriter ID Jonathan 05/17/20 04:40 Sodium 152 mmol/L (136-1 45) H 05/17/20 03:27 Potassium 5.1 mmol/L (3.5-5 .1) 05/17/20 03:27 Chloride 111 mmol/L (98-10 7) H 05/17/20 03:27 Carbon Dioxide 28 mmol/L (22-29) 05/17/20 03:27 Anion Gap 18.1 (5-19) 05/17/20 03:27 BUN 84 mg/dL (6-20) H* 05/17/20 03:27 Creatinine 3.1 mg/dL (0.7-1. 2) H 05/17/20 03:27 GFR Calculation 21.0 mL/min (90-1 30) L 05/17/20 03:27 Glucose 94 mg/dL (65-115) 05/17/20 03:27 Calculated Osmolal ity 339 mOsm/kg (285- 295) H 05/17/20 03:27 Lactic Acid 1.1 mmol/L (0.5-2 .2) 05/09/20 18:03 Lactate 0.6 mmol/L (0.5-2 .2) 05/14/20 04:15 Calcium 8.9 mg/dL (8.5-10 .5) 05/17/20 03:27 Phosphorus 4.5 mg/dL (2.5-4. 5) 05/17/20 03:27 Magnesium 2.4 mg/dL (1.7-2. 3) H 05/17/20 03:27 Total Bilirubin 0.5 mg/dL (0.15-1 .2) 05/17/20 03:27 AST 40 U/L (0-40) 05/17/20 03:27 ALT 19 U/L (0-41) 05/17/20 03:27 Alkaline Phosphata se 81 IU/L (40-130) 05/17/20 03:27 Creatine Kinase 140 U/L (39-308) 05/14/20 04:15 Troponin T Baselin e 16 ng/L (0-15) H 05/09/20 18:03 Troponin T 120 Min [place] 17.42 ng/L (0-15) H 05/09/20 20:03 Delta Troponin T 1.42 ABS# (0-10) 05/09/20 20:03 Troponin T Hi Sens 6Hr 20.82 ng/L (0-15) H 05/09/20 23:48 Troponin T Hi Sens 6Hr Delta 4.82 ng/L (0-12) 05/09/20 23:48 NT-Pro-B Natriuret Pep 451 pg/mL (0-125) H 05/14/20 04:15 Total Protein 6.7 g/dL (6.6-8.7 ) 05/17/20 03:27 Albumin 2.9 g/dL (3.5-5.2 ) L 05/17/20 03:27 Globulin 3.8 g/dL (1.3-4.6 ) 05/17/20 03:27 Procalcitonin 0.24 ng/mL (0-0.5 ) 05/17/20 03:27 PTH Intact 71.4 pg/mL (15-65 ) H 05/16/20 04:26 Calcium (PTH Intac t) 8.3 mg/dL (8.5-10 .5) L 05/16/20 04:26 Urine Color Yellow (Yellow) 05/14/20 15:57 Urine Appearance Sl hazy (CLEAR) 05/14/20 15:57 Urine pH 5 (5-7) 05/14/20 15:57 Ur Specific Gravit y 1.015 (1.005-1.0 30) 05/14/20 15:57 Urine Protein Neg (Negative) 05/14/20 15:57 Urine Glucose (UA) Norm (Normal) 05/14/20 15:57 Urine Ketones Negative (Negati ve) 05/14/20 15:57 Urine Blood 2+ (Negative) H 05/14/20 15:57 Urine Nitrate Negative (Negati ve) 05/14/20 15:57 Urine Bilirubin Neg (Negative) 05/14/20 15:57 Urine Urobilinogen Norm mg/dL (Negat ricardo) 05/14/20 15:57 Ur Leukocyte Homa ase Negative (Negati ve) 05/14/20 15:57 Urine RBC 25-40 /hpf (0-2) H 05/14/20 15:57 Urine WBC None /hpf (0-5) 05/14/20 15:57 Ur Squamous Epith Cells 0-4 /hpf (0-5) H 05/14/20 15:57 Uric Acid Crystals 10-15 /hpf H 05/14/20 15:57 Triple Phos Bon[place] ls 15-25 /hpf H 05/14/20 15:57 Amorphous Sediment Not Reportable 05/14/20 15:57 Urine Bacteria 2+ /hpf (NONE) H 05/14/20 15:57 Hyaline Casts 0-4 /lpf H 05/09/20 18:03 Urine Mucus 2+ /hpf 05/09/20 18:03 U Random Total Pro tein 15 mg/dL 05/14/20 15:57 Ur Random Sodium 70 mmol/L 05/14/20 15:57 Ur Random Urea Nit rogn 539 mg/dL 05/14/20 15:57 Urine Creatinine 62 mg/dL (39-259) 05/14/20 15:57 Random Vancomycin 7.2 ug/mL (20.0-4 0.0) L 05/14/20 04:15 Urine Opiates Scre en Negative ng/mL (N egative) 05/09/20 18:03 Ur Barbiturates Sc reen Negative ng/mL (N egative) 05/09/20 18:03 Ur Phencyclidine S crn Negative ng/mL (N egative) 05/09/20 18:03 Ur Amphetamines Sc reen Positive ng/mL (N egative) H 05/09/20 18:03 U Benzodiazepines Scrn Negative ng/mL (N egative) 05/09/20 18:03 Urine Cocaine Scre en Negative ng/mL (N egative) 05/09/20 18:03 U Marijuana (THC) Screen Positive ng/mL (N egative) H 05/09/20 18:03 Ethyl Alcohol < 10 mg/dL (0-10) 05/09/20 20:03 L[facility] Screen Negative (NEGATI VE) 05/15/20 11:20 Hepatitis A IgM Ab Non-reactive (No nreactive) 05/14/20 04:15 Hep Bs Antigen Non-reactive (No nreactive) 05/14/20 04:15 Hep B Core IgM Ab Non-reactive (No nreactive) 05/14/20 04:15 Hepatitis C Antibo dy Non-reactive (No nreactive) 05/14/20 04:15 HIV 1&2 Ab & HIV 1 Ag Non-reactive (No n-Reactiv) 05/14/20 04:15 HIV 1&2 Antibody Non-reactive (No n-Reactiv) 05/14/20 04:15 SARS-CoV-2 Ag (Rap id) Negative (Negati ve) 05/09/20 18:25 Anti-Streptolysin O Ab <50 IU/mL (<200) 05/15/20 11:[address] 05/14/20 09:08 IMPRESSION: 1. Small bilateral pleural effusions with compressive atelectasis left lower lobe with air bronchograms. Recommend correlation for pneumonia. 2. Slight patchy atelectasis right lower lobe. 3. Upper lungs are well aerated. 4. Partially visualized cholelithiasis. 5. Endotracheal tube and enteric tube. Renal Ultrasound 05/14/20 14:38 IMPRESSION: 1. Simple left renal cyst measuring 2.5 x 1.9 x 2.8cm 2. No hydronephrosis in either kidney. 3. Ramirez catheter. Head CT 05/16/20 07:02 IMPRESSION: Negative for acute intracranial abnormality. Radiation Dose CTDIVOL = (mGy): DLP = 918.34 (mGy-cm) Chest X-Ray 05/17/20 04:00 IMPRESSION: 1. Increasing right basal infiltrate since prior study. 2. Unchanged left basilar opacity that probably represents pleural effusion with some compressive atelectasis of the left lower lobe. 3. ET tube and enteric tube in satisfactory position. Vitals: Last Vital Signs Temp 100.5 F H 05/17/20 11:03 Pulse 87 05/17/20 10:00 Resp 19 H 05/17/20 11:01 BP 124/107 05/17/20 10:00 Pulse Ox 93 05/17/20 10:00 Discharge Plan Discharge Patient Disposition: Xfer LT Condition: Stable Prescriptions: No Action Unable to Assess RF: 0 Discharge Orders: Discharge Order (Routine); Ordered 05/17/20 Ordered By: Ana Denson Discharge Attestations Time Spent in Discharge Care*: critical care time Critical Care Time (min): 45 Quality Metrics Clinical Quality Measures During this hospital stay, did patient experience: None Coding Level of Care Code Acute Advertising Solicitor for g Fwd Diagnoses Acute on chronic respiratory failure with hypoxia and hypercapnia J96.21; J96.22 Sepsis A41.9 Pneumonia J18.9 COPD exacerbation J44.1 Alcohol abuse F10.10 XU (acute kidney injury) N17.9 Polysubstance abuse F19.10 Asthma J45.909
--- NOTE | 2020-05-17 13:23 | PM.PN ---
Subjective Subjective: Interval history: No new issues, remains heavily sedated, unable to taper sedation down due to severe agitation. Unable to bring him off the ventilator as a consequence of this. Good urine output. Hemodynamics remained stable. Medications: Reviewed: Yes Medication Review Details: Current Medications Acetaminophen (Acetaminophen 325 Mg Tablet) 325 mg PO Q6H PRN PRN Reason: fever Acetylcysteine (Acetylcysteine 200 Mg/Ml Sdv 4 Ml) 100 mg INHALATION Q6H.RESPIRATORY NATALIE Last Admin: 05/15/20 03:14 Dose: 100 mg Documented by: Albuterol/Ipratropium (Ipratropium-Albuterol 3 Ml Neb) 3 ml INHALATION Q6H.RESPIRATORY NATALIE Last Admin: 05/15/20 03:14 Dose: 3 ml Documented by: Budesonide (Budesonide 0.5 Mg/2 Ml Neb) 0.25 mg INHALATION BID.RESPIRATORY NATALIE Last Admin: 05/14/20 20:22 Dose: 0.25 mg Documented by: Enoxaparin Sodium (Enoxaparin 40 Mg/0.4 Ml Syringe) 40 mg SUBCUT Q24H NATALIE Famotidine (Famotidine 20 Mg/2 Ml Inj) 20 mg IVP Q12H NATALIE Last Admin: 05/15/20 05:54 Dose: 20 mg Documented by: Folic Acid (Folic Acid 1 Mg Tablet) 1 mg PO DAILY NATALIE Last Admin: 05/14/20 08:58 Dose: 1 mg Documented by: Fentanyl 1,000 mcg/ Sodium (Chloride) 100 mls @ 0 mls/hr IV .Q0M NATALIE; Protocol Last Titration: 05/15/20 04:24 Dose: 75 mcg/hr, 7.5 mls/hr Documented by: Piperacillin Sod/Tazobactam (Sod 3.375 gm/ Sodium Chloride) 50 mls @ 12.5 mls/hr IV Q8H NATALIE; Protocol Stop: 05/15/20 09:59 Last Admin: 05/15/20 02:42 Dose: 12.5 mls/hr Documented by: Propofol (Diprivan) 1,000 mg in 100 mls @ 0 mls/hr IV .Q0M NATALIE; Protocol Last Titration: 05/15/20 01:25 Dose: 0 mcg/kg/min, 0 mls/hr Documented by: Dexmedetomidine HCl 400 mcg/ (Sodium Chloride) 104 mls @ 0 mls/hr IV .Q0M NATALIE; Protocol Last Titration: 05/15/20 04:55 Dose: 0.7 mcg/kg/hr, 16.3 mls/hr Documented by: Sodium Bicarbonate 150 meq/ (Dextrose) 1,150 mls @ 100 mls/hr IV .[id number] [facility] Multivitamins Therapeutic (Multivitamin Therapeutic Tablet) 1 tab PO DAILY NATALIE Last Admin: 05/14/20 08:58 Dose: 1 tab Documented by: Thiamine Mononitrate (Thiamine 100 Mg Tablet) 100 mg PO DAILY [facility] Last Admin: 05/14/20 08:57 Dose: 100 mg Documented by: Vitals/I&O/Wt Last Vital Signs Temp 100.5 F H 05/17/20 11:03 Pulse 87 05/17/20 10:00 Resp 19 H 05/17/20 11:01 BP 124/107 05/17/20 10:00 Pulse Ox 93 05/17/20 10:00 05/16/20 05/17/20 05/17/20 22:59 06:59 14:59 Intake Total 444.000 / 992.000 563.543 / 1555.543 268.167 / 268.167 Output Total 2250 / 2950 500 / 500 Balance -1806.000 / -1958.000 563.543 / -1394.457 -231.833 / -231.833 Physical Exam Narrative: EXAM NARRATIVE: HEENT: Wet mucosa, no jvp, non icteric Lungs: Bilaterally clear without discernible wheeze, rales in all lung zones CVS: S1 S2, no murmurs Abdo: Soft, BS ok Ext 4: Minimal edema, peripheral perfusion with no cyanosis Neurological: Sedated Urinary Catheter Management^: Ramirez: Cath Placed During This Visit: yes Reason for Continuing Indwelling Catheter: Accurate Measurement of Urinary Output in Critically Ill Patients Urinary Catheter Date of Insertion: 05/09/20 Urinary Catheter Time of Insertion: 20:34 Data : 05/17/20 03:27 05/17/20 03:27 Micro: Microbiology 05/14/20 17:18 Gram Stain - Final Sputum - Endotracheal Wash Sputum Culture - Final 05/14/20 15:57 Urine Culture - Final Urine,Clean Catch 05/17/20 03:27 Blood Culture - Preliminary Blood SPECIMEN COLLECTED 05/17/20 03:27 Blood Culture - Preliminary Blood SPECIMEN COLLECTED 05/15/20 19:56 Blood Culture - Preliminary Blood NEGATIVE TO DATE 05/15/20 19:55 Blood Culture - Preliminary Blood NEGATIVE TO DATE 05/09/20 15:57 Legionella Urinary Antigen - Final Urine,Clean Catch Bacterial Antigens - Final 05/12/20 18:20 Sputum Culture - Final Sputum - Endotracheal Tube Aspirate Johnna albicans A&P Additional A&P Information 1. XU Picture is most consistent with acute tubular injury, from the precipitous drop in blood pressure following hospitalization from 160 systolic to 95 systolic in the setting of hypoxia. Creatinine has come down Strict ins and outs Avoid usual nephrotoxic agents Dose medications for GFR less than 30. 2. Vent dependent respiratory failure Vent settings and management per ICU team. 3. Lytes Sodium drifting up, will give free water flushes 200ml Q6 4. Sepsis Currently receiving Vanco and Zosyn. Goal Vanco trough < 19. 5. Alcohol and drug withdrawal Complicating his care; CIWA protocol inc thiamine and sedatives Will need full detox and rehab 6. Hypertension Much better controlled today Plans for transfer to [facility] Jacob Castellanos MD Nephrology [phone] Patient seen and examined via telemedicine, with the assistance of the bedside RN > 25 min spent in evaluation and mgmt of patient Attestations Medical Necessity Statement*: eval for XU Coding Level of Care Code Acute Bullet Slugs Inspector for Franklin Engel
[2020-05-17] MEDS: propofol 1,000 MG/100 ML INJ 16.2 MG IV (15:01)
--- NOTE | 2020-05-17 15:43 | PC.NURSE ---
1035 Patient vent turned to MMV mode per RT and sedation turned down per Dr. Denson's order for breathing trial. 1100 Dr. Denson and RT at bedside. Patient with increased RR on MMV vent setting. Dr. Denson gave verbal order to turn sedation back on and put vent back to CMV. Labs and vitals reviewed with Dr. Denson. Orders to transfer patietn to LTAC.
[2020-05-22 22:08] LABS: ANCA Interp Negative (Negative)
== END 2020-05-17 15:23 | DRG 870 ==
LOC: ER 17:43 → ICU 20:04
PROVIDERS: Internal Medicine; Internal Medicine Critical Care Medicine; Internal Medicine Nephrology; Admitting Provider Internal Medicine; Emergency Provider Emergency Medicine; PCP Family Medicine Adult Medicine; Visit Provider Student in an Organized Health Care Education/Training Program
PROC: 0BJ08ZZ Inspection of Tracheobronchial Tree, Via Natural or Artificial Opening Endoscopic (ICD-10-PCS; CPT 31622; principal; 2020-05-14 15:00)
DX: A41.9 Sepsis, unspecified organism (principal); J96.22 Acute and chronic respiratory failure with hypercapnia; J96.21 Acute and chronic respiratory failure with hypoxia; N17.0 Acute kidney failure with tubular necrosis; F10.239 Alcohol dependence with withdrawal, unspecified; J44.1 Chronic obstructive pulmonary disease with (acute) exacerbation; J44.0 Chronic obstructive pulmonary disease with (acute) lower respiratory infection; J98.11 Atelectasis; E87.4 Mixed disorder of acid-base balance; J90 Pleural effusion, not elsewhere classified; F15.10 Other stimulant abuse, uncomplicated; F12.10 Cannabis abuse, uncomplicated; Z99.81 Dependence on supplemental oxygen; E87.5 Hyperkalemia; F32.9 Major depressive disorder, single episode, unspecified; F17.210 Nicotine dependence, cigarettes, uncomplicated; G47.33 Obstructive sleep apnea (adult) (pediatric); Z87.11 Personal history of peptic ulcer disease
CPT/HCPCS: 31500; 31624; 36415; 36600; 51702; 70450; 71045; 71250; 76770; 80048; 80051; 80053; 80074; 80202; 80306; 80307; 81001; 82310; 82330; 82550; 82570; 82803; 82805; 83516; 83605; 83735; 83880; 83970; 84100; 84145; 84156; 84300; 84484; 84540; 85025; 85378; 85610; 86038; 86060; 86403; 87040; 87070; 87086; 87106; 87205; 87426; 87449; 87806; 93005; 93306; 93970; 94002; 94003; 94640; 94799; 96365; 96366; 96367; 96372; 96375; 99291; A4570; C9113; J0330; J0456; J0610; J0696; J1170; J1650; J1815; J1940; J2060; J2250; J2270; J2543; J2704; J2930; J3010; J3370; J3411; J3490; J7030; J7050; J7608; J7626; J7799; Q3014